=== PATIENT | male | born 1950 | race Caucasian/White ===

== ENCOUNTER 2017-02-20 08:56 | Inpatient (IN) | payer OTHER ==
[~2017-02-20] VITALS: Ht 175.3 cm; Wt 48.6 kg
[2017-02-20] VITALS (21 sets, daily range): BP systolic 103–176; BP diastolic 68–97; PULSE 91–134; RESP 18–25; TEMP 97.2–98.4; O2SAT 87–99
[2017-02-20] MEDS ORDERED: LORazepam 2 MG/ML VIAL ONE (09:08)
[2017-02-20] MEDS ORDERED: LORazepam 2 MG/ML VIAL IV PUSH ONE (09:15)
[2017-02-20] MEDS ORDERED: SODIUM CHLORIDE 0.9% FLUSH 10 ML FLUSH IVF PRN (09:15)
[2017-02-20] MEDS: RESP: ALBUTEROL 2.5 MG/IPRATROPIUM 0.5 MG NEB (SCH) INH (09:19)
--- NOTE | 2017-02-20 09:27 | RADRPT ---
EXAM DATE/TIME: 02/20/2017 09:03 [facility] COMPARISON: No previous studies available for comparison. INDICATIONS : Short of breath with wheezing. MEDICAL HISTORY : Chronic obstructive pulmonary disease. Congestive heart failure. SURGICAL HISTORY : None. ENCOUNTER: Initial ACUITY: 1 day PAIN SCORE: 0/10 LOCATION: Bilateral chest FINDINGS: Single view of the chest demonstrates a right-sided tension pneumothorax with leftward shift of the c ardiac mediastinal structures. Left lung demonstrates emphysematous changes. There is no evidence of consolidating airspace disease. Heart and mediastinal structures are otherwise unremarkable. CONCLUSION: Right-sided tension pneumothorax; emergency department physician notified immediately. Yimi Warren MD on February 20, 2017 at 9:22 Board Certified Radiologist. This report was verified electronically.
[2017-02-20] MEDS ORDERED: LIDOCAINE 1%/EPINEPHrine 1:100,000 SOLN 20 ML VIAL ONE (09:31)
[2017-02-20] MEDS: KETAMINE HCL 500 MG/10 ML VIAL ONE ×2 (09:34→09:42)
[2017-02-20 09:35] LABS: AUTOMATED NEUTROPHIL # 7.7 TH/MM3 (1.8-7.7); BASOPHIL # 0.1 TH/MM3 (0-0.2); BASOPHIL % 0.6 % (0.0-2.0); EOSINOPHIL # 0.3 TH/MM3 (0-0.4); EOSINOPHIL % 2.4 % (0.0-4.0); HEMATOCRIT 46.2 % (39.0-51.0); HEMO FLAGS DIFF FINAL; LYMPH % 24.4 % (9.0-44.0); LYMPHOCYTE # 3.1 TH/MM3 (1.0-4.8); MEAN CORPUSCULAR HEMOGLOBIN 27.8 PG (27.0-34.0); MEAN CORPUSCULAR HGB CONC 31.6 % (32.0-36.0); MONO % 11.5 % (0.0-8.0); NEUT % 61.1 % (16.0-70.0); PLATELET COUNT 280 TH/MM3 (150-450); RED BLOOD COUNT 5.25 MIL/MM3 (4.50-5.90); RED CELL DISTRIBUTION WIDTH 15.3 % (11.6-17.2); WHITE BLOOD COUNT 12.7 TH/MM3 (4.0-11.0)
[2017-02-20 09:37] LABS: PROTHROMBIN TIME - PATIENT 11.1 SEC (9.8-11.6)
[2017-02-20] MEDS: KETAMINE HCL 500 MG/5 ML VIAL IV PUSH ONE ×2 (09:43→11:47)
--- NOTE | 2017-02-20 10:06 | RADRPT ---
EXAM DATE/TIME: 02/20/2017 09:48 [facility] COMPARISON: CHEST SINGLE AP, February 20, 2017, 9:03. INDICATIONS : Post chest tube placement. MEDICAL HISTORY : Chronic obstructive pulmonary disease. Congestive heart failure. SURGICAL HISTORY : None. ENCOUNTER: Subsequent ACUITY: 1 day PAIN SCORE: Non-responsive. LOCATION: Bilateral chest FINDINGS: A single view of the chest demonstrates reexpansion of the right lung. Small right apical pneumothora x measures 4 mm of pleural separation. Small caliber chest tube in the right lower hemithorax. Left b asilar density and blunting left costophrenic angle. Emphysematous changes. Osseous structures are i ntact. CONCLUSION: 1. Small caliber right-sided chest tube with small right apical pneumothorax. 2. Reexpansion of the right lung. 3. Probable left basilar scarring. Alber Gibson MD on February 20, 2017 at 10:02 Board Certified Radiologist. This report was verified electronically.
[2017-02-20 10:13] LABS: ALKALINE PHOSPHATASE 87 U/L (45-117); ALT (GPT) 26 U/L (12-78); ANION GAP 10 MEQ/L (5-15); AST (GOT) 33 U/L (15-37); BLOOD UREA NITROGEN 13 MG/DL (7-18); CHLORIDE 103 MEQ/L (98-107); CREATINE KINASE 127 U/L (39-308); GLOMERULAR FILTRATION RATE 96 ML/MIN (>89); MAGNESIUM 2.3 MG/DL (1.5-2.5); SODIUM (NA) 138 MEQ/L (136-145); TOTAL BILIRUBIN ADULT 0.6 MG/DL (0.2-1.0)
[2017-02-20 10:14] LABS: POTASSIUM 4.4 MEQ/L (3.5-5.1)
[2017-02-20 10:26] LABS: CKMB 5.7 NG/ML (0.5-3.6)
[2017-02-20] MEDS ORDERED: ACETAMINOPHEN 325 MG TAB PO PRN (11:00)
[2017-02-20] MEDS ORDERED: NALOXONE HCL 0.4 MG/ML AMP IV PRN (11:00)
[2017-02-20] MEDS ORDERED: ONDANSETRON HCL 4 MG/2 ML VIAL IVP PRN (11:00)
[2017-02-20] MEDS ORDERED: SODIUM CHLORIDE 0.9% FLUSH 10 ML FLUSH IV FLUSH PRN (11:00)
[2017-02-20] MEDS ORDERED: BISACODYL 10 MG SUPP RECTAL PRN (11:00)
--- NOTE | 2017-02-20 11:25 | HHI.HP ---
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 in [place], came to [facility] to pick a car to deliver to [place], he has COPD/Emphysema with status post Left Upper lobe resection with no clear history of Neoplasia he has nutrition specialist in [place] Doctor Bert Hampton he had last appointment In October this year and has next follow up in March this year, he states he woke up in am with some chest discomfort, but when came to [facility] had shortness of breath worsening, he was trying to use his inhaler but was told by his coordinator to get an ambulance he was brought in to ER and found Right Pneumothorax initially on BiPAP and then Chest tube placement. stable Review of Systems Respiratory: COMPLAINS OF: Shortness of breath Past Family Social History Past Medical History COPD/Emphysema Past Surgical History Left Upper lobe resection Reported Medications Advair Singulair Spiriva Allergies: Coded Allergies: No Known Allergies (Unverified , 02/20/17) Active Ordered Medications Current Medications Medications (Trade) Dose Ordered Sig/Pawel Route Start Time Stop Time Status Last Admin (NS 1000 ml Inj) 1,000 ml @ 100 mls/hr Q10H IV 02/20/17 11:00 (NS Flush) 2 ml UNSCH PRN IV FLUSH 02/20/17 11:00 (NS Flush) 2 ml BID IV FLUSH 02/20/17 21:00 (Tylenol) 650 mg Q4H PRN PO 02/20/17 11:00 (Zofran Inj) 4 mg Q6H PRN IVP 02/20/17 11:00 (Dulcolax Supp) 10 mg DAILY PRN RECTAL 02/20/17 11:00 (Colace) 100 mg Q12HR PO 02/20/17 11:00 (Heparin Inj) 5,000 units Q8H SQ 02/20/17 12:00 (Narcan Inj) 0.4 mg UNSCH PRN IV 02/20/17 11:00 (Morphine Inj) 2 mg Q3H PRN IV PUSH 02/20/17 11:00 Family History Asked and denied Social History 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 Physical Exam Vital Signs Vital Signs Date Time Temp Pulse Resp B/P Pulse Ox O2 Delivery O2 Flow Rate FiO2 02/20/17 09:00 87 Room Air 4 02/20/17 09:00 115 25 95 BiPAP 60 02/20/17 09:00 95 BiPAP 60 02/20/17 09:00 115 20 176/97 95 BiPAP 60 02/20/17 09:00 96 35 02/20/17 08:58 97.2 115 25 176/97 87 Physical Exam GENERAL: No acute distress. SKIN: No rashes, ecchymoses or lesions. Cool and dry. HEAD: Atraumatic. Normocephalic. No temporal or scalp tenderness. EYES: Pupils equal round and reactive. Extraocular motions intact. No scleral icterus. No injection or drainage. ENT: Nose without bleeding. NECK: Trachea midline. No JVD or lymphadenopathy. Supple, nontender, no meningeal signs. CARDIOVASCULAR: Regular rate and rhythm without murmurs, gallops, or rubs. RESPIRATORY: Decreased breath sounds bilateral, mild expiratory wheezing GASTROINTESTINAL: Abdomen soft, non-tender, nondistended. No hepato-splenomegaly , or palpable masses. No guarding. MUSCULOSKELETAL: Extremities without clubbing, cyanosis, or edema. No joint tenderness, effusion, or edema noted. No calf tenderness. Negative Homans sign bilaterally. NEUROLOGICAL: Awake and alert. No focal deficits. Laboratory Laboratory Tests Test 02/20/17 09:10 White Blood Count 12.7 Red Blood Count 5.25 Hemoglobin 14.6 Hematocrit 46.2 Mean Corpuscular Volume 88.0 Mean Corpuscular Hemoglobin 27.8 Mean Corpuscular Hemoglobin 31.6 Concent Red Cell Distribution Width 15.3 Platelet Count 280 Mean Platelet Volume 8.2 Neutrophils (%) (Auto) 61.1 Lymphocytes (%) (Auto) 24.4 Monocytes (%) (Auto) 11.5 Eosinophils (%) (Auto) 2.4 Basophils (%) (Auto) 0.6 Neutrophils # (Auto) 7.7 Lymphocytes # (Auto) 3.1 Monocytes # (Auto) 1.5 Eosinophils # (Auto) 0.3 Basophils # (Auto) 0.1 CBC Comment DIFF FINAL Differential Comment Prothrombin Time 11.1 Prothromb Time International 1.0 Ratio Activated Partial 25.0 Thromboplast Time Sodium Level 138 Potassium Level 4.4 Chloride Level 103 Carbon Dioxide Level 25.0 Anion Gap 10 Blood Urea Nitrogen 13 Creatinine 0.81 Estimat Glomerular Filtration 96 Rate Random Glucose 165 Calcium Level 8.7 Magnesium Level 2.3 Total Bilirubin 0.6 Aspartate Amino Transf 33 (AST/SGOT) Alanine Aminotransferase 26 (ALT/SGPT) Alkaline Phosphatase 87 Total Creatine Kinase 127 Creatine Kinase MB 5.7 Troponin I 0.04 B-Type Natriuretic Peptide 40 Total Protein 7.5 Albumin 4.0 Result Diagram: 02/20/17 0910 02/20/17909 Imaging Last Impressions Chest X-Ray 02/20/17903 Signed Impressions: Service Date/Time: , February 20, 2017 09:03 - CONCLUSION: Right-sided tension pneumothorax; emergency department physician notified immediately. Yimi Warren MD Assessment and Plan Problem List: (1) COPD (chronic obstructive pulmonary disease) ICD Code: J44.9 Status: Acute (2) Pneumothorax on left ICD Code: J93.9 Status: Acute (3) S/P chest tube placement ICD Code: Z93.8 Status: Acute Assessment and Plan 1. Acute Pneumothorax probably related to Severe COPD/Emphysema status post Right Chest tube placement, continue Oxygen, Cardiac Monitoring, nutrition specialist consult, Bronchodilator, Mucolytic and Incentive spirometry 2. COPD/Emphysema do not look exacerbated 3. Tobacco dependence strongly recommended to stop smoking 4. Status post Left upper Lobe resection no clear diagnosis, followed by nutrition specialist Doctor Bert Hampton in [facility]. DVT prophylaxis with Heparin Gastric protection with Pepcid. Follow laboratory and Echocardiogram Code Status Full Code. Discussed Condition With ER specialist Doctor Hird and Patient. Physician Certification 2 Midnight Certification Type: Admission for Inpatient Services Order for Inpatient Services The services are ordered in accordance with Medicare regulations or non- Medicare payer requirements, as applicable. In the case of services not specified as inpatient-only, they are appropriately provided as inpatient services in accordance with the 2-midnight benchmark. Estimated LOS (days): 3 days is the estimated time the patient will need to remain in the hospital, assuming treatment plan goals are met and no additional complications. Post-Hospital Plan: Home Tanvir aPz MD February 20, 2017 11:25
--- NOTE | 2017-02-20 11:41 | PD ---
HPI Chief Complaint: Respiratory Distress Time Seen by Provider: 09:03 Travel History International Travel<30 days: No Contact w/Intl Traveler<30days: No Traveled to known affect area: No History of Present Illness HPI 66-year-old male presents with shortness of breath and wheezing. He received albuterol and Solu-Medrol prior to arrival. Patient can only nod his head yes or no and is leaning forward in the bed. History is significantly limited PFSH Past Medical History COPD: Yes Tetanus Vaccination: Unknown Influenza Vaccination: Yes Past Surgical History Oral Surgery: Yes Thoracic Surgery: Yes (UPPER LEFT LOBECTOMY ) Social History Alcohol Use: Yes (OCCASIONALLY ) Tobacco Use: Yes Substance Use: No Allergies-Medications (Allergen,Severity, Reaction): Coded Allergies: No Known Allergies (Unverified , 02/20/17) Review of Systems ROS Limitations: Clinical Condition Except as stated in HPI: all other systems reviewed are Neg (denies after chest tube other than shortness of breath) Physical Exam Exam Limitations: Clinical Condition Narrative GENERAL: Ill-appearing, well-developed patient. SKIN: Warm and dry. HEAD: Normocephalic and atraumatic. EYES: No injection or drainage. ENT: No nasal drainage noted. NECK: Supple, trachea midline. CARDIOVASCULAR: Tachycardic rate and regular rhythm RESPIRATORY: Decreased breath sounds on the right, wheezing on the left, tachypnea noted GASTROINTESTINAL: Abdomen soft, non-tender EXTREMITIES: No edema. NEUROLOGICAL: Awake, moves extremities, shakes head yes/no Data Data Last Documented VS Vital Signs Date Time Temp Pulse Resp B/P Pulse Ox O2 Delivery O2 Flow Rate FiO2 02/20/17 10:00 94 100 02/20/17 09:00 Room Air 4 02/20/17 09:00 115 25 02/20/17 09:00 176/97 02/20/17 08:58 97.2 Orders Complete Blood Count With Diff (02/20/17 09:04) Comprehensive Metabolic Panel (02/20/17 09:04) B-Type Natriuretic Peptide (02/20/17 09:04) Act Partial Throm Time (Ptt) (02/20/17 09:04) Prothrombin Time / Inr (Pt) (02/20/17 09:04) Magnesium (Mg) (02/20/17 09:04) Ckmb (Isoenzyme) Profile (02/20/17 09:04) Troponin I (02/20/17 09:04) Influenzae A/B Antigen (02/20/17 09:04) Iv Access Insert/Monitor (02/20/17 09:04) Electrocardiogram (02/20/17 09:04) Ecg Monitoring (02/20/17 09:04) Oximetry (02/20/17 09:04) Oxygen Administration (02/20/17 09:04) Chest, Single Ap (02/20/17 09:04) Sodium Chloride 0.9% Flush (Ns Flush) (02/20/17 09:15) Albuterol-Ipratropium Neb (Duoneb Neb) (02/20/17 09:15) Resp Bipap / Cpap Non Invas Vt (02/20/17 09:04) Lorazepam Inj (Ativan Inj) (02/20/17 09:15) Lorazepam Inj (Ativan Inj) (02/20/17 09:08) Lidocai-Epi 1%-1:100,000 Inj (Xylocaine- (02/20/17 09:31) Ketamine Inj (Ketalar Inj) (02/20/17 09:45) Ketamine Inj (Ketalar Inj) (02/20/17 09:34) Chest, Single Ap (02/20/17 ) CKMB (02/20/17 09:10) CKMB% (02/20/17 09:10) Admit Order (Ed Use Only) (02/20/17 10:51) Labs Laboratory Tests Test 02/20/17 09:10 White Blood Count 12.7 TH/MM3 Red Blood Count 5.25 MIL/MM3 Hemoglobin 14.6 GM/DL Hematocrit 46.2 % Mean Corpuscular Volume 88.0 FL Mean Corpuscular Hemoglobin 27.8 PG Mean Corpuscular Hemoglobin 31.6 % Concent Red Cell Distribution Width 15.3 % Platelet Count 280 TH/MM3 Mean Platelet Volume 8.2 FL Neutrophils (%) (Auto) 61.1 % Lymphocytes (%) (Auto) 24.4 % Monocytes (%) (Auto) 11.5 % Eosinophils (%) (Auto) 2.4 % Basophils (%) (Auto) 0.6 % Neutrophils # (Auto) 7.7 TH/MM3 Lymphocytes # (Auto) 3.1 TH/MM3 Monocytes # (Auto) 1.5 TH/MM3 Eosinophils # (Auto) 0.3 TH/MM3 Basophils # (Auto) 0.1 TH/MM3 CBC Comment DIFF FINAL Differential Comment Prothrombin Time 11.1 SEC Prothromb Time International 1.0 RATIO Ratio Activated Partial 25.0 SEC Thromboplast Time Sodium Level 138 MEQ/L Potassium Level 4.4 MEQ/L Chloride Level 103 MEQ/L Carbon Dioxide Level 25.0 MEQ/L Anion Gap 10 MEQ/L Blood Urea Nitrogen 13 MG/DL Creatinine 0.81 MG/DL Estimat Glomerular Filtration 96 ML/MIN Rate Random Glucose 165 MG/DL Calcium Level 8.7 MG/DL Magnesium Level 2.3 MG/DL Total Bilirubin 0.6 MG/DL Aspartate Amino Transf 33 U/L (AST/SGOT) Alanine Aminotransferase 26 U/L (ALT/SGPT) Alkaline Phosphatase 87 U/L Total Creatine Kinase 127 U/L Creatine Kinase MB 5.7 NG/ML Troponin I 0.04 NG/ML B-Type Natriuretic Peptide 40 PG/ML Total Protein 7.5 GM/DL Albumin 4.0 GM/DL MDM Medical Decision Making Medical Screen Exam Complete: Yes Emergency Medical Condition: Yes Medical Record Reviewed: No (no prior records) Interpretation(s) CBC & BMP Diagram 02/20/17 09:10 Last 24 hours Impressions Chest X-Ray 02/20/17 0904 Signed Impressions: Service Date/Time: February 09:03 - CONCLUSION: Right-sided tension pneumothorax; emergency department physician notified immediately. Yimi Warren MD Chest X-Ray 02/20/17 0000 Signed Impressions: Service Date/Time: February 09:48 - CONCLUSION: 1. Small caliber right-sided chest tube with small right apical pneumothorax. 2. Reexpansion of the right lung. 3. Probable left basilar scarring. Alber Gibson MD EKG is limited by artifact and wandering baseline but no obvious STEMI criteria , sinus tachycardia 110 Differential Diagnosis Pneumothorax, COPD, pneumonia, effusion Narrative Course Patient arrived with significant shortness of breath. BiPAP placed. Solu- Medrol given by ambulance team. Additional DuoNeb's ordered. Ativan ordered to help patient tolerate BiPAP Patient continued to appear an extremist and chest x-ray reviewed which showed large right sided pneumothorax. Pigtail chest tube placed with ketamine sedation by Dr. Beckett and BiPAP removed. As patient awoke he started talking and was able to be placed on nasal cannula and felt significantly better. He will be admitted to the intermediate care area for close monitoring. Critical Care Narrative Aggregate critical care time was 40 minutes. Time to perform other separately billable procedures was not included in the critical care time. My time did not include minutes spent treating any other patients simultaneously or on activities that did not directly contribute to the patient's treatment. The services I provided to this patient were to treat and/or prevent clinically significant deterioration that could result in: Respiratory failure I provided critical care services requiring my management, as noted below: Chart data review, documentation time, medication orders and management, vital sign assessments/reviewing monitor data, ordering and reviewing lab tests, ordering and interpreting/reviewing x-rays and diagnostic studies, care of the patient and discussion of the patient with the admitting physicians. Procedures Procedure Narrative CHEST TUBE THORACOSTOMY: The right chest was prepped with ChloraPrep. The area of the fifth intercostal interspace was infiltrated with 1% lidocaine. A 0.5 centimeter incision was made with a scalpel at the fifth intercostal space. Pigtail placed over trocar at fourth intercostal interspace performed and the pleura was punctured with immediate bautista of air. directed posteriorly and superiorly. The thoracostomy tube was secured with dressing. Patient tolerated procedure well. Physician Communication Physician Communication dr harper agrees to admit dr ordaz will follow chest tube and see patient Diagnosis Primary Impression: Pneumothorax, right Additional Impression: COPD (chronic obstructive pulmonary disease) Qualified Code: J44.1 - Chronic obstructive pulmonary disease with acute exacerbation Admitting Information Admitting Physician Requests: Admit Bria Correa MD February 20, 2017 11:41
[2017-02-20] MEDS: FAMOTIDINE 20 MG/2 ML VIAL IV PUSH SCH (11:59)
[2017-02-20] MEDS: REMOVE OLD PATCH T-DERMAL SCH (12:00)
[2017-02-20] MEDS: DOCUSATE SODIUM 100 MG CAP PO SCH ×2 (12:00→21:00)
[2017-02-20] MEDS: NICOTINE 14 MG/24 HR PATCH T-DERMAL SCH (12:00)
[2017-02-20] MEDS ORDERED: RESP: ALBUTEROL 2.5 MG/IPRATROPIUM 0.5 MG NEB (SCH) NEB (12:00)
[2017-02-20] MEDS: SODIUM CHLOR 0.9% 1000 ML INJ 1,000 ML IV SCH ×2 (12:01→21:49)
[2017-02-20] MEDS: HEPARIN SODIUM - SQ 10,000 UNITS/ML VIAL SQ SCH ×2 (12:02→21:41)
[2017-02-20] MEDS: MORPHINE SULFATE 4 MG/ML INJ IV PUSH PRN ×2 (14:58→21:49)
[2017-02-20] MEDS: RESP: ALBUTEROL 2.5 MG/IPRATROPIUM 0.5 MG NEB (SCH) NEB ×2 (15:22→21:07)
--- NOTE | 2017-02-20 15:23 | EKG ---
Date Performed: 02/20/2017 Time Performed: 09:05:35 PTAGE: 66 years EKG: BASELINE ARTIFACT PRESENT. SINUS TACHYCARDIA WITH OCCASIONAL SUPRAVENTRICULAR PREMATURE COM PLEXES ABNORMAL RHYTHM ECG INTERPRETATION BASED ON A DEFAULT AGE OF 40 YEARS I would repeat electroca rdiogram as subtle ST-T wave changes cannot be excluded given the artifact. NO PREVIOUS TRACING DOCTOR: Dwayne Medrano Interpretating Date/Time 02/20/2017 15:22:18
[2017-02-20 16:17] LABS: BLOOD, URINE TRACE (NEG); COMMENT (UR) CULT NOT INDICATED; CULTURE IF INDICATED CULT NOT INDICATED; GLUCOSE,URINE 300 mg/dL (NEG); HYALINE CAST, URINE 3 /lpf (RARE); KETONE, URINE 80 mg/dL (NEG); MUCUS URINE FEW /lpf (OCC); NITRITE,URINE NEG (NEG); PH, URINE 5.5 (5.0-8.5); SQUAMOUS EPITHELIAL CELL URINE <1 /hpf (0-5); URINE COLOR YELLOW (YELLW/STRAW)
[2017-02-20 16:55] LABS: CREATINE KINASE 168 U/L (39-308); FREE T4 1.18 NG/DL (0.76-1.46); LDL CHOLESTEROL 103 MG/DL (0-99)
[2017-02-20 17:09] LABS: HEMOGLOBIN A1a 1.1 %; HEMOGLOBIN A1b 1.6 %; HEMOGLOBIN LA1C 2.2 %; HEMOGLOBIN P3 3.8 %
[2017-02-20] MEDS: ACETAMINOPHEN/HYDROcodone 325 MG/5 MG TAB PO PRN (19:45)
[2017-02-20] MEDS: SODIUM CHLORIDE 0.9% FLUSH 10 ML FLUSH IV FLUSH SCH (21:41)
[2017-02-20] MEDS: guaiFENesin E.R. 600 MG TAB PO SCH (21:41)
--- NOTE | 2017-02-20 23:35 | MB ---
cc: Jesus HEARD M.D. DATE OF CONSULTATION 02/20/17 REASON FOR CONSULTATION Pneumothorax. HISTORY OF PRESENT ILLNESS This is a 66-hour-old white male with a known prior history of COPD and emphysema who has been admitted with complaints of severe shortness of breath and right sided chest discomfort since this morning. The patient apparently was using an albuterol inhaler but became more and more dyspneic and thus was brought in via [facility] and was seen in the emergency room where a chest x-ray showed a large right pneumothorax. A chest tube was then inserted with significant resolution of the pneumothorax and the patient has now been placed on a nasal cannula at 4 liters maintaining his sats over 92%. The patient denies any chest pains at this time but had some wheezing and shortness of breath and denies any fevers. He does have an occasional cough. PAST MEDICAL HISTORY 1. Significant for left upper lobe resection for a lung tumor. The patient stated that it was not noted to be malignant. 2. He also has had history of pneumonia in the past. PAST SURGICAL HISTORY Denies any other significant surgery. ALLERGIES None listed. HABITS The patient smoked one-pack per day for over 50 years. Drinks alcohol occasionally and has used marijuana. 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 MEDICATIONS 1. Advair Diskus 250 x 50. 2. Singulair 10 mg 3. Spiriva one capsule a day FAMILY HISTORY Noncontributory. REVIEW OF SYSTEMS The patient denies recent weight loss. He has had no leg swelling. There is no abdominal pain, nausea, vomiting, no urinary symptoms. No leg or calf muscle pains. He has some joint pains of his extremities. He denies skin lesions. PHYSICAL EXAMINATION GENERAL: This is a thinly built middle-aged white male who is alert and mildly dyspneic at rest. VITAL SIGNS: Blood pressure 160/70, pulse is 112, respirations 24, temperature 97.5. HEENT: Head normocephalic. Pupils reactive. Tongue is moist. Throat is clear. Nasal mucosa injected. NECK: Supple. No bruits, no thyroid enlargement or lymphadenopathy. CHEST: Increased AP diameter with diminished breath sounds at the periphery. There is a chest tube in place in the right chest and wheezes are scattered bilaterally, prolonged expirations. HEART: The heart sounds are regular S1 and S2. No murmur. ABDOMEN: Soft, benign. No mass, no organomegaly. EXTREMITIES: No edema. Normal reflexes. NEUROLOGIC: No gross motor deficits. Cranial nerves are grossly intact. RECTAL: Exam is deferred. SKIN: Dry and cool. IMPRESSION 1. Spontaneous right pneumothorax, resolving. 2. Severe emphysema with chronic bronchitis 3. History of left upper lobe resection for lung tumor PLAN The patient has a chest tube in place which was placed to wall suction at -20 cm, nebulized DuoNeb solution added q.i.d. Solu-Medrol 40 mg IV every 8 hours to be added and oxygen supplementation at three liters nasal cannula. The patient will have a follow up chest x-ray done tomorrow. Of the lung is fully expanded, the chest tube will be clamped and chest x-ray repeated as well prior to discontinuing the chest tube. Thank you, Dr. Martin, for this consultation. MD EVANGELINA Corbin/ /10:48 PM /11:16 PM
[2017-02-21] VITALS (31 sets, daily range): BP systolic 108–128; BP diastolic 72–81; PULSE 70–124; RESP 16–20; TEMP 97.4–98.2; O2SAT 93–98
[2017-02-21] MEDS: FAMOTIDINE 20 MG/2 ML VIAL IV PUSH SCH ×3 (00:03→23:47)
[2017-02-21] MEDS: HEPARIN SODIUM - SQ 10,000 UNITS/ML VIAL SQ SCH ×3 (04:00→21:02)
--- NOTE | 2017-02-21 05:27 | RADRPT ---
EXAM DATE/TIME: 02/21/2017 05:05 [facility] COMPARISON: CHEST SINGLE AP, February 20, 2017, 9:48. INDICATIONS : Evalaute for pneumothorax. MEDICAL HISTORY : Chronic obstructive pulmonary disease. Congestive heart failure. SURGICAL HISTORY : None. ENCOUNTER: Subsequent ACUITY: 2 days PAIN SCORE: 0/10 LOCATION: chest FINDINGS: There is a small apical right pneumothorax with approximately 1 cm separation. This is mildly increas ed compared to the prior study. Right-sided chest tube remains in place. There is subcutaneous emphys letty along the right chest wall. The lung phoenix are stable and clear compared to the prior study. CONCLUSION: Small apical right pneumothorax with approximately 1 cm separation. Sonido Valladares MD on February 21, 2017 at 5:24 Board Certified Radiologist. This report was verified electronically.
[2017-02-21 06:57] LABS: AUTOMATED NEUTROPHIL # 10.1 TH/MM3 (1.8-7.7); BASOPHIL % 0.1 % (0.0-2.0); EOSINOPHIL % 0.1 % (0.0-4.0); HEMATOCRIT 37.6 % (39.0-51.0); HEMO FLAGS DIFF FINAL; LYMPH % 11.1 % (9.0-44.0); LYMPHOCYTE # 1.5 TH/MM3 (1.0-4.8); MEAN CELL VOLUME 86.1 FL (80.0-100.0); MEAN CORPUSCULAR HEMOGLOBIN 27.7 PG (27.0-34.0); MEAN CORPUSCULAR HGB CONC 32.2 % (32.0-36.0); MONO % 11.6 % (0.0-8.0); NEUT % 77.1 % (16.0-70.0); PLATELET COUNT 224 TH/MM3 (150-450); RED BLOOD COUNT 4.36 MIL/MM3 (4.50-5.90); RED CELL DISTRIBUTION WIDTH 14.9 % (11.6-17.2); WHITE BLOOD COUNT 13.1 TH/MM3 (4.0-11.0)
[2017-02-21 07:21] LABS: BICARBONATE 25.9 MEQ/L (21.0-32.0); POTASSIUM 4.1 MEQ/L (3.5-5.1)
[2017-02-21] MEDS: RESP: ALBUTEROL 2.5 MG/IPRATROPIUM 0.5 MG NEB (SCH) NEB ×3 (07:30→20:26)
--- NOTE | 2017-02-21 08:02 | HHI.PR ---
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 02/21: Seen in his bedroom stable, no nausea, vomit or diarrhea, developed Subcutaneous Emphysema continue present care at this time. Objective Vital Signs Date Time Temp Pulse Resp B/P Pulse Ox O2 Delivery O2 Flow Rate FiO2 02/21/17 06:07 89 02/21/17 05:10 89 02/21/17 04:02 90 02/21/17 03:57 93 02/21/17 03:37 97.5 94 18 108/72 97 02/21/17 02:34 93 02/21/17 01:01 94 02/21/17 00:29 95 02/21/17 00:22 98.2 101 20 115/81 94 02/20/17 23:00 125 02/20/17 22:00 99 02/20/17 21:00 101 02/20/17 21:00 97 Nasal Cannula 3.00 02/20/17 20:45 20 02/20/17 20:00 97 02/20/17 19:20 98.4 105 18 124/96 96 02/20/17 19:20 101 02/20/17 18:00 112 02/20/17 17:00 102 02/20/17 16:01 104 02/20/17 15:05 18 02/20/17 15:01 98.2 104 18 121/84 95 02/20/17 15:00 104 02/20/17 14:00 98 02/20/17 13:00 96 18 106/73 99 Nasal Cannula 2 02/20/17 12:30 96 18 109/71 97 Nasal Cannula 2 02/20/17 12:00 91 18 103/72 98 Nasal Cannula 2 02/20/17 11:30 100 18 108/68 96 Nasal Cannula 2 02/20/17 11:00 108 18 115/72 96 Nasal Cannula 2 02/20/17 10:30 110 18 114/80 97 Nasal Cannula 2 02/20/17 10:00 94 100 02/20/17 10:00 129 18 135/89 97 Nasal Cannula 2 02/20/17 09:30 134 18 147/94 95 BiPAP 60 02/20/17 09:00 87 Room Air 4 02/20/17 09:00 115 25 95 BiPAP 60 02/20/17 09:00 95 BiPAP 60 02/20/17 09:00 115 20 176/97 95 BiPAP 60 02/20/17 09:00 96 35 02/20/17 08:58 97.2 115 25 176/97 87 I/O 02/20/17 02/20/17 02/20/17 02/21/17 02/21/17 02/21/17 07:00 15:00 23:00 07:00 15:00 23:00 Intake Total 2216 ml Output Total 200 ml 1025 ml Balance -200 ml 1191 ml Intake Oral 480 ml IV Total 1736 ml Output Urine Total 200 ml 1025 ml Chest Tube Drainage Total 0 ml # Voids 1 # Bowel Movements 0 Result Diagram: 02/21/1762102/21/17621 Imaging Last Impressions Chest X-Ray 02/21/17599 Signed Impressions: Service Date/Time: Tuesday, February 21, 2017 05:05 - CONCLUSION: Small apical right pneumothorax with approximately 1 cm separation. Sonido Valladares MD Procedures Right Chest tube placement Other Results Laboratory Tests Test 02/20/17 02/20/17 02/20/17 02/21/17 09:10 15:40 16:22 06:22 Prothrombin Time 11.1 SEC Prothromb Time International 1.0 RATIO Ratio Activated Partial 25.0 SEC Thromboplast Time Magnesium Level 2.3 MG/DL Total Bilirubin 0.6 MG/DL Aspartate Amino Transf 33 U/L (AST/SGOT) Alanine Aminotransferase 26 U/L (ALT/SGPT) Alkaline Phosphatase 87 U/L Creatine Kinase MB 5.7 NG/ML B-Type Natriuretic Peptide 40 PG/ML Total Protein 7.5 GM/DL Albumin 4.0 GM/DL Urine Color YELLOW Urine Turbidity CLEAR Urine pH 5.5 Urine Specific [place] 1.023 Urine Protein 30 mg/dL Urine Glucose (UA) 300 mg/dL Urine Ketones 80 mg/dL Urine Occult Blood TRACE Urine Nitrite NEG Urine Bilirubin NEG Urine Urobilinogen LESS THAN 2.0 MG/DL Urine Leukocyte Esterase NEG Urine RBC LESS THAN 1 /hpf Urine WBC 2 /hpf Urine Squamous Epithelial <1 /hpf Cells Urine Hyaline Casts 3 /lpf Urine Mucus FEW /lpf Microscopic Urinalysis Comment CULT NOT INDICATED Hemoglobin A1c 5.8 % Total Creatine Kinase 168 U/L Troponin I 1.81 NG/ML Triglycerides Level 50 MG/DL Cholesterol Level 181 MG/DL LDL Cholesterol 103 MG/DL HDL Cholesterol 68.0 MG/DL Cholesterol/HDL Ratio 2.66 RATIO Free Thyroxine 1.18 NG/DL Thyroid Stimulating Hormone 0.286 uIU/ML 3rd Gen White Blood Count 13.1 TH/MM3 Red Blood Count 4.36 MIL/MM3 Hemoglobin 12.1 GM/DL Hematocrit 37.6 % Mean Corpuscular Volume 86.1 FL Mean Corpuscular Hemoglobin 27.7 PG Mean Corpuscular Hemoglobin 32.2 % Concent Red Cell Distribution Width 14.9 % Platelet Count 224 TH/MM3 Mean Platelet Volume 8.1 FL Neutrophils (%) (Auto) 77.1 % Lymphocytes (%) (Auto) 11.1 % Monocytes (%) (Auto) 11.6 % Eosinophils (%) (Auto) 0.1 % Basophils (%) (Auto) 0.1 % Neutrophils # (Auto) 10.1 TH/MM3 Lymphocytes # (Auto) 1.5 TH/MM3 Monocytes # (Auto) 1.5 TH/MM3 Eosinophils # (Auto) 0.0 TH/MM3 Basophils # (Auto) 0.0 TH/MM3 CBC Comment DIFF FINAL Differential Comment Sodium Level 142 MEQ/L Potassium Level 4.1 MEQ/L Chloride Level 108 MEQ/L Carbon Dioxide Level 25.9 MEQ/L Anion Gap 8 MEQ/L Blood Urea Nitrogen 14 MG/DL Creatinine 0.72 MG/DL Estimat Glomerular Filtration 110 ML/MIN Rate Random Glucose 114 MG/DL Calcium Level 8.5 MG/DL Objective Remarks GENERAL: No acute distress. SKIN: No rashes, ecchymoses or lesions. Cool and dry. HEAD: Atraumatic. Normocephalic. No temporal or scalp tenderness. EYES: Pupils equal round and reactive. Extraocular motions intact. No scleral icterus. No injection or drainage. ENT: Nose without bleeding. NECK: Trachea midline. No JVD or lymphadenopathy. Supple, nontender, no meningeal signs. CARDIOVASCULAR: Regular rate and rhythm without murmurs, gallops, or rubs. RESPIRATORY: Decreased breath sounds bilateral, Right chest tube in place, and Subcutaneous Emphysema. GASTROINTESTINAL: Abdomen soft, non-tender, nondistended. No hepato-splenomegaly , or palpable masses. No guarding. MUSCULOSKELETAL: Extremities without clubbing, cyanosis, or edema. NEUROLOGICAL: Awake and alert. No focal deficits. Medications and IVs Current Medications Medications (Trade) Dose Ordered Sig/Pawel Route Start Time Stop Time Status Last Admin (NS 1000 ml Inj) 1,000 ml @ 100 mls/hr Q10H IV 02/20/17 11:00 02/20/17 21:49 (NS Flush) 2 ml UNSCH PRN IV FLUSH 02/20/17 11:00 (NS Flush) 2 ml BID IV FLUSH 02/20/17 21:00 02/20/17 21:41 (Tylenol) 650 mg Q4H PRN PO 02/20/17 11:00 (Zofran Inj) 4 mg Q6H PRN IVP 02/20/17 11:00 (Dulcolax Supp) 10 mg DAILY PRN RECTAL 02/20/17 11:00 (Colace) 100 mg Q12HR PO 02/20/17 11:00 02/20/17 12:00 (Heparin Inj) 5,000 units Q8H SQ 02/20/17 12:00 02/21/17 04:00 (Narcan Inj) 0.4 mg UNSCH PRN IV 02/20/17 11:00 (Morphine Inj) 2 mg Q3H PRN IV PUSH 02/20/17 11:00 02/20/17 21:49 (Mucinex Er) 600 mg BID PO 02/20/17 21:00 02/20/17 21:41 (Habitrol 14 Mg Patch.24 Hr) 1 patch DAILY T-DERMAL 02/20/17 12:00 02/20/17 12:00 Miscellaneous Information 1 DAILY T-DERMAL 02/20/17 12:00 (Pepcid Inj) 20 mg Q12H IV PUSH 02/20/17 12:00 02/21/17 00:03 ([place] 5-325 Mg) 1 tab Q4H PRN PO 02/20/17 18:30 02/20/17 19:45 A/P Problem List: (1) Pneumothorax, right ICD Code: J93.9 (2) COPD (chronic obstructive pulmonary disease) ICD Code: J44.9 (3) S/P chest tube placement ICD Code: Z93.8 Assessment and Plan 1. Acute Pneumothorax probably related to Severe COPD/Emphysema status post Right Chest tube placement, continue Oxygen, Cardiac Monitoring, office services specialist following, Bronchodilator, Mucolytic and Incentive spirometry. 2. COPD/Emphysema Mild expiratory wheezing, started on Steroids by office services specialist. 3. Tobacco dependence strongly recommended to stop smoking 4. Status post Left upper Lobe resection no clear diagnosis, followed by office services specialist Doctor Bert Hampton in [place] at [facility]. 5. Mild Leukocytosis worsening probable secondary to #1. 6. Mild Troponin elevation now trending down, probable related to #1. DVT prophylaxis with Heparin Gastric protection with Pepcid. Code Status Full Code. Discussed Condition With Patient. Discharge Planning Expected in one to two days. once cleared by office services specialist. Problem Qualifiers (1) COPD (chronic obstructive pulmonary disease): Qualified Code: J44.1 - Chronic obstructive pulmonary disease with acute exacerbation Tanvir Paz MD February 21, 2017 08:02
[2017-02-21] MEDS: NICOTINE 14 MG/24 HR PATCH T-DERMAL SCH (08:14)
[2017-02-21] MEDS: SODIUM CHLORIDE 0.9% FLUSH 10 ML FLUSH IV FLUSH SCH ×2 (08:15→21:02)
[2017-02-21] MEDS: REMOVE OLD PATCH T-DERMAL SCH (08:15)
[2017-02-21] MEDS: DOCUSATE SODIUM 100 MG CAP PO SCH ×2 (08:15→21:01)
[2017-02-21] MEDS: guaiFENesin E.R. 600 MG TAB PO SCH ×2 (08:15→21:01)
[2017-02-21] MEDS: SODIUM CHLOR 0.9% 1000 ML INJ 1,000 ML IV SCH ×2 (08:17→18:34)
[2017-02-21] MEDS: ACETAMINOPHEN/HYDROcodone 325 MG/5 MG TAB PO PRN ×3 (10:22→23:51)
[2017-02-21] MEDS: MORPHINE SULFATE 4 MG/ML INJ IV PUSH PRN (17:39)
--- NOTE | 2017-02-21 17:56 | HHI.PR ---
Subjective Remarks Had some Subcutaneous Emphysema on the right. Chest tube is leaking. Still has a Right Pneumothorax Objective Vital Signs Date Time Temp Pulse Resp B/P Pulse Ox O2 Delivery O2 Flow Rate FiO2 02/21/17 17:01 86 02/21/17 16:00 84 02/21/17 15:01 97.4 85 18 112/72 97 02/21/17 15:00 70 02/21/17 14:01 75 02/21/17 13:00 78 02/21/17 12:00 124 02/21/17 11:01 97.8 89 18 109/79 98 02/21/17 11:00 116 02/21/17 10:00 96 02/21/17 09:01 96 02/21/17 08:15 97.6 91 16 125/77 95 02/21/17 08:00 92 02/21/17 07:35 94 Nasal Cannula 1.00 02/21/17 07:00 79 02/21/17 06:07 89 02/21/17 05:10 89 02/21/17 04:02 90 02/21/17 03:57 93 02/21/17 03:37 97.5 94 18 108/72 97 02/21/17 02:34 93 02/21/17 01:01 94 02/21/17 00:29 95 02/21/17 00:22 98.2 101 20 115/81 94 02/20/17 23:00 125 02/20/17 22:00 99 02/20/17 21:00 101 02/20/17 21:00 97 Nasal Cannula 3.00 02/20/17 20:45 20 02/20/17 20:00 97 02/20/17 19:20 98.4 105 18 124/96 96 02/20/17 19:20 101 02/20/17 18:00 112 I/O 02/20/17 02/20/17 02/20/17 02/21/17 02/21/17 02/21/17 07:00 15:00 23:00 07:00 15:00 23:00 Intake Total 2216 ml Output Total 200 ml 1025 ml Balance -200 ml 1191 ml Intake Oral 480 ml IV Total 1736 ml Output Urine Total 200 ml 1025 ml Chest Tube Drainage Total 0 ml # Voids 1 # Bowel Movements 0 Result Diagram: 02/21/17 0622 02/21/17 0622 Procedures Right Chest tube placement Objective Remarks GENERAL: This is a thinly built middle-aged white male who is alert and mildly dyspneic at rest. HEENT: Head normocephalic. Pupils reactive. Tongue is moist. Throat is clear. Nasal mucosa injected. NECK: Supple. No bruits, no thyroid enlargement or lymphadenopathy. CHEST: Increased AP diameter with diminished breath sounds at the periphery. There is a chest tube in place in the right chest and wheezes are scattered. Has Sub Cutaneous emphysema of chest wall. bilaterally, prolonged expirations. HEART: The heart sounds are regular S1 and S2. No murmur. ABDOMEN: Soft, benign. No mass, no organomegaly. EXTREMITIES: No edema. Normal reflexes. NEUROLOGIC: No gross motor deficits. Cranial nerves are grossly intact. RECTAL: Exam is deferred. SKIN: Dry and cool. Assessment and Plan Assessment and Plan IMPRESSION 1. Spontaneous right pneumothorax, resolving. 2. Severe emphysema with chronic bronchitis 3. 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 Sub Q Emphysema Plan : 1. Rpt Chest X aysha in am. 2. Chest tube to wall suction 20 Cm. 3. Nebs qid , duoneb. 4. Solumedrol 40 mg IV q8h. 5. Add Levaquin 500 mg IV q24h. Jesus Harvey MD February 21, 2017 17:56
[2017-02-22] VITALS (29 sets, daily range): BP systolic 114–140; BP diastolic 75–90; PULSE 67–99; RESP 20; TEMP 98.2–98.6; O2SAT 94–99
--- NOTE | 2017-02-22 05:06 | RADRPT ---
EXAM DATE/TIME: 02/22/2017 04:19 [place] COMPARISON: CHEST SINGLE AP, February 21, 2017, 5:05. INDICATIONS : Shortness of breath, possible pulmonary disease. MEDICAL HISTORY : Chronic obstructive pulmonary disease. Congestive heart failure. SURGICAL HISTORY : None. ENCOUNTER: Subsequent ACUITY: 3 days PAIN SCORE: 0/10 LOCATION: Bilateral chest FINDINGS: The right chest tube remains in place. The chest tube has been repositioned into the right apex area. No definite pneumothorax is seen. However there is subcutaneous emphysema along the right chest wall which obscured some of the detail. The lungs are hyperaerated bilaterally. No evidence of any new or focal infiltrates. Heart size is stable. CONCLUSION: 1. It appears that the previously noted small right apical pneumothorax has resolved. 2. Chest tube repositioned into right apical area. 3. Subcutaneous emphysema along the right chest wall. Sonido Valladares MD on February 22, 2017 at 5:03 Board Certified Radiologist. This report was verified electronically.
[2017-02-22] MEDS: HEPARIN SODIUM - SQ 10,000 UNITS/ML VIAL SQ SCH ×3 (06:20→20:48)
[2017-02-22] MEDS: RESP: ALBUTEROL 2.5 MG/IPRATROPIUM 0.5 MG NEB (SCH) NEB ×3 (06:39→19:02)
[2017-02-22] MEDS: ACETAMINOPHEN/HYDROcodone 325 MG/5 MG TAB PO PRN ×4 (07:51→22:21)
--- NOTE | 2017-02-22 08:01 | HHI.PR ---
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 02/22: Stable in his bedroom discussed with nurse Miss Root, minimal drainage for probable Chest tube removal if indicated by clinical transformation specialist, his subcutaneous Emphysema is increased now has it in his right arm his back to the lumbar area and anterior chest area, no Nausea, vomit or diarrhea. Objective Vital Signs Date Time Temp Pulse Resp B/P Pulse Ox O2 Delivery O2 Flow Rate FiO2 02/22/17 07:27 87 02/22/17 05:01 76 02/22/17 04:40 74 02/22/17 04:00 98.2 84 20 130/87 94 02/22/17 03:09 67 02/22/17 02:00 82 02/22/17 01:00 88 02/22/17 00:00 90 02/22/17 00:00 98.2 69 20 122/77 94 02/21/17 23:00 72 02/21/17 22:00 78 02/21/17 21:00 106 02/21/17 20:32 93 Nasal Cannula 2.00 02/21/17 20:00 98.0 95 20 128/81 93 02/21/17 20:00 86 02/21/17 19:00 100 02/21/17 18:01 120 02/21/17 17:01 86 02/21/17 16:00 84 02/21/17 15:01 97.4 85 18 112/72 97 02/21/17 15:00 70 02/21/17 14:01 75 02/21/17 13:00 78 02/21/17 12:00 124 02/21/17 11:01 97.8 89 18 109/79 98 02/21/17 11:00 116 02/21/17 10:00 96 02/21/17 09:01 96 02/21/17 08:15 97.6 91 16 125/77 95 I/O 02/21/17 02/21/17 02/21/17 02/22/17 02/22/17 02/22/17 07:00 15:00 23:00 07:00 15:00 23:00 Intake Total 2216 ml 3621 ml 1476 ml Output Total 1025 ml 1177 ml 610 ml Balance 1191 ml 2444 ml 866 ml Intake Oral 480 ml 720 ml 480 ml IV Total 1736 ml 2901 ml 996 ml Output Urine Total 1025 ml 1175 ml 600 ml Chest Tube Drainage Total 0 ml 10 ml Drainage Total 2 ml # Voids 6 # Bowel Movements 1 Result Diagram: 02/21/1762102/21/17621 Imaging Last Impressions Chest X-Ray 02/22/17 06 Signed Impressions: Service Date/Time: Wednesday, February 22, 2017 04:19 - CONCLUSION: 1. It appears that the previously noted small right apical pneumothorax has resolved. 2. Chest tube repositioned into right apical area. 3. Subcutaneous emphysema along the right chest wall. Sonido Valladares MD Procedures Right Chest tube placement Other Results Laboratory Tests Test 02/20/17 02/20/17 02/20/17 02/21/17 09:10 15:40 16:22 06:22 Prothrombin Time 11.1 SEC Prothromb Time International 1.0 RATIO Ratio Activated Partial 25.0 SEC Thromboplast Time Magnesium Level 2.3 MG/DL Total Bilirubin 0.6 MG/DL Aspartate Amino Transf 33 U/L (AST/SGOT) Alanine Aminotransferase 26 U/L (ALT/SGPT) Alkaline Phosphatase 87 U/L Creatine Kinase MB 5.7 NG/ML B-Type Natriuretic Peptide 40 PG/ML Total Protein 7.5 GM/DL Albumin 4.0 GM/DL Urine Color YELLOW Urine Turbidity CLEAR Urine pH 5.5 Urine Specific [place] 1.023 Urine Protein 30 mg/dL Urine Glucose (UA) 300 mg/dL Urine Ketones 80 mg/dL Urine Occult Blood TRACE Urine Nitrite NEG Urine Bilirubin NEG Urine Urobilinogen LESS THAN 2.0 MG/DL Urine Leukocyte Esterase NEG Urine RBC LESS THAN 1 /hpf Urine WBC 2 /hpf Urine Squamous Epithelial <1 /hpf Cells Urine Hyaline Casts 3 /lpf Urine Mucus FEW /lpf Microscopic Urinalysis Comment CULT NOT INDICATED Hemoglobin A1c 5.8 % Total Creatine Kinase 168 U/L Troponin I 1.81 NG/ML Triglycerides Level 50 MG/DL Cholesterol Level 181 MG/DL LDL Cholesterol 103 MG/DL HDL Cholesterol 68.0 MG/DL Cholesterol/HDL Ratio 2.66 RATIO Free Thyroxine 1.18 NG/DL Thyroid Stimulating Hormone 0.286 uIU/ML 3rd Gen White Blood Count 13.1 TH/MM3 Red Blood Count 4.36 MIL/MM3 Hemoglobin 12.1 GM/DL Hematocrit 37.6 % Mean Corpuscular Volume 86.1 FL Mean Corpuscular Hemoglobin 27.7 PG Mean Corpuscular Hemoglobin 32.2 % Concent Red Cell Distribution Width 14.9 % Platelet Count 224 TH/MM3 Mean Platelet Volume 8.1 FL Neutrophils (%) (Auto) 77.1 % Lymphocytes (%) (Auto) 11.1 % Monocytes (%) (Auto) 11.6 % Eosinophils (%) (Auto) 0.1 % Basophils (%) (Auto) 0.1 % Neutrophils # (Auto) 10.1 TH/MM3 Lymphocytes # (Auto) 1.5 TH/MM3 Monocytes # (Auto) 1.5 TH/MM3 Eosinophils # (Auto) 0.0 TH/MM3 Basophils # (Auto) 0.0 TH/MM3 CBC Comment DIFF FINAL Differential Comment Sodium Level 142 MEQ/L Potassium Level 4.1 MEQ/L Chloride Level 108 MEQ/L Carbon Dioxide Level 25.9 MEQ/L Anion Gap 8 MEQ/L Blood Urea Nitrogen 14 MG/DL Creatinine 0.72 MG/DL Estimat Glomerular Filtration 110 ML/MIN Rate Random Glucose 114 MG/DL Calcium Level 8.5 MG/DL Objective Remarks GENERAL: No acute distress. SKIN: No rashes, ecchymoses or lesions. Cool and dry. HEAD: Atraumatic. Normocephalic. No temporal or scalp tenderness. EYES: Pupils equal round and reactive. Extraocular motions intact. No scleral icterus. No injection or drainage. ENT: Nose without bleeding. NECK: Trachea midline. No JVD or lymphadenopathy. Supple, nontender, no meningeal signs. CARDIOVASCULAR: Regular rate and rhythm without murmurs, gallops, or rubs. RESPIRATORY: Decreased breath sounds bilateral, Right chest tube in place, worsening subcutaneous Emphysema. GASTROINTESTINAL: Abdomen soft, non-tender, nondistended. No hepato-splenomegaly , or palpable masses. No guarding. MUSCULOSKELETAL: Extremities without clubbing, cyanosis, or edema. NEUROLOGICAL: Awake and alert. No focal deficits. Medications and IVs Current Medications Medications (Trade) Dose Ordered Sig/Pawel Route Start Time Stop Time Status Last Admin (NS 1000 ml Inj) 1,000 ml @ 83 mls/hr Q12H3M IV 02/20/17 11:00 02/21/17 18:34 (NS Flush) 2 ml UNSCH PRN IV FLUSH 02/20/17 11:00 (NS Flush) 2 ml BID IV FLUSH 02/20/17 21:00 02/21/17 21:02 (Tylenol) 650 mg Q4H PRN PO 02/20/17 11:00 (Zofran Inj) 4 mg Q6H PRN IVP 02/20/17 11:00 (Dulcolax Supp) 10 mg DAILY PRN RECTAL 02/20/17 11:00 (Colace) 100 mg Q12HR PO 02/20/17 11:00 02/21/17 21:01 (Heparin Inj) 5,000 units Q8H SQ 02/20/17 12:00 02/22/17 06:20 (Narcan Inj) 0.4 mg UNSCH PRN IV 02/20/17 11:00 (Morphine Inj) 2 mg Q3H PRN IV PUSH 02/20/17 11:00 02/21/17 17:39 (Mucinex Er) 600 mg BID PO 02/20/17 21:00 02/21/17 21:01 (Habitrol 14 Mg Patch.24 Hr) 1 patch DAILY T-DERMAL 02/20/17 12:00 02/21/17 08:14 Miscellaneous Information 1 DAILY T-DERMAL 02/20/17 12:00 02/21/17 08:15 (Pepcid Inj) 20 mg Q12H IV PUSH 02/20/17 12:00 02/21/17 23:47 ([place] 5-325 Mg) 1 tab Q4H PRN PO 02/20/17 18:30 02/22/17 07:51 (Levaquin) 500 mg DAILY PO 02/22/17 09:00 A/P Problem List: (1) Pneumothorax, right ICD Code: J93.9 (2) COPD (chronic obstructive pulmonary disease) ICD Code: J44.9 (3) S/P chest tube placement ICD Code: Z93.8 Assessment and Plan 1. Acute Pneumothorax probably related to Severe COPD/Emphysema status post Right Chest tube placement, continue Oxygen, Cardiac Monitoring, clinical transformation specialist following, Bronchodilator, Mucolytic and Incentive spirometry. added Levaquin by mouth today. worsening subcutaneous emphysema. Improving on CXR may remove Chest tube today if recommended by clinical transformation specialist. 2. COPD/Emphysema Mild expiratory wheezing, started on Steroids by clinical transformation specialist. 3. Tobacco dependence strongly recommended to stop smoking 4. Status post Left upper Lobe resection no clear diagnosis, followed by clinical transformation specialist Doctor Bert Hampton in [place] at [facility]. 5. Mild Leukocytosis worsening probable secondary to #1 started on Levaquin by clinical transformation specialist. 6. Mild Troponin elevation now trending down, probable related to #1. DVT prophylaxis with Heparin Gastric protection with Pepcid. Code Status Full Code. Discussed Condition With Patient and Nurse miss Root Discharge Planning Expected in one to two days. once cleared by clinical transformation specialist. Problem Qualifiers (1) COPD (chronic obstructive pulmonary disease): Qualified Code: J44.1 - Chronic obstructive pulmonary disease with acute exacerbation Tanvir Paz MD February 22, 2017 08:01
[2017-02-22] MEDS: DOCUSATE SODIUM 100 MG CAP PO SCH ×2 (09:00→20:46)
[2017-02-22] MEDS: REMOVE OLD PATCH T-DERMAL SCH (09:00)
[2017-02-22] MEDS: SODIUM CHLORIDE 0.9% FLUSH 10 ML FLUSH IV FLUSH SCH ×2 (09:00→20:48)
[2017-02-22] MEDS: MORPHINE SULFATE 4 MG/ML INJ IV PUSH PRN ×2 (09:32→20:47)
[2017-02-22] MEDS: LEVOFLOXACIN 500 MG TAB PO SCH (09:34)
[2017-02-22] MEDS: guaiFENesin E.R. 600 MG TAB PO SCH ×2 (09:34→20:46)
[2017-02-22] MEDS: NICOTINE 14 MG/24 HR PATCH T-DERMAL SCH (09:34)
[2017-02-22] MEDS: FAMOTIDINE 20 MG/2 ML VIAL IV PUSH SCH ×2 (12:12→23:42)
--- NOTE | 2017-02-22 13:00 | PD.CONS ---
History of Present Illness Consult Requested By Primary Care Physician No Primary Care Physician Diagnoses: History of Present Illness 66 y/o Male with h/o significant COPD and ongoing tobacco abuse presents with significant dyspnea. He was brought to the ED by ambulance and found to have a large right pneumothorax. He had a chest tube placed and developed subcutaneous emphysema. He is not in any distress currently. He also has a significant h/o left upper lobectomy in the past. Review of Systems Constitutional: DENIES: Diaphoretic episodes, Fatigue, Fever, Weight gain, Weight loss, Chills, Dizziness, Change in appetite, Night Sweats Endocrine: DENIES: Heat/cold intolerance, Polydipsia, Polyuria, Polyphagia Eyes: DENIES: Blurred vision, Diplopia, Eye inflammation, Eye pain, Vision loss , Photosensitivity, Double Vision Ears, nose, mouth, throat: DENIES: Tinnitus, Hearing loss, Vertigo, Nasal discharge, Oral lesions, Throat pain, Hoarseness, Ear Pain, Running Nose, Epistaxis, Sinus Pain, Toothache, Odynophagia Respiratory: COMPLAINS OF: Shortness of breath, DENIES: Apneas, Cough, Snoring , Wheezing, Hemoptysis, Sputum production Cardiovascular: COMPLAINS OF: Chest pain, Dyspnea on Exertion, DENIES: Palpitations, Syncope, PND, Lower Extremity Edema, Orthopnea, Claudication Gastrointestinal: COMPLAINS OF: Abdominal pain, Black stools, Bloody stools, Constipation, Diarrhea, Nausea, Vomiting, Difficulty Swallowing, Anorexia Genitourinary: DENIES: Sexual dysfunction, Urinary frequency, Urinary incontinence, Urgency, Hematuria, Dysuria, Nocturia, Penile Discharge, Testicular Pain, Testicular Swelling Musculoskeletal: DENIES: Joint pain, Muscle aches, Stiffness, Joint Swelling, Back pain, Neck pain Integumentary: DENIES: Abnormal pigmentation, Nail changes, Pruritus, Rash Hematologic/lymphatic: DENIES: Bruising, Lymphadenopathy Immunologic/allergic: DENIES: Eczema, Urticaria Neurologic: DENIES: Abnormal gait, Headache, Localized weakness, Paresthesias, Seizures, Speech Problems, Tremor, Poor Balance Psychiatric: DENIES: Anxiety, Confusion, Mood changes, Depression, Hallucinations, Agitation, Suicidal Ideation, Homicidal Ideation, Delusions Past Family Social History Allergies: Coded Allergies: No Known Allergies (Unverified , 02/20/17) Past Medical History Past Medical History COPD/Emphysema Past Surgical History Left Upper lobe resection Reported Medications Advair Mashair Spiriva Active Ordered Medications Current Medications Medications (Trade) Dose Ordered Sig/Pawel Route Start Time Stop Time Status Last Admin (NS 1000 ml Inj) 1,000 ml @ 83 mls/hr Q12H3M IV 02/20/17 11:00 02/21/17 18:34 (NS Flush) 2 ml UNSCH PRN IV FLUSH 02/20/17 11:00 (NS Flush) 2 ml BID IV FLUSH 02/20/17 21:00 02/22/17 09:00 (Tylenol) 650 mg Q4H PRN PO 02/20/17 11:00 (Zofran Inj) 4 mg Q6H PRN IVP 02/20/17 11:00 (Dulcolax Supp) 10 mg DAILY PRN RECTAL 02/20/17 11:00 (Colace) 100 mg Q12HR PO 02/20/17 11:00 02/21/17 21:01 (Heparin Inj) 5,000 units Q8H SQ 02/20/17 12:00 02/22/17 12:12 (Narcan Inj) 0.4 mg UNSCH PRN IV 02/20/17 11:00 (Morphine Inj) 2 mg Q3H PRN IV PUSH 02/20/17 11:00 02/22/17 09:32 (Mucinex Er) 600 mg BID PO 02/20/17 21:00 02/22/17 09:34 (Habitrol 14 Mg Patch.24 Hr) 1 patch DAILY T-DERMAL 02/20/17 12:00 02/22/17 09:34 Miscellaneous Information 1 DAILY T-DERMAL 02/20/17 12:00 02/22/17 09:00 (Pepcid Inj) 20 mg Q12H IV PUSH 02/20/17 12:00 02/22/17 12:12 ([place] 5-325 Mg) 1 tab Q4H PRN PO 02/20/17 18:30 02/22/17 12:13 (Levaquin) 500 mg DAILY PO 02/22/17 09:00 02/22/17 09:34 Family History unremarkable Social History 50 pack year smoking history admits to marijuana use 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 Physical Exam Vital Signs Vital Signs Date Time Temp Pulse Resp B/P Pulse Ox O2 Delivery O2 Flow Rate FiO2 02/22/17 12:42 99 Nasal Cannula 3.00 02/22/17 11:16 98.5 78 20 122/78 94 02/22/17 11:00 97 02/22/17 10:00 86 02/22/17 09:37 16 02/22/17 09:00 99 02/22/17 08:51 16 02/22/17 08:00 98.6 78 20 116/75 94 02/22/17 08:00 79 02/22/17 07:27 87 02/22/17 05:01 76 02/22/17 04:40 74 02/22/17 04:00 98.2 84 20 130/87 94 02/22/17 03:09 67 02/22/17 02:00 82 02/22/17 01:00 88 02/22/17 00:00 90 02/22/17 00:00 98.2 69 20 122/77 94 02/21/17 23:00 72 02/21/17 22:00 78 02/21/17 21:00 106 02/21/17 20:32 93 Nasal Cannula 2.00 02/21/17 20:00 98.0 95 20 128/81 93 02/21/17 20:00 86 02/21/17 19:00 100 02/21/17 18:01 120 02/21/17 17:01 86 02/21/17 16:00 84 02/21/17 15:01 97.4 85 18 112/72 97 02/21/17 15:00 70 02/21/17 14:01 75 02/21/17 13:00 78 Physical Exam GENERAL: This is a well-nourished, well-developed patient, in no apparent distress. SKIN: No rashes, ecchymoses or lesions. Cool and dry. HEAD: Atraumatic. Normocephalic. No temporal or scalp tenderness. EYES: Pupils equal round and reactive. Extraocular motions intact. No scleral icterus. No injection or drainage. ENT: Nose without bleeding, purulent drainage or septal hematoma. Throat without erythema, tonsillar hypertrophy or exudate. Uvula midline. Airway patent. NECK: Trachea midline. No JVD or lymphadenopathy. Supple, nontender, no meningeal signs. CARDIOVASCULAR: Regular rate and rhythm without murmurs, gallops, or rubs. RESPIRATORY: bilateral expiratory wheezes with subcutaneous emphysema over his chest wall R>L GASTROINTESTINAL: Abdomen soft, non-tender, nondistended. No hepato-splenomegaly , or palpable masses. No guarding. MUSCULOSKELETAL: Extremities without clubbing, cyanosis, or edema. No joint tenderness, effusion, or edema noted. No calf tenderness. Negative Homans sign bilaterally. NEUROLOGICAL: Awake and alert. Cranial nerves II through XII intact. Motor and sensory grossly within normal limits. Five out of 5 muscle strength in all muscle groups. Normal speech. Result Diagram: 02/21/1762102/21/17621 Imaging Last Impressions Chest X-Ray 02/22/17599 Signed Impressions: Service Date/Time: Wednesday, February 22, 2017 04:19 - CONCLUSION: 1. It appears that the previously noted small right apical pneumothorax has resolved. 2. Chest tube repositioned into right apical area. 3. Subcutaneous emphysema along the right chest wall. Sonido Valladares MD Course Patient was admitted with a right chest tube and a small air leak. Assessment and Plan Problem List: (1) Pneumothorax, right Status: Acute (2) COPD (chronic obstructive pulmonary disease) Status: Acute Assessment and Plan Continue chest tube to 30 cm suction. He continues to have a small air leak, but this will likely resolve. Operative intervention is relatively high-risk in this situation, but he may require a second chest tube if there is no improvement over the next few days. Discussed Condition With patient Problem Qualifiers (1) COPD (chronic obstructive pulmonary disease): Qualified Code: J44.1 - Chronic obstructive pulmonary disease with acute exacerbation Raisa Villanueva MD February 22, 2017 13:00
--- NOTE | 2017-02-22 14:38 | HHI.PR ---
Subjective Remarks Had some Subcutaneous Emphysema on the right. Chest tube is leaking less. Resolved Right Pneumothorax on CXR. Objective Vital Signs Date Time Temp Pulse Resp B/P Pulse Ox O2 Delivery O2 Flow Rate FiO2 02/22/17 14:00 86 02/22/17 13:00 85 02/22/17 12:42 99 Nasal Cannula 3.00 02/22/17 12:00 83 02/22/17 11:16 98.5 78 20 122/78 94 02/22/17 11:00 97 02/22/17 10:00 86 02/22/17 09:37 16 02/22/17 09:00 99 02/22/17 08:51 16 02/22/17 08:00 98.6 78 20 116/75 94 02/22/17 08:00 79 02/22/17 07:27 87 02/22/17 05:01 76 02/22/17 04:40 74 02/22/17 04:00 98.2 84 20 130/87 94 02/22/17 03:09 67 02/22/17 02:00 82 02/22/17 01:00 88 02/22/17 00:00 90 02/22/17 00:00 98.2 69 20 122/77 94 02/21/17 23:00 72 02/21/17 22:00 78 02/21/17 21:00 106 02/21/17 20:32 93 Nasal Cannula 2.00 02/21/17 20:00 98.0 95 20 128/81 93 02/21/17 20:00 86 02/21/17 19:00 100 02/21/17 18:01 120 02/21/17 17:01 86 02/21/17 16:00 84 02/21/17 15:01 97.4 85 18 112/72 97 02/21/17 15:00 70 I/O 02/21/17 02/21/17 02/21/17 02/22/17 02/22/17 02/22/17 07:00 15:00 23:00 07:00 15:00 23:00 Intake Total 2216 ml 3621 ml 1476 ml Output Total 1025 ml 1177 ml 610 ml Balance 1191 ml 2444 ml 866 ml Intake Oral 480 ml 720 ml 480 ml IV Total 1736 ml 2901 ml 996 ml Output Urine Total 1025 ml 1175 ml 600 ml Chest Tube Drainage Total 0 ml 10 ml Drainage Total 2 ml # Voids 6 # Bowel Movements 1 Result Diagram: 02/21/1762102/21/17621 Procedures Right Chest tube placement Objective Remarks GENERAL: This is a thinly built middle-aged white male who is alert and not dyspneic at rest. HEENT: Head normocephalic. Pupils reactive. Tongue is moist. Throat is clear. Nasal mucosa injected. NECK: Supple. No bruits, no thyroid enlargement or lymphadenopathy. CHEST: Increased AP diameter with diminished breath sounds at the periphery. There is a chest tube in place in the right chest and wheezes scattered. Has Sub Cutaneous emphysema of chest wall. bilaterally, prolonged expirations. HEART: The heart sounds are regular S1 and S2. No murmur. ABDOMEN: Soft, benign. No mass, no organomegaly. EXTREMITIES: No edema. Normal reflexes. NEUROLOGIC: No gross motor deficits. Cranial nerves are grossly intact. RECTAL: Exam is deferred. SKIN: Dry and cool. Assessment and Plan Assessment and Plan IMPRESSION 1. Spontaneous right pneumothorax, resolving. 2. Severe emphysema with chronic bronchitis 3. 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 Sub Q Emphysema Plan : 1. Rpt Chest X aysha in am. 2. Chest tube to wall suction 30 Cm. 3. Nebs qid , duoneb. 4. CBC in am 5. Levaquin 500 mg IV q24h. 6. Prednisone 20 mg daily Jesus Harvey MD February 22, 2017 14:38
[2017-02-22] MEDS: SODIUM CHLOR 0.9% 1000 ML INJ 1,000 ML IV SCH (20:47)
[2017-02-23] VITALS (31 sets, daily range): BP systolic 115–145; BP diastolic 82–99; PULSE 78–126; RESP 18–20; TEMP 97.8–98.6; O2SAT 92–97
--- NOTE | 2017-02-23 02:31 | RADRPT ---
EXAM DATE/TIME: 02/23/2017 02:10 [facility] COMPARISON: CHEST SINGLE AP, February 22, 2017, 4:19. INDICATIONS : Chest tube removal possible pneumothorax. MEDICAL HISTORY : Chronic obstructive pulmonary disease. Congestive heart failure. SURGICAL HISTORY : None. ENCOUNTER: Subsequent ACUITY: 4 - 6 days PAIN SCORE: 0/10 LOCATION: Bilateral chest FINDINGS: The small right-sided chest tube has been removed. There is a moderate right pneumothorax with 4.4 cm of separation. There is subcutaneous emphysema throughout the chest wall. No mediastinal shift is se en at this time. The heart size is stable. There are no pleural effusions. The findings were immediately called by telephone to the nurse taking care of this patient. CONCLUSION: Status post removal of a right-sided chest tube with a moderate right pneumothorax. Sonido Valladares MD on February 23, 2017 at 2:25 Board Certified Radiologist. This report was verified electronically.
--- NOTE | 2017-02-23 03:20 | HHI.PR ---
Blank section for building S: Patient accidentally removed own chest tube 0139 O: stat chest X ray reveals moderate 4.4 cm right pneumothorax Patient with tachycardia decreased breath sounds R side with subcutaneous emphysema right side of chest and RUE A/P: moderated right sided pneumothorax Vaseline gauze placed to chest tube site and STAT CXR ordered Dr. Villanueva CV surgery contacted and decline chest tube placement at this time suggested IR consult IR teacher vocational training Dr. Warren contacted also declined chest tube placement at this time Dr. Mcmullen general medical practitioner called and consult placed to general medical practitioner- Dr. Mcmullen placed chest tube, patient tolerated well chest tube to 20cm suctions post chest placement X ray ordered Discussed with patient, nursing and Marsha Quiroga February 23, 2017 03:20
--- NOTE | 2017-02-23 04:00 | PD.PROCEDR ---
Procedure Note Procedure Chest tube placement Indication: Moderate size pneumothorax A time-out was completed verifying correct patient, procedure, site, positioning , and special equipment if applicable. The patients right side was prepped and draped in a sterile manner after the appropriate infiltration level was confirmed. 1% lidocaine was used anesthetize the surrounding skin. A finder needle was then used to locate an air. A 10-blade scalpel used to make the incision. The 10F pigtail catheter was then threaded without difficulty. The chest tube was connected to low wall suction. A post-procedure chest x-ray was ordered . Estimated Blood Loss: 0ml The patient tolerated the procedure well and there were no complications. CXR to follow Sebas Mcmullen MD February 23, 2017 03:59
--- NOTE | 2017-02-23 04:03 | PD.CONS ---
HPI Service Critical Care Medicine Consult Requested By Primary Care Physician No Primary Care Physician History of Present Illness Critical care was emergently consulted for placement of right-sided chest tube for moderate-sized pneumothorax. Review of Systems Constitutional: DENIES: Diaphoretic episodes, Fatigue, Fever, Weight gain, Weight loss, Chills, Dizziness, Change in appetite, Night Sweats Endocrine: DENIES: Heat/cold intolerance, Polydipsia, Polyuria, Polyphagia Eyes: DENIES: Blurred vision, Diplopia, Eye inflammation, Eye pain, Vision loss , Photosensitivity, Double Vision Ears, nose, mouth, throat: DENIES: Tinnitus, Hearing loss, Vertigo, Nasal discharge, Oral lesions, Throat pain, Hoarseness, Ear Pain, Running Nose, Epistaxis, Sinus Pain, Toothache, Odynophagia Respiratory: COMPLAINS OF: Shortness of breath, DENIES: Apneas, Cough, Snoring , Wheezing, Hemoptysis, Sputum production Cardiovascular: COMPLAINS OF: Dyspnea on Exertion, DENIES: Chest pain, Palpitations, Syncope, PND, Lower Extremity Edema, Orthopnea, Claudication Gastrointestinal: DENIES: Abdominal pain, Black stools, Bloody stools, Constipation, Diarrhea, Nausea, Vomiting, Difficulty Swallowing, Anorexia Genitourinary: DENIES: Sexual dysfunction, Urinary frequency, Urinary incontinence, Urgency, Hematuria, Dysuria, Nocturia, Penile Discharge, Testicular Pain, Testicular Swelling Musculoskeletal: DENIES: Joint pain, Muscle aches, Stiffness, Joint Swelling, Back pain, Neck pain Integumentary: DENIES: Abnormal pigmentation, Nail changes, Pruritus, Rash Hematologic/lymphatic: DENIES: Bruising, Lymphadenopathy Immunologic/allergic: DENIES: Eczema, Urticaria Neurologic: DENIES: Abnormal gait, Headache, Localized weakness, Paresthesias, Seizures, Speech Problems, Tremor, Poor Balance Psychiatric: DENIES: Anxiety, Confusion, Mood changes, Depression, Hallucinations, Agitation, Suicidal Ideation, Homicidal Ideation, Delusions Past Family Social History Allergies: Coded Allergies: No Known Allergies (Unverified , 02/20/17) Past Medical History COPD/Emphysema Past Surgical History Left Upper lobe resection Active Ordered Medications Current Medications Medications (Trade) Dose Ordered Sig/Pawel Route PRN Reason Start Time Stop Time Status Last Admin Dose Admin Sodium Chloride (NS 1000 ml Inj) 1,000 ml @ 83 mls/hr Q12H3M IV 02/20/17 11:00 02/22/17 20:47 Sodium Chloride (NS Flush) 2 ml UNSCH PRN IV FLUSH FLUSH AFTER USING IV ACCESS 02/20/17 11:00 Sodium Chloride (NS Flush) 2 ml BID IV FLUSH 02/20/17 21:00 02/22/17 20:48 Acetaminophen (Tylenol) 650 mg Q4H PRN PO TEMP > 100.4 02/20/17 11:00 Ondansetron HCl (Zofran Inj) 4 mg Q6H PRN IVP NAUSEA OR VOMITING 02/20/17 11:00 Bisacodyl (Dulcolax Supp) 10 mg DAILY PRN RECTAL CONSTIPATION 02/20/17 11:00 Docusate Sodium (Colace) 100 mg Q12HR PO 02/20/17 11:00 02/22/17 20:46 Heparin Sodium (Porcine) (Heparin Inj) 5,000 units Q8H SQ 02/20/17 12:00 02/22/17 20:48 Naloxone HCl (Narcan Inj) 0.4 mg UNSCH PRN IV SEE LABEL COMMENTS 02/20/17 11:00 Morphine Sulfate (Morphine Inj) 2 mg Q3H PRN IV PUSH PAIN SCALE 6 TO 10 02/20/17 11:00 02/22/17 20:47 Guaifenesin (Mucinex Er) 600 mg BID PO 02/20/17 21:00 02/22/17 20:46 Nicotine (Habitrol 14 Mg Patch.24 Hr) 1 patch DAILY T-DERMAL 02/20/17 12:00 02/22/17 09:34 Miscellaneous Information 1 DAILY T-DERMAL 02/20/17 12:00 02/22/17 09:00 Famotidine (Pepcid Inj) 20 mg Q12H IV PUSH 02/20/17 12:00 02/22/17 23:42 Acetaminophen/ Hydrocodone Bitart ([place] 5-325 Mg) 1 tab Q4H PRN PO PAIN SCALE 1 TO 5 02/20/17 18:30 02/22/17 22:21 Levofloxacin (Levaquin) 500 mg DAILY PO 02/22/17 09:00 02/22/17 09:34 Family History Noncontributory Physical Exam Vital Signs Vital Signs Date Time Temp Pulse Resp B/P Pulse Ox O2 Delivery O2 Flow Rate FiO2 02/23/17 03:10 96 Non-Rebreather 02/22/17 19:03 98 Nasal Cannula 4.00 02/22/17 18:00 87 02/22/17 17:18 18 02/22/17 17:00 99 02/22/17 16:00 91 02/22/17 15:25 98.4 78 20 114/76 94 02/22/17 15:00 87 02/22/17 14:00 86 02/22/17 13:00 85 02/22/17 12:42 99 Nasal Cannula 3.00 02/22/17 12:00 83 02/22/17 11:16 98.5 78 20 122/78 94 02/22/17 11:00 97 02/22/17 10:00 86 02/22/17 09:37 16 02/22/17 09:00 99 02/22/17 08:00 98.6 78 20 116/75 94 02/22/17 08:00 79 02/22/17 07:27 87 02/22/17 05:01 76 02/22/17 04:40 74 Physical Exam GENERAL: Well-nourished, well-developed patient. On 100% facemask nonrebreather SKIN: Warm and dry. HEAD: Normocephalic. EYES: No scleral icterus. No injection or drainage. NECK: Supple, trachea midline. No JVD or lymphadenopathy. CARDIOVASCULAR: Regular rate and rhythm without murmurs, gallops, or rubs. RESPIRATORY: Breath sounds equal bilaterally. No accessory muscle use. GASTROINTESTINAL: Abdomen soft, non-tender, nondistended. MUSCULOSKELETAL: No cyanosis, or edema. BACK: Nontender without obvious deformity. No CVA tenderness. EXTREMITIES: No clubbing cyanosis or edema Result Diagram: 02/21/1762102/21/17621 Imaging Last 24 hours Impressions Chest X-Ray 02/22/17 06 Signed Impressions: Service Date/Time: Wednesday, February 22, 2017 04:19 - CONCLUSION: 1. It appears that the previously noted small right apical pneumothorax has resolved. 2. Chest tube repositioned into right apical area. 3. Subcutaneous emphysema along the right chest wall. Sonido Valladares MD Assessment and Plan Assessment and Plan Pneumothorax - Chest tube placement - Patient is followed by marketing executive - Further management per above Sebas Mcmullen MD February 23, 2017 04:03
--- NOTE | 2017-02-23 04:38 | RADRPT ---
EXAM DATE/TIME: 02/23/2017 04:12 [facility] COMPARISON: CHEST SINGLE AP, February 23, 2017, 2:10. INDICATIONS : Post chest tube placement. MEDICAL HISTORY : Chronic obstructive pulmonary disease. Congestive heart failure. SURGICAL HISTORY : None. ENCOUNTER: Subsequent ACUITY: 4 - 6 days PAIN SCORE: Non-responsive. LOCATION: Right chest FINDINGS: A small right-sided chest tube has been reinserted. The previously noted right pneumothorax has essen tially resolved. There is an infiltrate in the right lung base. Left lung is grossly clear. There is extensive subcutaneous emphysema throughout the chest wall. CONCLUSION: 1. Right-sided chest tube reinserted. 2. Previously noted right pneumothorax has resolved. 3. Right lower lung infiltrate. Sonido Valladares MD on February 23, 2017 at 4:35 Board Certified Radiologist. This report was verified electronically.
[2017-02-23] MEDS: HEPARIN SODIUM - SQ 10,000 UNITS/ML VIAL SQ SCH ×3 (04:43→19:46)
[2017-02-23] MEDS: SODIUM CHLOR 0.9% 1000 ML INJ 1,000 ML IV SCH ×2 (05:29→17:32)
[2017-02-23] MEDS: ACETAMINOPHEN/HYDROcodone 325 MG/5 MG TAB PO PRN ×4 (06:14→19:47)
[2017-02-23] MEDS: RESP: ALBUTEROL 2.5 MG/IPRATROPIUM 0.5 MG NEB (SCH) NEB ×3 (07:49→19:57)
--- NOTE | 2017-02-23 07:55 | HHI.PR ---
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 02/22: Stable in his bedroom discussed with nurse Miss Root, minimal drainage for probable Chest tube removal if indicated by it infrastructure specialist, his subcutaneous Emphysema is increased now has it in his right arm his back to the lumbar area and anterior chest area, no Nausea, vomit or diarrhea. 02/23: Patient accidentally removed his chest tube this morning was placed again by sharepoint specialist, also had new evaluation by sharepoint specialist this afternoon for new clot in his Chest tube, no nausea, vomit or diarrhea, resolving his pneumothorax. will have new CXR in am tomorrow Objective Vital Signs Date Time Temp Pulse Resp B/P Pulse Ox O2 Delivery O2 Flow Rate FiO2 02/23/17 07:48 96 Nasal Cannula 2.50 02/23/17 06:00 126 02/23/17 05:00 100 02/23/17 04:50 95 Nasal Cannula 3.00 02/23/17 04:50 98.2 92 20 139/99 94 02/23/17 04:00 118 02/23/17 04:00 Nasal Cannula 3.00 02/23/17 03:10 96 Non-Rebreather 02/23/17 03:00 94 02/23/17 02:00 116 02/23/17 01:30 Non-Rebreather 10.00 02/23/17 01:00 94 02/23/17 00:00 98.6 78 20 144/95 94 02/23/17 00:00 98 02/22/17 23:40 20 02/22/17 23:00 84 02/22/17 22:00 86 02/22/17 21:00 20 02/22/17 21:00 98 02/22/17 20:00 90 02/22/17 19:40 Nasal Cannula 3.00 02/22/17 19:40 98.6 80 20 140/90 94 02/22/17 19:03 98 Nasal Cannula 4.00 02/22/17 19:00 80 02/22/17 18:00 87 02/22/17 17:00 99 02/22/17 16:00 91 02/22/17 15:25 98.4 78 20 114/76 94 02/22/17 15:00 87 02/22/17 14:00 86 02/22/17 13:00 85 02/22/17 12:42 99 Nasal Cannula 3.00 02/22/17 12:00 83 02/22/17 11:16 98.5 78 20 122/78 94 02/22/17 11:00 97 02/22/17 10:00 86 02/22/17 09:00 99 02/22/17 08:00 98.6 78 20 116/75 94 02/22/17 08:00 79 I/O 02/22/17 02/22/17 02/22/17 02/23/17 02/23/17 02/23/17 07:00 15:00 23:00 07:00 15:00 23:00 Intake Total 1476 ml 1722 ml 720 ml Output Total 610 ml 1290 ml 2000 ml Balance 866 ml 432 ml -1280 ml Intake Oral 480 ml 760 ml 720 ml IV Total 996 ml 962 ml Output Urine Total 600 ml 1290 ml 2000 ml Chest Tube Drainage Total 10 ml 0 ml # Bowel Movements 0 Result Diagram: 02/21/17 0622 02/21/17 0622 Imaging Last Impressions Chest X-Ray 02/23/17 0000 Signed Impressions: Service Date/Time: Thursday, February 23, 2017 04:12 - CONCLUSION: 1. Right-sided chest tube reinserted. 2. Previously noted right pneumothorax has resolved. 3. Right lower lung infiltrate. Sonido Valladares MD Procedures Right Chest tube placement Other Results Laboratory Tests Test 02/20/17 02/20/17 02/20/17 02/21/17 09:10 15:40 16:22 06:22 Prothrombin Time 11.1 SEC Prothromb Time International 1.0 RATIO Ratio Activated Partial 25.0 SEC Thromboplast Time Magnesium Level 2.3 MG/DL Total Bilirubin 0.6 MG/DL Aspartate Amino Transf 33 U/L (AST/SGOT) Alanine Aminotransferase 26 U/L (ALT/SGPT) Alkaline Phosphatase 87 U/L Creatine Kinase MB 5.7 NG/ML B-Type Natriuretic Peptide 40 PG/ML Total Protein 7.5 GM/DL Albumin 4.0 GM/DL Urine Color YELLOW Urine Turbidity CLEAR Urine pH 5.5 Urine Specific [place] 1.023 Urine Protein 30 mg/dL Urine Glucose (UA) 300 mg/dL Urine Ketones 80 mg/dL Urine Occult Blood TRACE Urine Nitrite NEG Urine Bilirubin NEG Urine Urobilinogen LESS THAN 2.0 MG/DL Urine Leukocyte Esterase NEG Urine RBC LESS THAN 1 /hpf Urine WBC 2 /hpf Urine Squamous Epithelial <1 /hpf Cells Urine Hyaline Casts 3 /lpf Urine Mucus FEW /lpf Microscopic Urinalysis Comment CULT NOT INDICATED Hemoglobin A1c 5.8 % Total Creatine Kinase 168 U/L Troponin I 1.81 NG/ML Triglycerides Level 50 MG/DL Cholesterol Level 181 MG/DL LDL Cholesterol 103 MG/DL HDL Cholesterol 68.0 MG/DL Cholesterol/HDL Ratio 2.66 RATIO Free Thyroxine 1.18 NG/DL Thyroid Stimulating Hormone 0.286 uIU/ML 3rd Gen White Blood Count 13.1 TH/MM3 Red Blood Count 4.36 MIL/MM3 Hemoglobin 12.1 GM/DL Hematocrit 37.6 % Mean Corpuscular Volume 86.1 FL Mean Corpuscular Hemoglobin 27.7 PG Mean Corpuscular Hemoglobin 32.2 % Concent Red Cell Distribution Width 14.9 % Platelet Count 224 TH/MM3 Mean Platelet Volume 8.1 FL Neutrophils (%) (Auto) 77.1 % Lymphocytes (%) (Auto) 11.1 % Monocytes (%) (Auto) 11.6 % Eosinophils (%) (Auto) 0.1 % Basophils (%) (Auto) 0.1 % Neutrophils # (Auto) 10.1 TH/MM3 Lymphocytes # (Auto) 1.5 TH/MM3 Monocytes # (Auto) 1.5 TH/MM3 Eosinophils # (Auto) 0.0 TH/MM3 Basophils # (Auto) 0.0 TH/MM3 CBC Comment DIFF FINAL Differential Comment Sodium Level 142 MEQ/L Potassium Level 4.1 MEQ/L Chloride Level 108 MEQ/L Carbon Dioxide Level 25.9 MEQ/L Anion Gap 8 MEQ/L Blood Urea Nitrogen 14 MG/DL Creatinine 0.72 MG/DL Estimat Glomerular Filtration 110 ML/MIN Rate Random Glucose 114 MG/DL Calcium Level 8.5 MG/DL Objective Remarks GENERAL: No acute distress. SKIN: No rashes, ecchymoses or lesions. Cool and dry. HEAD: Atraumatic. Normocephalic. No temporal or scalp tenderness. EYES: Pupils equal round and reactive. Extraocular motions intact. No scleral icterus. No injection or drainage. ENT: Nose without bleeding. NECK: Trachea midline. No JVD or lymphadenopathy. Supple, nontender, no meningeal signs. CARDIOVASCULAR: Regular rate and rhythm without murmurs, gallops, or rubs. RESPIRATORY: Decreased breath sounds bilateral, Right chest tube in place, Subcutaneous Emphysema improving. GASTROINTESTINAL: Abdomen soft, non-tender, nondistended. No hepato-splenomegaly , or palpable masses. No guarding. MUSCULOSKELETAL: Extremities without clubbing, cyanosis, or edema. NEUROLOGICAL: Awake and alert. No focal deficits. Medications and IVs Current Medications Medications (Trade) Dose Ordered Sig/Pawel Route Start Time Stop Time Status Last Admin (NS 1000 ml Inj) 1,000 ml @ 83 mls/hr Q12H3M IV 02/20/17 11:00 02/22/17 20:47 (NS Flush) 2 ml UNSCH PRN IV FLUSH 02/20/17 11:00 (NS Flush) 2 ml BID IV FLUSH 02/20/17 21:00 02/22/17 20:48 (Tylenol) 650 mg Q4H PRN PO 02/20/17 11:00 (Zofran Inj) 4 mg Q6H PRN IVP 02/20/17 11:00 (Dulcolax Supp) 10 mg DAILY PRN RECTAL 02/20/17 11:00 (Colace) 100 mg Q12HR PO 02/20/17 11:00 02/22/17 20:46 (Heparin Inj) 5,000 units Q8H SQ 02/20/17 12:00 02/23/17 04:43 (Narcan Inj) 0.4 mg UNSCH PRN IV 02/20/17 11:00 (Morphine Inj) 2 mg Q3H PRN IV PUSH 02/20/17 11:00 02/22/17 20:47 (Mucinex Er) 600 mg BID PO 02/20/17 21:00 02/22/17 20:46 (Habitrol 14 Mg Patch.24 Hr) 1 patch DAILY T-DERMAL 02/20/17 12:00 02/22/17 09:34 Miscellaneous Information 1 DAILY T-DERMAL 02/20/17 12:00 02/22/17 09:00 (Pepcid Inj) 20 mg Q12H IV PUSH 02/20/17 12:00 02/22/17 23:42 ([place] 5-325 Mg) 1 tab Q4H PRN PO 02/20/17 18:30 02/23/17 06:14 (Levaquin) 500 mg DAILY PO 02/22/17 09:00 02/22/17 09:34 A/P Problem List: (1) Pneumothorax, right ICD Code: J93.9 (2) COPD (chronic obstructive pulmonary disease) ICD Code: J44.9 (3) S/P chest tube placement ICD Code: Z93.8 Assessment and Plan 1. Acute Pneumothorax probably related to Severe COPD/Emphysema status post Right Chest tube placement, continue Oxygen, Cardiac Monitoring, it infrastructure specialist following, Bronchodilator, Mucolytic and Incentive spirometry. added Levaquin by mouth today. Improving subcutaneous Emphysema, improving Pneumothorax. will have new CXR in am tomorrow. Prednisone. 2. COPD/Emphysema Mild expiratory wheezing, continue on Steroids by it infrastructure specialist. 3. Tobacco dependence strongly recommended to stop smoking 4. Status post Left upper Lobe resection no clear diagnosis, followed by it infrastructure specialist Doctor Bert Hampton in [place] at [facility]. 5. Mild Leukocytosis worsening probable secondary to #1 started on Levaquin by it infrastructure specialist. 6. Mild Troponin elevation now trending down, probable related to #1. DVT prophylaxis with Heparin Gastric protection with Pepcid. Code Status Full Code. Discussed Condition With Patient and Nurse [facility] Discharge Planning Expected by tomorrow. Problem Qualifiers (1) COPD (chronic obstructive pulmonary disease): Qualified Code: J44.1 - Chronic obstructive pulmonary disease with acute exacerbation Tanvir Paz MD February 23, 2017 07:55
[2017-02-23] MEDS: LEVOFLOXACIN 500 MG TAB PO SCH (08:11)
[2017-02-23] MEDS: guaiFENesin E.R. 600 MG TAB PO SCH ×2 (08:11→19:47)
[2017-02-23] MEDS: DOCUSATE SODIUM 100 MG CAP PO SCH ×2 (08:11→19:48)
[2017-02-23] MEDS: NICOTINE 14 MG/24 HR PATCH T-DERMAL SCH (08:12)
[2017-02-23] MEDS: SODIUM CHLORIDE 0.9% FLUSH 10 ML FLUSH IV FLUSH SCH ×2 (08:26→19:48)
[2017-02-23] MEDS: MORPHINE SULFATE 4 MG/ML INJ IV PUSH PRN ×5 (08:26→23:12)
[2017-02-23] MEDS: REMOVE OLD PATCH T-DERMAL SCH (09:00)
--- NOTE | 2017-02-23 09:23 | PD.CAR.PN ---
CVT Progress Note Subjective/Hospital Course: 02/23/17 Chest catheter "fell out" last night leading to recurrence of pneumothorax. Catheter replaced with resolution of pneumothorax. He has a small air leak this morning. Objective: Vital Signs Date Time Temp Pulse Resp B/P Pulse Ox O2 Delivery O2 Flow Rate FiO2 02/23/17 07:48 96 Nasal Cannula 2.50 02/23/17 06:00 126 02/23/17 05:00 100 02/23/17 04:50 95 Nasal Cannula 3.00 02/23/17 04:50 98.2 92 20 139/99 94 02/23/17 04:00 118 02/23/17 04:00 Nasal Cannula 3.00 02/23/17 03:10 96 Non-Rebreather 02/23/17 03:00 94 02/23/17 02:00 116 02/23/17 01:30 Non-Rebreather 10.00 02/23/17 01:00 94 02/23/17 00:00 98.6 78 20 144/95 94 02/23/17 00:00 98 02/22/17 23:40 20 02/22/17 23:00 84 02/22/17 22:00 86 02/22/17 21:00 20 02/22/17 21:00 98 02/22/17 20:00 90 02/22/17 19:40 Nasal Cannula 3.00 02/22/17 19:40 98.6 80 20 140/90 94 02/22/17 19:03 98 Nasal Cannula 4.00 02/22/17 19:00 80 02/22/17 18:00 87 02/22/17 17:00 99 02/22/17 16:00 91 02/22/17 15:25 98.4 78 20 114/76 94 02/22/17 15:00 87 02/22/17 14:00 86 02/22/17 13:00 85 02/22/17 12:42 99 Nasal Cannula 3.00 02/22/17 12:00 83 02/22/17 11:16 98.5 78 20 122/78 94 02/22/17 11:00 97 02/22/17 10:00 86 Result Diagram: 02/21/1762102/21/17621 Imaging: Last 24 hours Impressions Chest X-Ray 02/23/17 0000 Signed Impressions: Service Date/Time: Thursday, February 23, 2017 04:12 - CONCLUSION: 1. Right-sided chest tube reinserted. 2. Previously noted right pneumothorax has resolved. 3. Right lower lung infiltrate. Sonido Valladares MD Chest X-Ray 02/23/17 0000 Signed Impressions: Service Date/Time: Thursday, February 23, 2017 02:10 - CONCLUSION: Status post removal of a right-sided chest tube with a moderate right pneumothorax. Sonido Valladares MD Cardiovascular: RRR Telemetry: NSR Pulmonary: CTA CT: minimal output, small air leak Plan: Continue chest catheter to suction. Small air leak should resolve Raisa Villanueva MD February 23, 2017 09:23
[2017-02-23] MEDS: FAMOTIDINE 20 MG/2 ML VIAL IV PUSH SCH ×2 (11:48→23:12)
--- NOTE | 2017-02-23 14:14 | HHI.PR ---
Subjective Remarks Had more Subcutaneous Emphysema on the right. Chest tube fell out and now has a new one. Resolved Right Pneumothorax on CXR. Objective Vital Signs Date Time Temp Pulse Resp B/P Pulse Ox O2 Delivery O2 Flow Rate FiO2 02/23/17 13:22 98 02/23/17 12:13 90 02/23/17 11:00 86 02/23/17 11:00 97.9 94 18 115/82 94 02/23/17 10:09 102 02/23/17 09:00 102 02/23/17 08:00 98 02/23/17 07:48 96 Nasal Cannula 2.50 02/23/17 07:00 98.6 86 18 145/90 97 02/23/17 07:00 88 02/23/17 07:00 95 Nasal Cannula 3.00 02/23/17 06:00 126 02/23/17 05:00 100 02/23/17 04:50 95 Nasal Cannula 3.00 02/23/17 04:50 98.2 92 20 139/99 94 02/23/17 04:00 118 02/23/17 04:00 Nasal Cannula 3.00 02/23/17 03:10 96 Non-Rebreather 02/23/17 03:00 94 02/23/17 02:00 116 02/23/17 01:30 Non-Rebreather 10.00 02/23/17 01:00 94 02/23/17 00:00 98.6 78 20 144/95 94 02/23/17 00:00 98 02/22/17 23:40 20 02/22/17 23:00 84 02/22/17 22:00 86 02/22/17 21:00 20 02/22/17 21:00 98 02/22/17 20:00 90 02/22/17 19:40 Nasal Cannula 3.00 02/22/17 19:40 98.6 80 20 140/90 94 02/22/17 19:03 98 Nasal Cannula 4.00 02/22/17 19:00 80 02/22/17 18:00 87 02/22/17 17:00 99 02/22/17 16:00 91 02/22/17 15:25 98.4 78 20 114/76 94 02/22/17 15:00 87 I/O 5/13/17 5/13/02/22/17 02/23/17 02/23/17 02/23/17 07:00 15:00 23:00 07:00 15:00 23:00 Intake Total 1476 ml 1722 ml 720 ml Output Total 610 ml 1290 ml 2000 ml Balance 866 ml 432 ml -1280 ml Intake Oral 480 ml 760 ml 720 ml IV Total 996 ml 962 ml Output Urine Total 600 ml 1290 ml 2000 ml Chest Tube Drainage Total 10 ml 0 ml # Bowel Movements 0 Result Diagram: 02/21/1762102/21/17621 Procedures Right Chest tube placement Objective Remarks GENERAL: This is a thinly built middle-aged white male who is alert and dyspneic at rest. HEENT: Head normocephalic. Pupils reactive. Tongue is moist. Throat is clear. Nasal mucosa injected. NECK: Supple. No bruits, no thyroid enlargement or lymphadenopathy. CHEST: Increased AP diameter with diminished breath sounds at the periphery. There is a chest tube in place in the right chest and wheezes scattered. Has Sub Cutaneous emphysema of chest wall. bilaterally, prolonged expirations. HEART: The heart sounds are regular S1 and S2. No murmur. ABDOMEN: Soft, benign. No mass, no organomegaly. EXTREMITIES: No edema. Normal reflexes. NEUROLOGIC: No gross motor deficits. Cranial nerves are grossly intact. RECTAL: Exam is deferred. SKIN: Dry and cool. Assessment and Plan Assessment and Plan IMPRESSION 1. Spontaneous right pneumothorax, resolving. 2. Severe emphysema with chronic bronchitis 3. 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 Sub Q Emphysema Plan : 1. Rpt Chest X aysha in am. 2. Chest tube to wall suction 30 Cm. 3. Nebs qid , duoneb. 4. IS at bedside qid 5. Levaquin 500 mg po q24h. 6. Prednisone 20 mg daily Jesus Harvey MD February 23, 2017 14:14
--- NOTE | 2017-02-23 14:56 | RADRPT ---
EXAM DATE/TIME: 02/23/2017 14:39 [place] COMPARISON: CHEST SINGLE AP, February 23, 2017, 4:12. INDICATIONS : Shortness of breath. MEDICAL HISTORY : Chronic obstructive pulmonary disease. Congestive heart failure. SURGICAL HISTORY : None. ENCOUNTER: Subsequent ACUITY: 2 days PAIN SCORE: 5/10 LOCATION: Bilateral chest FINDINGS: A single view of the chest demonstrates the lungs to be hyperaerated without evidence of mass, infilt rate or effusion. Extensive bilateral subcutaneous emphysema. Right-sided chest tube noted without p neumothorax. The cardiomediastinal contours are unremarkable. Small effusion on the left. Osseous str uctures are intact. CONCLUSION: 1. Right-sided chest tube without pneumothorax. 2. Extensive bilateral subcutaneous emphysema. 3. Suspected small left pleural effusion. Alber Gibson MD on February 23, 2017 at 14:53 Board Certified Radiologist. This report was verified electronically.
[2017-02-24] VITALS (28 sets, daily range): BP systolic 125–136; BP diastolic 72–94; PULSE 76–115; RESP 17–20; TEMP 97.6–98.3; O2SAT 93–99
[2017-02-24] MEDS: ACETAMINOPHEN/HYDROcodone 325 MG/5 MG TAB PO PRN ×5 (00:35→22:25)
[2017-02-24] MEDS: HEPARIN SODIUM - SQ 10,000 UNITS/ML VIAL SQ SCH ×3 (03:51→20:34)
[2017-02-24] MEDS: MORPHINE SULFATE 4 MG/ML INJ IV PUSH PRN ×5 (04:00→23:39)
[2017-02-24] MEDS: SODIUM CHLOR 0.9% 1000 ML INJ 1,000 ML IV SCH ×2 (05:35→17:38)
--- NOTE | 2017-02-24 07:53 | HHI.PR ---
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 02/22: Stable in his bedroom discussed with nurse Miss Root, minimal drainage for probable Chest tube removal if indicated by excellence specialist, his subcutaneous Emphysema is increased now has it in his right arm his back to the lumbar area and anterior chest area, no Nausea, vomit or diarrhea. 02/23: Patient accidentally removed his chest tube this morning was placed again by diesel engine specialist, also had new evaluation by diesel engine specialist this afternoon for new clot in his Chest tube. 02/24: Seen in his bedroom discussed with patient and nurse, continue with subcutaneous emphysema, no nausea, vomit or diarrhea, not yet removed Chest tube. but no complaint by patient. Objective Vital Signs Date Time Temp Pulse Resp B/P Pulse Ox O2 Delivery O2 Flow Rate FiO2 02/24/17 05:00 86 02/24/17 04:44 97.8 82 20 132/82 94 02/24/17 04:10 16 02/24/17 04:00 104 02/24/17 03:00 88 02/24/17 02:00 86 02/24/17 01:40 16 02/24/17 01:00 90 02/24/17 00:00 92 02/23/17 23:15 97.9 97 20 145/98 94 02/23/17 23:00 107 02/23/17 22:00 88 02/23/17 21:00 116 02/23/17 20:01 92 21 02/23/17 20:00 108 02/23/17 20:00 95 Nasal Cannula 3.00 02/23/17 20:00 97.9 111 20 142/96 95 02/23/17 19:00 107 02/23/17 18:24 110 02/23/17 17:36 110 02/23/17 16:34 104 02/23/17 15:51 94 21 02/23/17 15:36 104 02/23/17 15:00 97.8 94 18 138/95 95 02/23/17 14:00 120 02/23/17 13:22 98 02/23/17 12:13 90 02/23/17 11:00 86 02/23/17 11:00 97.9 94 18 115/82 94 02/23/17 10:09 102 02/23/17 09:00 102 02/23/17 08:00 98 I/O 02/23/17 02/23/17 02/23/17 02/24/17 02/24/17 02/24/17 07:00 15:00 23:00 07:00 15:00 23:00 Intake Total 720 ml 1820 ml 840 ml Output Total 2000 ml 1400 ml 1650 ml Balance -1280 ml 420 ml -810 ml Intake Oral 720 ml 720 ml 840 ml IV Total 1100 ml Output Urine Total 2000 ml 1400 ml 1650 ml Drainage Total 0 ml # Bowel Movements 0 Result Diagram: 02/21/17 0622 02/21/17 0622 Imaging Last Impressions Chest X-Ray 02/23/17 0000 Signed Impressions: Service Date/Time: Thursday, February 23, 2017 14:39 - CONCLUSION: 1. Right-sided chest tube without pneumothorax. 2. Extensive bilateral subcutaneous emphysema. 3. Suspected small left pleural effusion. Alber Gibson MD Procedures Right Chest tube placement Other Results Laboratory Tests Test 02/20/17 02/20/17 02/20/17 02/21/17 09:10 15:40 16:22 06:22 Prothrombin Time 11.1 SEC Prothromb Time International 1.0 RATIO Ratio Activated Partial 25.0 SEC Thromboplast Time Magnesium Level 2.3 MG/DL Total Bilirubin 0.6 MG/DL Aspartate Amino Transf 33 U/L (AST/SGOT) Alanine Aminotransferase 26 U/L (ALT/SGPT) Alkaline Phosphatase 87 U/L Creatine Kinase MB 5.7 NG/ML B-Type Natriuretic Peptide 40 PG/ML Total Protein 7.5 GM/DL Albumin 4.0 GM/DL Urine Color YELLOW Urine Turbidity CLEAR Urine pH 5.5 Urine Specific [place] 1.023 Urine Protein 30 mg/dL Urine Glucose (UA) 300 mg/dL Urine Ketones 80 mg/dL Urine Occult Blood TRACE Urine Nitrite NEG Urine Bilirubin NEG Urine Urobilinogen LESS THAN 2.0 MG/DL Urine Leukocyte Esterase NEG Urine RBC LESS THAN 1 /hpf Urine WBC 2 /hpf Urine Squamous Epithelial <1 /hpf Cells Urine Hyaline Casts 3 /lpf Urine Mucus FEW /lpf Microscopic Urinalysis Comment CULT NOT INDICATED Hemoglobin A1c 5.8 % Total Creatine Kinase 168 U/L Troponin I 1.81 NG/ML Triglycerides Level 50 MG/DL Cholesterol Level 181 MG/DL LDL Cholesterol 103 MG/DL HDL Cholesterol 68.0 MG/DL Cholesterol/HDL Ratio 2.66 RATIO Free Thyroxine 1.18 NG/DL Thyroid Stimulating Hormone 0.286 uIU/ML 3rd Gen White Blood Count 13.1 TH/MM3 Red Blood Count 4.36 MIL/MM3 Hemoglobin 12.1 GM/DL Hematocrit 37.6 % Mean Corpuscular Volume 86.1 FL Mean Corpuscular Hemoglobin 27.7 PG Mean Corpuscular Hemoglobin 32.2 % Concent Red Cell Distribution Width 14.9 % Platelet Count 224 TH/MM3 Mean Platelet Volume 8.1 FL Neutrophils (%) (Auto) 77.1 % Lymphocytes (%) (Auto) 11.1 % Monocytes (%) (Auto) 11.6 % Eosinophils (%) (Auto) 0.1 % Basophils (%) (Auto) 0.1 % Neutrophils # (Auto) 10.1 TH/MM3 Lymphocytes # (Auto) 1.5 TH/MM3 Monocytes # (Auto) 1.5 TH/MM3 Eosinophils # (Auto) 0.0 TH/MM3 Basophils # (Auto) 0.0 TH/MM3 CBC Comment DIFF FINAL Differential Comment Sodium Level 142 MEQ/L Potassium Level 4.1 MEQ/L Chloride Level 108 MEQ/L Carbon Dioxide Level 25.9 MEQ/L Anion Gap 8 MEQ/L Blood Urea Nitrogen 14 MG/DL Creatinine 0.72 MG/DL Estimat Glomerular Filtration 110 ML/MIN Rate Random Glucose 114 MG/DL Calcium Level 8.5 MG/DL Objective Remarks GENERAL: No acute distress. SKIN: No rashes, ecchymoses or lesions. Cool and dry. HEAD: Atraumatic. Normocephalic. No temporal or scalp tenderness. EYES: Pupils equal round and reactive. Extraocular motions intact. No scleral icterus. No injection or drainage. ENT: Nose without bleeding. NECK: Trachea midline. No JVD or lymphadenopathy. Supple, nontender, no meningeal signs. CARDIOVASCULAR: Regular rate and rhythm without murmurs, gallops, or rubs. RESPIRATORY: Decreased breath sounds bilateral, Right chest tube in place, Subcutaneous Emphysema improving. GASTROINTESTINAL: Abdomen soft, non-tender, nondistended. No hepato-splenomegaly , or palpable masses. No guarding. MUSCULOSKELETAL: Extremities without clubbing, cyanosis, or edema. NEUROLOGICAL: Awake and alert. No focal deficits. Medications and IVs Current Medications Medications (Trade) Dose Ordered Sig/Pawel Route Start Time Stop Time Status Last Admin (NS 1000 ml Inj) 1,000 ml @ 83 mls/hr Q12H3M IV 02/20/17 11:00 02/22/17 20:47 (NS Flush) 2 ml UNSCH PRN IV FLUSH 02/20/17 11:00 (NS Flush) 2 ml BID IV FLUSH 02/20/17 21:00 02/23/17 19:48 (Tylenol) 650 mg Q4H PRN PO 02/20/17 11:00 (Zofran Inj) 4 mg Q6H PRN IVP 02/20/17 11:00 (Dulcolax Supp) 10 mg DAILY PRN RECTAL 02/20/17 11:00 (Colace) 100 mg Q12HR PO 02/20/17 11:00 02/23/17 19:48 (Heparin Inj) 5,000 units Q8H SQ 02/20/17 12:00 02/24/17 03:51 (Narcan Inj) 0.4 mg UNSCH PRN IV 02/20/17 11:00 (Morphine Inj) 2 mg Q3H PRN IV PUSH 02/20/17 11:00 02/24/17 04:00 (Mucinex Er) 600 mg BID PO 02/20/17 21:00 02/23/17 19:47 (Habitrol 14 Mg Patch.24 Hr) 1 patch DAILY T-DERMAL 02/20/17 12:00 02/23/17 08:12 Miscellaneous Information 1 DAILY T-DERMAL 02/20/17 12:00 02/23/17 09:00 (Pepcid Inj) 20 mg Q12H IV PUSH 02/20/17 12:00 02/23/17 23:12 ([place] 5-325 Mg) 1 tab Q4H PRN PO 02/20/17 18:30 02/24/17 05:46 (Levaquin) 500 mg DAILY PO 02/22/17 09:00 02/23/17 08:11 (Deltasone) 20 mg DAILY PO 02/24/17 09:00 A/P Problem List: (1) Pneumothorax, right ICD Code: J93.9 (2) COPD (chronic obstructive pulmonary disease) ICD Code: J44.9 (3) S/P chest tube placement ICD Code: Z93.8 Assessment and Plan 1. Acute Pneumothorax probably related to Severe COPD/Emphysema status post Right Chest tube placement, continue Oxygen, Cardiac Monitoring, excellence specialist following, Bronchodilator, Mucolytic and Incentive spirometry. added Levaquin by mouth today. Improving subcutaneous Emphysema, improving Pneumothorax. stable not yet recommended to remove chest tube. 2. COPD/Emphysema Mild expiratory wheezing, continue on Steroids by excellence specialist. 3. Tobacco dependence strongly recommended to stop smoking 4. Status post Left upper Lobe resection no clear diagnosis, followed by excellence specialist Doctor Bert Hampton in [place] at [facility]. 5. Mild Leukocytosis worsening probable secondary to #1 started on Levaquin by excellence specialist. 6. Mild Troponin elevation now trending down, probable related to #1. DVT prophylaxis with Heparin Gastric protection with Pepcid. Code Status Full Code. Discussed Condition With Patient and Nurse Discharge Planning Expected by tomorrow. Problem Qualifiers (1) COPD (chronic obstructive pulmonary disease): Qualified Code: J44.1 - Chronic obstructive pulmonary disease with acute exacerbation Tanvir Paz MD February 24, 2017 07:52
[2017-02-24] MEDS: guaiFENesin E.R. 600 MG TAB PO SCH ×2 (08:36→20:35)
[2017-02-24] MEDS: DOCUSATE SODIUM 100 MG CAP PO SCH ×2 (08:37→20:35)
[2017-02-24] MEDS: SODIUM CHLORIDE 0.9% FLUSH 10 ML FLUSH IV FLUSH SCH ×2 (08:37→20:35)
[2017-02-24] MEDS: LEVOFLOXACIN 500 MG TAB PO SCH (08:37)
[2017-02-24] MEDS: predniSONE 20 MG TAB PO SCH (08:37)
[2017-02-24] MEDS: NICOTINE 14 MG/24 HR PATCH T-DERMAL SCH (08:37)
[2017-02-24] MEDS: REMOVE OLD PATCH T-DERMAL SCH (08:37)
[2017-02-24] MEDS: RESP: ALBUTEROL 2.5 MG/IPRATROPIUM 0.5 MG NEB (SCH) NEB ×2 (09:16→13:57)
--- NOTE | 2017-02-24 10:06 | RADRPT ---
EXAM DATE/TIME: 02/24/2017 09:10 [place] COMPARISON: CHEST SINGLE AP, February 23, 2017, 14:39. INDICATIONS : Follow-up pneumothorax. MEDICAL HISTORY : Chronic obstructive pulmonary disease. Congestive heart failure. SURGICAL HISTORY : None. ENCOUNTER: Subsequent ACUITY: 3 days PAIN SCORE: 5/10 LOCATION: Bilateral chest FINDINGS: A single view of the chest demonstrates a small right apical pneumothorax with 2 cm of separation at the apex. This is somewhat limited due to the diffuse cutaneous emphysema throughout the chest wall. A small right-sided chest tube remains in place although it appears to be pulled back compared to the prior study. The left lung is clear and stable. There is an infiltrate in the medial right lower peter g.. CONCLUSION: 1. Small right-sided chest remains in place but appears to be pulled back about 4 cm compared to the prior study. 2. There is a small right apical pneumothorax with 2 cm of separation. There is some limited visualiz ation due to the diffuse subcutaneous emphysema. Sonido Valladares MD on February 24, 2017 at 10:02 Board Certified Radiologist. This report was verified electronically.
[2017-02-24] MEDS: FAMOTIDINE 20 MG/2 ML VIAL IV PUSH SCH ×2 (13:03→23:35)
--- NOTE | 2017-02-24 14:26 | PD.CAR.PN ---
CVT Progress Note Subjective/Hospital Course: 02/23/17 Chest catheter "fell out" last night leading to recurrence of pneumothorax. Catheter replaced with resolution of pneumothorax. He has a small air leak this morning. 02/24/17 right pigtail chest tube in place, + air leak + subq emphysema chest right neck and arm on nasal cannula/ 3 liters CXR noted, resolution of PTX / small right lower lobe infiltrate Objective: GENERAL: SKIN: Warm and dry. + subqu emphysema HEAD: Normocephalic. EYES: No scleral icterus. No injection or drainage. NECK: Supple, trachea midline. No JVD or lymphadenopathy. CARDIOVASCULAR: Regular rate and rhythm without murmurs, gallops, or rubs. RESPIRATORY: Breath sounds equal bilaterally. No accessory muscle use. diminished right lower lobe / chest tube wall suction + air leak GASTROINTESTINAL: Abdomen soft, non-tender, nondistended. MUSCULOSKELETAL: No cyanosis, or edema. BACK: Nontender without obvious deformity. No CVA tenderness. Vital Signs Date Time Temp Pulse Resp B/P Pulse Ox O2 Delivery O2 Flow Rate FiO2 02/24/17 12:37 99 02/24/17 11:00 101 02/24/17 11:00 97.7 96 17 131/87 99 02/24/17 10:00 99 02/24/17 09:20 96 Nasal Cannula 3.00 02/24/17 09:00 101 02/24/17 08:08 110 02/24/17 07:57 97.6 96 20 128/88 94 02/24/17 07:56 76 02/24/17 07:53 95 Room Air 02/24/17 05:00 86 02/24/17 04:44 97.8 82 20 132/82 94 02/24/17 04:10 16 02/24/17 04:00 104 02/24/17 03:00 88 02/24/17 02:00 86 02/24/17 01:40 16 02/24/17 01:00 90 02/24/17 00:00 92 02/23/17 23:15 97.9 97 20 145/98 94 02/23/17 23:00 107 02/23/17 22:00 88 02/23/17 21:00 116 02/23/17 20:01 92 21 02/23/17 20:00 108 02/23/17 20:00 95 Nasal Cannula 3.00 02/23/17 20:00 97.9 111 20 142/96 95 02/23/17 19:00 107 02/23/17 18:24 110 02/23/17 17:36 110 02/23/17 16:34 104 02/23/17 15:51 94 21 02/23/17 15:36 104 02/23/17 15:00 97.8 94 18 138/95 95 Result Diagram: 02/21/1762102/21/17621 Telemetry: irregular (1) Pneumothorax, right Plan: replacement of pigtail chest + air leak / + subq emphysema continue pulm toileting keep chest tube to suction (2) S/P chest tube placement (3) COPD (chronic obstructive pulmonary disease) Plan: on levaquin and steroids Problem Qualifiers (1) COPD (chronic obstructive pulmonary disease): Qualified Code: J44.1 - Chronic obstructive pulmonary disease with acute exacerbation Catina Noel February 24, 2017 14:26
[2017-02-24] MEDS: METOPROLOL TARTRATE 25 MG TAB PO SCH ×2 (17:43→20:35)
--- NOTE | 2017-02-24 19:47 | HHI.PR ---
Subjective Remarks Has less Subcutaneous Emphysema on the right. Chest tube was clogged last PM and was unclogged Resolved Right Pneumothorax on CXR. Objective Vital Signs Date Time Temp Pulse Resp B/P Pulse Ox O2 Delivery O2 Flow Rate FiO2 02/24/17 19:39 95 21 02/24/17 18:10 96 02/24/17 17:00 91 02/24/17 16:00 92 02/24/17 15:27 97.7 111 17 125/72 93 02/24/17 15:27 111 02/24/17 14:33 115 02/24/17 13:00 115 02/24/17 12:37 99 02/24/17 11:00 101 02/24/17 11:00 97.7 96 17 131/87 99 02/24/17 10:00 99 02/24/17 09:20 96 Nasal Cannula 3.00 02/24/17 09:00 101 02/24/17 08:08 110 02/24/17 07:57 97.6 96 20 128/88 94 02/24/17 07:56 76 02/24/17 07:53 95 Room Air 02/24/17 05:00 86 02/24/17 04:44 97.8 82 20 132/82 94 02/24/17 04:10 16 02/24/17 04:00 104 02/24/17 03:00 88 02/24/17 02:00 86 02/24/17 01:40 16 02/24/17 01:00 90 02/24/17 00:00 92 02/23/17 23:15 97.9 97 20 145/98 94 02/23/17 23:00 107 02/23/17 22:00 88 02/23/17 21:00 116 02/23/17 20:01 92 21 02/23/17 20:00 108 02/23/17 20:00 95 Nasal Cannula 3.00 02/23/17 20:00 97.9 111 20 142/96 95 I/O 02/23/17 02/23/17 02/23/17 02/24/17 02/24/17 02/24/17 07:00 15:00 23:00 07:00 15:00 23:00 Intake Total 720 ml 1820 ml 840 ml 1218 ml Output Total 2000 ml 1400 ml 1650 ml 1150 ml Balance -1280 ml 420 ml -810 ml 68 ml Intake Oral 720 ml 720 ml 840 ml 720 ml IV Total 1100 ml 498 ml Output Urine Total 2000 ml 1400 ml 1650 ml 1100 ml Drainage Total 0 ml 50 ml # Bowel Movements 0 1 Result Diagram: 02/21/1762102/21/17621 Procedures Right Chest tube placement Objective Remarks GENERAL: This is a thinly built middle-aged white male who is alert and dyspneic at rest. HEENT: Head normocephalic. Pupils reactive. Tongue is moist. Throat is clear. Nasal mucosa injected. NECK: Supple. No bruits, no thyroid enlargement or lymphadenopathy. CHEST: Increased AP diameter with diminished breath sounds at the periphery. There is a chest tube in place in the right chest and wheezes scattered. Has Sub Cutaneous emphysema of chest wall. bilaterally, prolonged expirations. HEART: The heart sounds are regular S1 and S2. No murmur. ABDOMEN: Soft, benign. No mass, no organomegaly. EXTREMITIES: 1 + edema. Normal reflexes. NEUROLOGIC: No gross motor deficits. Cranial nerves are grossly intact. RECTAL: Exam is deferred. SKIN: Dry and cool. Assessment and Plan Assessment and Plan IMPRESSION 1. Spontaneous right pneumothorax, resolving. 2. Severe emphysema with chronic bronchitis 3. 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 Sub Q Emphysema Plan : 1. Chest Xray in am. 2. Chest tube to wall suction 30 Cm. 3. Nebs qid , duoneb. 4. IS at bedside qid 5. Levaquin 500 mg po q24h. 6. Prednisone 10 mg daily Jesus Harvey MD February 24, 2017 19:47
[2017-02-25] VITALS (25 sets, daily range): BP systolic 113–148; BP diastolic 67–98; PULSE 74–108; RESP 18–20; TEMP 97.6–98.5; O2SAT 92–97
[2017-02-25] MEDS: HEPARIN SODIUM - SQ 10,000 UNITS/ML VIAL SQ SCH ×3 (02:39→20:09)
[2017-02-25] MEDS: ACETAMINOPHEN/HYDROcodone 325 MG/5 MG TAB PO PRN ×4 (02:39→18:48)
[2017-02-25] MEDS: MORPHINE SULFATE 4 MG/ML INJ IV PUSH PRN ×3 (02:43→20:10)
[2017-02-25] MEDS: SODIUM CHLOR 0.9% 1000 ML INJ 1,000 ML IV SCH (05:41)
[2017-02-25] MEDS: DOCUSATE SODIUM 100 MG CAP PO SCH ×2 (07:39→20:09)
[2017-02-25] MEDS: SODIUM CHLORIDE 0.9% FLUSH 10 ML FLUSH IV FLUSH SCH ×2 (07:39→20:11)
[2017-02-25] MEDS: predniSONE 20 MG TAB PO SCH (07:39)
[2017-02-25] MEDS: METOPROLOL TARTRATE 25 MG TAB PO SCH ×2 (07:39→20:11)
[2017-02-25] MEDS: guaiFENesin E.R. 600 MG TAB PO SCH ×2 (07:39→20:10)
[2017-02-25] MEDS: LEVOFLOXACIN 500 MG TAB PO SCH (07:39)
[2017-02-25] MEDS: REMOVE OLD PATCH T-DERMAL SCH (07:40)
[2017-02-25] MEDS: NICOTINE 14 MG/24 HR PATCH T-DERMAL SCH (07:40)
[2017-02-25] MEDS: FAMOTIDINE 20 MG/2 ML VIAL IV PUSH SCH ×2 (11:14→23:56)
[2017-02-25] MEDS: RESP: ALBUTEROL 2.5 MG/IPRATROPIUM 0.5 MG NEB (SCH) NEB ×3 (11:28→20:06)
--- NOTE | 2017-02-25 13:07 | HHI.PR ---
Subjective Remarks Has less Subcutaneous Emphysema on the right. Chest tube is in . Resolved Right Pneumothorax on CXR. Objective Vital Signs Date Time Temp Pulse Resp B/P Pulse Ox O2 Delivery O2 Flow Rate FiO2 02/25/17 13:02 89 02/25/17 12:05 101 02/25/17 11:31 93 02/25/17 11:31 97.7 91 18 113/67 97 02/25/17 11:16 93 21 02/25/17 10:11 100 02/25/17 09:00 97 02/25/17 08:44 18 02/25/17 08:30 97.9 96 20 142/87 92 02/25/17 08:30 92 Room Air 02/25/17 08:30 88 02/25/17 04:00 98.5 86 20 148/98 96 02/25/17 04:00 90 02/25/17 03:00 83 02/25/17 02:00 80 02/25/17 01:00 74 02/25/17 00:20 98.3 74 20 129/92 95 02/25/17 00:00 108 02/24/17 23:00 83 02/24/17 22:00 80 02/24/17 21:00 96 02/24/17 20:40 18 02/24/17 20:00 108 02/24/17 19:39 95 21 02/24/17 19:30 98.3 105 20 136/94 95 02/24/17 19:30 95 Room Air 02/24/17 19:00 84 02/24/17 18:10 96 02/24/17 17:00 91 02/24/17 16:00 92 02/24/17 15:27 97.7 111 17 125/72 93 02/24/17 15:27 111 02/24/17 14:33 115 I/O 02/24/17 02/24/17 02/24/17 02/25/17 02/25/17 02/25/17 07:00 15:00 23:00 07:00 15:00 23:00 Intake Total 840 ml 1218 ml 1000 ml Output Total 1650 ml 1150 ml 900 ml 25 ml Balance -810 ml 68 ml 100 ml -25 ml Intake Oral 840 ml 720 ml 1000 ml IV Total 498 ml Output Urine Total 1650 ml 1100 ml 900 ml Chest Tube Drainage Total 25 ml Drainage Total 50 ml # Bowel Movements 1 Result Diagram: 02/21/1762102/21/17621 Procedures Right Chest tube placement Objective Remarks GENERAL: This is a thinly built middle-aged white male who is alert and in no distress HEENT: Head normocephalic. Pupils reactive. Tongue is moist. Throat is clear. Nasal mucosa injected. NECK: Supple. No bruits, no thyroid enlargement or lymphadenopathy. CHEST: Increased AP diameter with diminished breath sounds at the periphery. There is a chest tube in place in the right chest and wheezes scattered. bilaterally, prolonged expirations. HEART: The heart sounds are regular S1 and S2. No murmur. ABDOMEN: Soft, benign. No mass, no organomegaly. EXTREMITIES: 1 + edema. Normal reflexes. NEUROLOGIC: No gross motor deficits. Cranial nerves are grossly intact. RECTAL: Exam is deferred. SKIN: Dry and cool. Assessment and Plan Assessment and Plan IMPRESSION 1. Spontaneous right pneumothorax, resolving. 2. Severe emphysema with chronic bronchitis 3. 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 Sub Q Emphysema Plan : 1. Chest Xray in am. 2. Chest tube to wall suction 30 Cm. 3. Nebs qid , duoneb. 4. IS at bedside qid 5. Levaquin 500 mg po q24h. 6. Prednisone 10 mg daily Jesus Harvey MD February 25, 2017 13:07
--- NOTE | 2017-02-25 13:38 | HHI.PR ---
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 Based in [place], came to [facility] to pick a car to deliver to [place], he has COPD/Emphysema with status post Left Upper lobe resection with no clear history of Neoplasia he has metrology specialist in [place] Doctor Bert Hampton he had last appointment In October this year and has next follow up in March this year, he states he woke up in am with some chest discomfort, but when came to [facility] had shortness of breath worsening, he was trying to use his inhaler but was told by his coordinator to get an ambulance he was brought in to ER and found Right Pneumothorax initially on BiPAP and then Chest tube placement. 02/22: Stable in his bedroom discussed with nurse Miss Root, minimal drainage for probable Chest tube removal if indicated by metrology specialist, his subcutaneous Emphysema is increased now has it in his right arm his back to the lumbar area and anterior chest area, no Nausea, vomit or diarrhea. 02/23: Patient accidentally removed his chest tube this morning was placed again by meat specialist, also had new evaluation by meat specialist this afternoon for new clot in his Chest tube. 02/24: Seen in his bedroom discussed with patient and nurse, continue with subcutaneous emphysema, no nausea, vomit or diarrhea, not yet removed Chest tube. but no complaint by patient. 02/25: Seen in his bedroom, discussed with metrology specialist Doctor Harvey he will clamp the chest tube tomorrow patient stable, no nausea, vomit or diarrhea Objective Vital Signs Date Time Temp Pulse Resp B/P Pulse Ox O2 Delivery O2 Flow Rate FiO2 02/25/17 13:02 89 02/25/17 12:05 101 02/25/17 11:31 93 02/25/17 11:31 97.7 91 18 113/67 97 02/25/17 11:16 93 21 02/25/17 10:11 100 02/25/17 09:00 97 02/25/17 08:44 18 02/25/17 08:30 97.9 96 20 142/87 92 02/25/17 08:30 92 Room Air 02/25/17 08:30 88 02/25/17 04:00 98.5 86 20 148/98 96 02/25/17 04:00 90 02/25/17 03:00 83 02/25/17 02:00 80 02/25/17 01:00 74 02/25/17 00:20 98.3 74 20 129/92 95 02/25/17 00:00 108 02/24/17 23:00 83 02/24/17 22:00 80 02/24/17 21:00 96 02/24/17 20:40 18 02/24/17 20:00 108 02/24/17 19:39 95 21 02/24/17 19:30 98.3 105 20 136/94 95 02/24/17 19:30 95 Room Air 02/24/17 19:00 84 02/24/17 18:10 96 02/24/17 17:00 91 02/24/17 16:00 92 02/24/17 15:27 97.7 111 17 125/72 93 02/24/17 15:27 111 02/24/17 14:33 115 I/O 02/24/17 02/24/17 02/24/17 02/25/17 02/25/17 02/25/17 07:00 15:00 23:00 07:00 15:00 23:00 Intake Total 840 ml 1218 ml 1000 ml Output Total 1650 ml 1150 ml 900 ml 25 ml Balance -810 ml 68 ml 100 ml -25 ml Intake Oral 840 ml 720 ml 1000 ml IV Total 498 ml Output Urine Total 1650 ml 1100 ml 900 ml Chest Tube Drainage Total 25 ml Drainage Total 50 ml # Bowel Movements 1 Result Diagram: 02/21/17 0622 02/21/17621 Imaging Last Impressions Chest X-Ray 02/24/17 0000 Signed Impressions: Service Date/Time: Friday, February 24, 2017 09:10 - CONCLUSION: 1. Small right-sided chest remains in place but appears to be pulled back about 4 cm compared to the prior study. 2. There is a small right apical pneumothorax with 2 cm of separation. There is some limited visualization due to the diffuse subcutaneous emphysema. Sonido Valladares MD Procedures Right Chest tube placement Other Results Laboratory Tests Test 02/21/17 06:22 White Blood Count 13.1 TH/MM3 Red Blood Count 4.36 MIL/MM3 Hemoglobin 12.1 GM/DL Hematocrit 37.6 % Mean Corpuscular Volume 86.1 FL Mean Corpuscular Hemoglobin 27.7 PG Mean Corpuscular Hemoglobin 32.2 % Concent Red Cell Distribution Width 14.9 % Platelet Count 224 TH/MM3 Mean Platelet Volume 8.1 FL Neutrophils (%) (Auto) 77.1 % Lymphocytes (%) (Auto) 11.1 % Monocytes (%) (Auto) 11.6 % Eosinophils (%) (Auto) 0.1 % Basophils (%) (Auto) 0.1 % Neutrophils # (Auto) 10.1 TH/MM3 Lymphocytes # (Auto) 1.5 TH/MM3 Monocytes # (Auto) 1.5 TH/MM3 Eosinophils # (Auto) 0.0 TH/MM3 Basophils # (Auto) 0.0 TH/MM3 CBC Comment DIFF FINAL Differential Comment Sodium Level 142 MEQ/L Potassium Level 4.1 MEQ/L Chloride Level 108 MEQ/L Carbon Dioxide Level 25.9 MEQ/L Anion Gap 8 MEQ/L Blood Urea Nitrogen 14 MG/DL Creatinine 0.72 MG/DL Estimat Glomerular Filtration 110 ML/MIN Rate Random Glucose 114 MG/DL Calcium Level 8.5 MG/DL Objective Remarks GENERAL: No acute distress. SKIN: No rashes, ecchymoses or lesions. Cool and dry. HEAD: Atraumatic. Normocephalic. No temporal or scalp tenderness. EYES: Pupils equal round and reactive. Extraocular motions intact. No scleral icterus. No injection or drainage. ENT: Nose without bleeding. NECK: Trachea midline. No JVD or lymphadenopathy. Supple, nontender, no meningeal signs. CARDIOVASCULAR: Regular rate and rhythm without murmurs, gallops, or rubs. RESPIRATORY: Decreased breath sounds bilateral, Right chest tube in place, Subcutaneous Emphysema improving. GASTROINTESTINAL: Abdomen soft, non-tender, nondistended. No hepato-splenomegaly , or palpable masses. No guarding. MUSCULOSKELETAL: Extremities without clubbing, cyanosis, or edema. NEUROLOGICAL: Awake and alert. No focal deficits. Medications and IVs Current Medications Medications (Trade) Dose Ordered Sig/Pawel Route Start Time Stop Time Status Last Admin (NS Flush) 2 ml UNSCH PRN IV FLUSH 02/20/17 11:00 (NS Flush) 2 ml BID IV FLUSH 02/20/17 21:00 02/25/17 07:39 (Tylenol) 650 mg Q4H PRN PO 02/20/17 11:00 (Zofran Inj) 4 mg Q6H PRN IVP 02/20/17 11:00 (Dulcolax Supp) 10 mg DAILY PRN RECTAL 02/20/17 11:00 (Colace) 100 mg Q12HR PO 02/20/17 11:00 02/25/17 07:39 (Heparin Inj) 5,000 units Q8H SQ 02/20/17 12:00 02/25/17 11:14 (Narcan Inj) 0.4 mg UNSCH PRN IV 02/20/17 11:00 (Morphine Inj) 2 mg Q3H PRN IV PUSH 02/20/17 11:00 02/25/17 02:43 (Mucinex Er) 600 mg BID PO 02/20/17 21:00 02/25/17 07:39 (Habitrol 14 Mg Patch.24 Hr) 1 patch DAILY T-DERMAL 02/20/17 12:00 02/25/17 07:40 Miscellaneous Information 1 DAILY T-DERMAL 02/20/17 12:00 02/25/17 07:40 (Pepcid Inj) 20 mg Q12H IV PUSH 02/20/17 12:00 02/25/17 11:14 (Amenia 5-325 Mg) 1 tab Q4H PRN PO 02/20/17 18:30 02/25/17 07:36 (Levaquin) 500 mg DAILY PO 02/22/17 09:00 02/25/17 07:39 (Lopressor) 12.5 mg Q12HR PO 02/24/17 17:00 02/25/17 07:39 (Deltasone) 10 mg DAILY PO 02/26/17 09:00 A/P Problem List: (1) Pneumothorax, right ICD Code: J93.9 (2) COPD (chronic obstructive pulmonary disease) ICD Code: J44.9 (3) S/P chest tube placement ICD Code: Z93.8 Assessment and Plan 1. Acute Pneumothorax probably related to Severe COPD/Emphysema status post Right Chest tube placement, continue Oxygen, Cardiac Monitoring, metrology specialist following, Bronchodilator, Mucolytic and Incentive spirometry. added Levaquin by mouth today. Improving subcutaneous Emphysema, improving Pneumothorax. for tomorrow to clamp the tube and follow 2. COPD/Emphysema Mild expiratory wheezing, continue on Steroids by metrology specialist. 3. Tobacco dependence strongly recommended to stop smoking 4. Status post Left upper Lobe resection no clear diagnosis, followed by metrology specialist Doctor Bert Hampton in [place] at [facility]. 5. Mild Leukocytosis worsening probable secondary to #1 started on Levaquin by metrology specialist. 6. Mild Troponin elevation now trending down, probable related to #1. DVT prophylaxis with Heparin Gastric protection with Pepcid. I had the pleasure to talk about the case with metrology specialist Doctor Jason Harvey appreciated. Code Status Full Code. Discussed Condition With Patient and Nurse Discharge Planning Once cleared by metrology specialist. Problem Qualifiers (1) COPD (chronic obstructive pulmonary disease): Qualified Code: J44.1 - Chronic obstructive pulmonary disease with acute exacerbation Tanvir Paz MD February 25, 2017 13:38
--- NOTE | 2017-02-25 17:17 | PD.CAR.PN ---
CVT Progress Note Subjective/Hospital Course: 02/23/17 Chest catheter "fell out" last night leading to recurrence of pneumothorax. Catheter replaced with resolution of pneumothorax. He has a small air leak this morning. 02/24/17 right pigtail chest tube in place, + air leak + subq emphysema chest right neck and arm on nasal cannula/ 3 liters CXR noted, resolution of PTX / small right lower lobe infiltrate 02/25 still has +1 air leak still has subqu emphysema chest right neck and arm, unchanged on nasal cannula Objective: GENERAL: SKIN: Warm and dry. HEAD: Normocephalic. EYES: No scleral icterus. No injection or drainage. NECK: Supple, trachea midline. No JVD or lymphadenopathy. CARDIOVASCULAR: Regular rate and rhythm without murmurs, gallops, or rubs. RESPIRATORY: + subq emphysema chest tube to 30cm wall suction + air leak , minimal drainage Breath sounds equal bilaterally. No accessory muscle use. GASTROINTESTINAL: Abdomen soft, non-tender, nondistended. MUSCULOSKELETAL: No cyanosis, or edema. BACK: Nontender without obvious deformity. No CVA tenderness. Vital Signs Date Time Temp Pulse Resp B/P Pulse Ox O2 Delivery O2 Flow Rate FiO2 02/25/17 17:02 92 02/25/17 16:10 93 02/25/17 15:44 18 02/25/17 15:30 92 02/25/17 15:30 94 Nasal Cannula 1.00 02/25/17 15:30 97.6 74 18 115/77 94 02/25/17 14:02 97 02/25/17 13:02 89 02/25/17 12:05 101 02/25/17 11:31 97 Nasal Cannula 1.00 02/25/17 11:31 93 02/25/17 11:31 97.7 91 18 113/67 97 02/25/17 11:16 93 21 02/25/17 10:11 100 02/25/17 09:00 97 02/25/17 08:44 18 02/25/17 08:30 97.9 96 20 142/87 92 02/25/17 08:30 92 Room Air 02/25/17 08:30 88 02/25/17 04:00 98.5 86 20 148/98 96 02/25/17 04:00 90 02/25/17 03:00 83 02/25/17 02:00 80 02/25/17 01:00 74 02/25/17 00:20 98.3 74 20 129/92 95 02/25/17 00:00 108 02/24/17 23:00 83 02/24/17 22:00 80 02/24/17 21:00 96 02/24/17 20:00 108 02/24/17 19:39 95 21 02/24/17 19:30 98.3 105 20 136/94 95 02/24/17 19:30 95 Room Air 02/24/17 19:00 84 02/24/17 18:10 96 Result Diagram: 02/21/1762102/21/17621 Telemetry: NSR (1) Pneumothorax, right Plan: replacement of pigtail chest + air leak / + subq emphysema continue pulm toileting keep chest tube to suction / change to 10cm may need replacement of chest tube to larger bore size (2) S/P chest tube placement (3) COPD (chronic obstructive pulmonary disease) Plan: on levaquin and steroids Problem Qualifiers (1) COPD (chronic obstructive pulmonary disease): Qualified Code: J44.1 - Chronic obstructive pulmonary disease with acute exacerbation Catina Noel February 25, 2017 17:17
[2017-02-26] VITALS (27 sets, daily range): BP systolic 116–148; BP diastolic 77–98; PULSE 71–120; RESP 18–20; TEMP 97.7–98.3; O2SAT 93–96
[2017-02-26] MEDS: RESP: ALBUTEROL 2.5 MG/IPRATROPIUM 0.5 MG NEB (SCH) NEB ×8 (04:00→23:36)
[2017-02-26] MEDS: HEPARIN SODIUM - SQ 10,000 UNITS/ML VIAL SQ SCH ×3 (04:40→21:14)
[2017-02-26] MEDS: MORPHINE SULFATE 4 MG/ML INJ IV PUSH PRN (04:41)
--- NOTE | 2017-02-26 07:52 | HHI.PR ---
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 02/22: Stable in his bedroom discussed with nurse Miss Root, minimal drainage for probable Chest tube removal if indicated by ocean lifeguard specialist, his subcutaneous Emphysema is increased now has it in his right arm his back to the lumbar area and anterior chest area. 02/23: Patient accidentally removed his chest tube this morning was placed again by talent management specialist, also had new evaluation by talent management specialist this afternoon for new clot in his Chest tube. 02/24: Seen in his bedroom discussed with patient and nurse, continue with subcutaneous emphysema. 02/25: Seen in his bedroom, discussed with ocean lifeguard specialist Doctor Wes he will clamp the chest tube tomorrow 02/26: Stable in his bedroom discussed with nurse continue with Subcutaneous Emphysema, ocean lifeguard specialist thinking in possible bigger chest tube if no improvement. NO nausea, vomit or diarrhea. Objective Vital Signs Date Time Temp Pulse Resp B/P Pulse Ox O2 Delivery O2 Flow Rate FiO2 02/26/17 07:21 78 02/26/17 06:00 80 02/26/17 05:00 80 02/26/17 04:00 98.3 78 20 148/98 96 02/26/17 04:00 76 02/26/17 04:00 96 Room Air 02/26/17 03:00 105 02/26/17 02:00 84 02/26/17 01:00 80 02/26/17 00:00 96 Room Air 02/26/17 00:00 97.9 83 20 132/87 96 02/26/17 00:00 84 02/25/17 23:00 74 02/25/17 22:00 90 02/25/17 21:00 86 02/25/17 20:08 95 Nasal Cannula 2.00 02/25/17 20:05 96 Room Air 02/25/17 20:05 97.8 97 20 139/85 96 02/25/17 20:05 96 Room Air 02/25/17 20:00 98 02/25/17 19:00 86 02/25/17 18:45 105 02/25/17 17:02 92 02/25/17 16:10 93 02/25/17 15:44 18 02/25/17 15:30 92 02/25/17 15:30 94 Nasal Cannula 1.00 02/25/17 15:30 97.6 74 18 115/77 94 02/25/17 14:02 97 02/25/17 13:02 89 02/25/17 12:05 101 02/25/17 11:31 97 Nasal Cannula 1.00 02/25/17 11:31 93 02/25/17 11:31 97.7 91 18 113/67 97 02/25/17 11:16 93 21 02/25/17 10:11 100 02/25/17 09:00 97 02/25/17 08:44 18 02/25/17 08:30 97.9 96 20 142/87 92 02/25/17 08:30 92 Room Air 02/25/17 08:30 88 I/O 02/25/17 02/25/17 02/25/17 02/26/17 02/26/17 02/26/17 07:00 15:00 23:00 07:00 15:00 23:00 Intake Total 1000 ml 600 ml 240 ml Output Total 900 ml 25 ml 830 ml 530 ml Balance 100 ml -25 ml -230 ml -290 ml Intake Oral 1000 ml 600 ml 240 ml Output Urine Total 900 ml 750 ml 500 ml Chest Tube Drainage Total 25 ml 80 ml 30 ml # Bowel Movements 0 Imaging Last Impressions Chest X-Ray 02/24/17 0000 Signed Impressions: Service Date/Time: Friday, February 24, 2017 09:10 - CONCLUSION: 1. Small right-sided chest remains in place but appears to be pulled back about 4 cm compared to the prior study. 2. There is a small right apical pneumothorax with 2 cm of separation. There is some limited visualization due to the diffuse subcutaneous emphysema. Sonido Valladares MD Procedures Right Chest tube placement Other Results No New laboratory Objective Remarks GENERAL: No acute distress. SKIN: No rashes, ecchymoses or lesions. Cool and dry. HEAD: Atraumatic. Normocephalic. No temporal or scalp tenderness. EYES: Pupils equal round and reactive. Extraocular motions intact. No scleral icterus. No injection or drainage. ENT: Nose without bleeding. NECK: Trachea midline. No JVD or lymphadenopathy. Supple, nontender, no meningeal signs. CARDIOVASCULAR: Regular rate and rhythm without murmurs, gallops, or rubs. RESPIRATORY: Decreased breath sounds bilateral, Right chest tube in place, Subcutaneous Emphysema improving. GASTROINTESTINAL: Abdomen soft, non-tender, nondistended. No hepato-splenomegaly , or palpable masses. No guarding. MUSCULOSKELETAL: Extremities without clubbing, cyanosis, or edema. NEUROLOGICAL: Awake and alert. No focal deficits. Medications and IVs Current Medications Medications (Trade) Dose Ordered Sig/Pawel Route Start Time Stop Time Status Last Admin (NS Flush) 2 ml UNSCH PRN IV FLUSH 02/20/17 11:00 (NS Flush) 2 ml BID IV FLUSH 02/20/17 21:00 02/25/17 20:11 (Tylenol) 650 mg Q4H PRN PO 02/20/17 11:00 (Zofran Inj) 4 mg Q6H PRN IVP 02/20/17 11:00 (Dulcolax Supp) 10 mg DAILY PRN RECTAL 02/20/17 11:00 (Colace) 100 mg Q12HR PO 02/20/17 11:00 02/25/17 20:09 (Heparin Inj) 5,000 units Q8H SQ 02/20/17 12:00 02/26/17 04:40 (Narcan Inj) 0.4 mg UNSCH PRN IV 02/20/17 11:00 (Morphine Inj) 2 mg Q3H PRN IV PUSH 02/20/17 11:00 02/26/17 04:41 (Mucinex Er) 600 mg BID PO 02/20/17 21:00 02/25/17 20:10 (Habitrol 14 Mg Patch.24 Hr) 1 patch DAILY T-DERMAL 02/20/17 12:00 02/25/17 07:40 Miscellaneous Information 1 DAILY T-DERMAL 02/20/17 12:00 02/25/17 07:40 (Pepcid Inj) 20 mg Q12H IV PUSH 02/20/17 12:00 02/25/17 23:56 (Gibson 5-325 Mg) 1 tab Q4H PRN PO 02/20/17 18:30 02/25/17 18:48 (Levaquin) 500 mg DAILY PO 02/22/17 09:00 02/25/17 07:39 (Lopressor) 12.5 mg Q12HR PO 02/24/17 17:00 02/25/17 20:11 (Deltasone) 10 mg DAILY PO 02/26/17 09:00 A/P Problem List: (1) Pneumothorax, right ICD Code: J93.9 (2) COPD (chronic obstructive pulmonary disease) ICD Code: J44.9 (3) S/P chest tube placement ICD Code: Z93.8 Assessment and Plan 1. Acute Pneumothorax probably related to Severe COPD/Emphysema status post Right Chest tube placement, continue Oxygen, Cardiac Monitoring, ocean lifeguard specialist following, Bronchodilator, Mucolytic and Incentive spirometry. added Levaquin by mouth today. today worsening subcutaneous emphysema, ocean lifeguard specialist thinking in a bigger chest tube if no improvement. 2. COPD/Emphysema Mild expiratory wheezing, continue on Steroids by ocean lifeguard specialist. 3. Tobacco dependence strongly recommended to stop smoking 4. Status post Left upper Lobe resection no clear diagnosis, followed by ocean lifeguard specialist Doctor Bert Hampton in [place] at [facility]. 5. Mild Leukocytosis worsening probable secondary to #1 started on Levaquin by ocean lifeguard specialist. 6. Mild Troponin elevation now trending down, probable related to #1. DVT prophylaxis with Heparin Gastric protection with Pepcid. Code Status Full Code. Discussed Condition With Patient and Nurse Discharge Planning Once cleared by ocean lifeguard specialist. Problem Qualifiers (1) COPD (chronic obstructive pulmonary disease): Qualified Code: J44.1 - Chronic obstructive pulmonary disease with acute exacerbation Tanvir Paz MD February 26, 2017 07:52 Tanvir Pza MD February 26, 2017 07:52
[2017-02-26] MEDS: NICOTINE 14 MG/24 HR PATCH T-DERMAL SCH (08:09)
[2017-02-26] MEDS: DOCUSATE SODIUM 100 MG CAP PO SCH ×2 (08:09→21:13)
[2017-02-26] MEDS: LEVOFLOXACIN 500 MG TAB PO SCH (08:09)
[2017-02-26] MEDS: predniSONE 10 MG TAB PO SCH (08:09)
[2017-02-26] MEDS: METOPROLOL TARTRATE 25 MG TAB PO SCH ×2 (08:09→21:14)
[2017-02-26] MEDS: guaiFENesin E.R. 600 MG TAB PO SCH ×2 (08:09→21:14)
[2017-02-26] MEDS: REMOVE OLD PATCH T-DERMAL SCH (08:09)
[2017-02-26] MEDS: SODIUM CHLORIDE 0.9% FLUSH 10 ML FLUSH IV FLUSH SCH ×2 (08:10→21:00)
[2017-02-26] MEDS: ACETAMINOPHEN/HYDROcodone 325 MG/5 MG TAB PO PRN ×2 (08:13→18:31)
--- NOTE | 2017-02-26 09:28 | RADRPT ---
EXAM DATE/TIME: 02/26/2017 08:59 [facility] COMPARISON: CHEST SINGLE AP, February 20, 2017, 9:03. CHEST SINGLE AP, February 20, 2017, 9:48. CHEST SINGLE AP, February 24, 2017, 9:10. INDICATIONS : Follow up pneumothorax. MEDICAL HISTORY : Chronic obstructive pulmonary disease. SURGICAL HISTORY : lobe removed from left lobe 2016 ENCOUNTER: Initial ACUITY: 4 - 6 days PAIN SCORE: 4/10 LOCATION: Bilateral chest FINDINGS: There is extensive subcutaneous emphysema over the right chest wall and left chest wall that has prog ressed in the interval. There is no residual pneumothorax. Heart and probably vascularity are teresa l. Increasing CONCLUSION: Increasing subcutaneous emphysema. Jadiel Viramontes MD FACR on February 26, 2017 at 9:20 Board Certified Radiologist. This report was verified electronically.
--- NOTE | 2017-02-26 10:05 | PD.CAR.PN ---
CVT Progress Note Subjective/Hospital Course: 02/23/17 Chest catheter "fell out" last night leading to recurrence of pneumothorax. Catheter replaced with resolution of pneumothorax. He has a small air leak this morning. 02/24/17 right pigtail chest tube in place, + air leak + subq emphysema chest right neck and arm on nasal cannula/ 3 liters CXR noted, resolution of PTX / small right lower lobe infiltrate 02/25 still has +1 air leak still has subqu emphysema chest right neck and arm, unchanged on nasal cannula 02/26 worsening right chest and arm subq emphysema CXR noted , no further PTX, intermittent +1 air leak Objective: GENERAL: SKIN: Warm and dry. HEAD: Normocephalic. EYES: No scleral icterus. No injection or drainage. NECK: Supple, trachea midline. No JVD or lymphadenopathy. CARDIOVASCULAR: Regular rate and rhythm without murmurs, gallops, or rubs. RESPIRATORY: diminihsed on right/ extensive subq air right chest wall, worse from yesterday Breath sounds equal bilaterally. No accessory muscle use. GASTROINTESTINAL: Abdomen soft, non-tender, nondistended. MUSCULOSKELETAL: No cyanosis, or edema. BACK: Nontender without obvious deformity. No CVA tenderness. Vital Signs Date Time Temp Pulse Resp B/P Pulse Ox O2 Delivery O2 Flow Rate FiO2 02/26/17 09:29 76 02/26/17 08:08 94 21 02/26/17 08:03 71 02/26/17 07:21 78 02/26/17 07:00 96 Room Air 02/26/17 07:00 97.7 86 20 126/77 96 02/26/17 07:00 96 Room Air 02/26/17 06:00 80 02/26/17 05:00 80 02/26/17 04:00 98.3 78 20 148/98 96 02/26/17 04:00 76 02/26/17 04:00 96 Room Air 02/26/17 03:00 105 02/26/17 02:00 84 02/26/17 01:00 80 02/26/17 00:00 96 Room Air 02/26/17 00:00 97.9 83 20 132/87 96 02/26/17 00:00 84 02/25/17 23:00 74 02/25/17 22:00 90 02/25/17 21:00 86 02/25/17 20:08 95 Nasal Cannula 2.00 02/25/17 20:05 96 Room Air 02/25/17 20:05 97.8 97 20 139/85 96 02/25/17 20:05 96 Room Air 02/25/17 20:00 98 02/25/17 19:00 86 02/25/17 18:45 105 02/25/17 17:02 92 02/25/17 16:10 93 02/25/17 15:44 18 02/25/17 15:30 92 02/25/17 15:30 94 Nasal Cannula 1.00 02/25/17 15:30 97.6 74 18 115/77 94 02/25/17 14:02 97 02/25/17 13:02 89 02/25/17 12:05 101 02/25/17 11:31 97 Nasal Cannula 1.00 02/25/17 11:31 93 02/25/17 11:31 97.7 91 18 113/67 97 02/25/17 11:16 93 21 02/25/17 10:11 100 Telemetry: NSR (1) Pneumothorax, right Plan: replacement of pigtail chest + air leak / + subq emphysema continue pulm toileting keep chest tube to suction / change to 10cm may need replacement of chest tube to larger bore size still has extensive sub q emphysema no further ptx on cxr (2) S/P chest tube placement (3) COPD (chronic obstructive pulmonary disease) Plan: on levaquin and steroids Problem Qualifiers (1) COPD (chronic obstructive pulmonary disease): Qualified Code: J44.1 - Chronic obstructive pulmonary disease with acute exacerbation Catina Noel February 26, 2017 10:04
[2017-02-26] MEDS: FAMOTIDINE 20 MG/2 ML VIAL IV PUSH SCH ×2 (11:46→23:55)
--- NOTE | 2017-02-26 12:24 | HHI.PR ---
Subjective Remarks Has less Subcutaneous Emphysema on the right. Chest tube is in . Small Pneumothorax on Right Objective Vital Signs Date Time Temp Pulse Resp B/P Pulse Ox O2 Delivery O2 Flow Rate FiO2 02/26/17 10:24 74 02/26/17 09:29 76 02/26/17 08:08 94 21 02/26/17 08:03 71 02/26/17 07:21 78 02/26/17 07:00 96 Room Air 02/26/17 07:00 97.7 86 20 126/77 96 02/26/17 07:00 96 Room Air 02/26/17 06:00 80 02/26/17 05:00 80 02/26/17 04:00 98.3 78 20 148/98 96 02/26/17 04:00 76 02/26/17 04:00 96 Room Air 02/26/17 03:00 105 02/26/17 02:00 84 02/26/17 01:00 80 02/26/17 00:00 96 Room Air 02/26/17 00:00 97.9 83 20 132/87 96 02/26/17 00:00 84 02/25/17 23:00 74 02/25/17 22:00 90 02/25/17 21:00 86 02/25/17 20:08 95 Nasal Cannula 2.00 02/25/17 20:05 96 Room Air 02/25/17 20:05 97.8 97 20 139/85 96 02/25/17 20:05 96 Room Air 02/25/17 20:00 98 02/25/17 19:00 86 02/25/17 18:45 105 02/25/17 17:02 92 02/25/17 16:10 93 02/25/17 15:44 18 02/25/17 15:30 92 02/25/17 15:30 94 Nasal Cannula 1.00 02/25/17 15:30 97.6 74 18 115/77 94 02/25/17 14:02 97 02/25/17 13:02 89 I/O 02/25/17 02/25/17 02/25/17 02/26/17 02/26/17 02/26/17 07:00 15:00 23:00 07:00 15:00 23:00 Intake Total 1000 ml 600 ml 240 ml Output Total 900 ml 25 ml 830 ml 530 ml Balance 100 ml -25 ml -230 ml -290 ml Intake Oral 1000 ml 600 ml 240 ml Output Urine Total 900 ml 750 ml 500 ml Chest Tube Drainage Total 25 ml 80 ml 30 ml # Bowel Movements 0 Procedures Right Chest tube placement Objective Remarks GENERAL: This is a thinly built middle-aged white male who is alert and in no distress HEENT: Head normocephalic. Pupils reactive. Tongue is moist. Throat is clear. Nasal mucosa injected. NECK: Supple. No bruits, no thyroid enlargement or lymphadenopathy. CHEST: Increased AP diameter with diminished breath sounds at the periphery. There is a chest tube in place in the right chest and wheezes scattered. bilaterally, prolonged expirations. HEART: The heart sounds are regular S1 and S2. No murmur. ABDOMEN: Soft, benign. No mass, no organomegaly. EXTREMITIES: No edema. Normal reflexes. NEUROLOGIC: No gross motor deficits. RECTAL: Exam is deferred. SKIN: Dry and cool. Assessment and Plan Assessment and Plan IMPRESSION 1. Spontaneous right pneumothorax, resolving. 2. Severe emphysema with chronic bronchitis 3. 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 Sub Q Emphysema Plan : 1. Chest X ray in am. 2. Chest tube to wall suction 20 Cm. 3. Nebs qid , duoneb. 4. IS at bedside qid 5. Levaquin 500 mg po q24h. 6. Change Chest tube. Jesus Harvey MD February 26, 2017 12:23
[2017-02-27] VITALS (27 sets, daily range): BP systolic 91–138; BP diastolic 63–86; PULSE 81–118; RESP 20; TEMP 97.4–98; O2SAT 91–97
[2017-02-27] MEDS: RESP: ALBUTEROL 2.5 MG/IPRATROPIUM 0.5 MG NEB (SCH) NEB ×6 (02:57→23:36)
[2017-02-27] MEDS: HEPARIN SODIUM - SQ 10,000 UNITS/ML VIAL SQ SCH ×3 (03:33→19:56)
[2017-02-27] MEDS: MORPHINE SULFATE 4 MG/ML INJ IV PUSH PRN ×2 (07:23→17:54)
[2017-02-27] MEDS: REMOVE OLD PATCH T-DERMAL SCH (07:48)
[2017-02-27] MEDS: NICOTINE 14 MG/24 HR PATCH T-DERMAL SCH (07:48)
[2017-02-27] MEDS: DOCUSATE SODIUM 100 MG CAP PO SCH ×2 (07:49→19:57)
[2017-02-27] MEDS: LEVOFLOXACIN 500 MG TAB PO SCH (07:49)
[2017-02-27] MEDS: ACETAMINOPHEN/HYDROcodone 325 MG/5 MG TAB PO PRN ×2 (07:49→17:35)
[2017-02-27] MEDS: guaiFENesin E.R. 600 MG TAB PO SCH ×2 (07:49→19:56)
[2017-02-27] MEDS: predniSONE 10 MG TAB PO SCH (07:49)
[2017-02-27] MEDS: METOPROLOL TARTRATE 25 MG TAB PO SCH ×2 (07:49→19:56)
[2017-02-27] MEDS: SODIUM CHLORIDE 0.9% FLUSH 10 ML FLUSH IV FLUSH SCH ×2 (07:50→19:57)
[2017-02-27] MEDS: FAMOTIDINE 20 MG/2 ML VIAL IV PUSH SCH (12:36)
--- NOTE | 2017-02-27 12:49 | HHI.PR ---
Subjective Remarks Has less Subcutaneous Emphysema on the right. Chest tube is in . Small air leak. was SOB earlier. Needs a Second tube Objective Vital Signs Date Time Temp Pulse Resp B/P Pulse Ox O2 Delivery O2 Flow Rate FiO2 02/27/17 12:28 102 02/27/17 11:27 96 Nasal Cannula 2.00 02/27/17 11:27 101 02/27/17 11:27 97.7 94 20 91/63 96 02/27/17 10:00 115 02/27/17 09:07 93 02/27/17 08:57 18 02/27/17 08:10 97.5 89 20 138/83 96 02/27/17 08:10 96 Nasal Cannula 2.00 02/27/17 08:10 96 02/27/17 07:44 18 02/27/17 07:29 97 Nasal Cannula 2.00 02/27/17 06:11 83 02/27/17 05:12 109 02/27/17 04:46 86 02/27/17 04:20 97.4 106 128/85 91 02/27/17 03:24 112 02/27/17 03:12 Room Air 02/27/17 02:00 88 02/27/17 01:00 86 02/27/17 00:14 97.6 81 135/83 95 02/27/17 00:00 84 02/26/17 23:15 Room Air 02/26/17 23:00 111 02/26/17 22:00 96 02/26/17 21:37 Room Air 02/26/17 21:37 95 116/78 94 02/26/17 21:37 Room Air 02/26/17 21:00 88 02/26/17 20:06 21 02/26/17 20:00 96 02/26/17 19:00 111 02/26/17 18:00 88 02/26/17 17:00 120 02/26/17 16:00 100 02/26/17 15:41 93 Room Air 02/26/17 15:00 81 02/26/17 15:00 97.9 100 18 121/89 93 02/26/17 14:52 87 02/26/17 13:00 83 I/O 02/26/17 02/26/17 02/26/17 02/27/17 02/27/17 02/27/17 07:00 15:00 23:00 07:00 15:00 23:00 Intake Total 240 ml 650 ml 240 ml Output Total 530 ml 1300 ml 500 ml Balance -290 ml -650 ml -260 ml Intake Oral 240 ml 650 ml 240 ml IV Total 0 ml Output Urine Total 500 ml 1200 ml 500 ml Chest Tube Drainage Total 30 ml 80 ml Drainage Total 20 ml # Bowel Movements 1 Procedures Right Chest tube placement Objective Remarks GENERAL: This is a thinly built middle-aged white male who is alert and in no distress HEENT: Head normocephalic. Pupils reactive. Tongue is moist. Throat is clear. NECK: Supple. No bruits, no thyroid enlargement or lymphadenopathy. CHEST: Increased AP diameter with diminished breath sounds at the periphery. There is a chest tube in place in the right chest and wheezes scattered. bilaterally, prolonged expirations. HEART: The heart sounds are regular S1 and S2. No murmur. ABDOMEN: Soft, benign. No mass, no organomegaly. EXTREMITIES: No edema. Normal reflexes. NEUROLOGIC: No gross motor deficits. RECTAL: Exam is deferred. SKIN: Dry and cool. Assessment and Plan Assessment and Plan IMPRESSION 1. Spontaneous right pneumothorax, resolving. 2. Severe emphysema with chronic bronchitis 3. 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 Sub Q Emphysema Plan : 1. Chest X ray in am. 2. New Chest tube today 3. Nebs qid , duoneb. 4. IS at bedside qid 5. Levaquin 500 mg po q24h. 6. Labs in am Jesus Harvey MD February 27, 2017 12:49
[2017-02-27] MEDS ORDERED: SODIUM CHLORIDE 0.9% FLUSH 10 ML FLUSH IV FLUSH PRN (15:30)
[2017-02-27] MEDS ORDERED: ceFAZolin 2 GM PREMIX 50 ML IV SCH (15:30)
[2017-02-27] MEDS ORDERED: CEFAZOLIN INJ 500 MG in SODIUM CHLORIDE 0.9% IRR BTL 500 ML IRRIGATION SCH (15:30)
[2017-02-27] MEDS ORDERED: CHLORHEXIDINE GLUCONATE 4% SOLN 120 ML BTL TOPICAL SCH (15:30)
--- NOTE | 2017-02-27 15:38 | PD.CAR.PN ---
CVT Progress Note Subjective/Hospital Course: 02/23/17 Chest catheter "fell out" last night leading to recurrence of pneumothorax. Catheter replaced with resolution of pneumothorax. He has a small air leak this morning. 02/24/17 right pigtail chest tube in place, + air leak + subq emphysema chest right neck and arm on nasal cannula/ 3 liters CXR noted, resolution of PTX / small right lower lobe infiltrate 02/25 still has +1 air leak still has subqu emphysema chest right neck and arm, unchanged on nasal cannula 02/26 worsening right chest and arm subq emphysema CXR noted , no further PTX, intermittent +1 air leak 02/27 no change in air leak or subq emphysema pt will need right thoracoscopic exploration and pleurodesis in am procedures alternatives discussed with pt Objective: Vital Signs Date Time Temp Pulse Resp B/P Pulse Ox O2 Delivery O2 Flow Rate FiO2 02/27/17 15:03 102 02/27/17 15:03 94 Room Air 02/27/17 15:03 97.6 112 20 135/86 94 02/27/17 14:01 115 02/27/17 13:05 110 02/27/17 12:28 102 02/27/17 11:27 96 Nasal Cannula 2.00 02/27/17 11:27 101 02/27/17 11:27 97.7 94 20 91/63 96 02/27/17 10:00 115 02/27/17 09:07 93 02/27/17 08:57 18 02/27/17 08:10 97.5 89 20 138/83 96 02/27/17 08:10 96 Nasal Cannula 2.00 02/27/17 08:10 96 02/27/17 07:44 18 02/27/17 07:29 97 Nasal Cannula 2.00 02/27/17 06:11 83 02/27/17 05:12 109 02/27/17 04:46 86 02/27/17 04:20 97.4 106 128/85 91 02/27/17 03:24 112 02/27/17 03:12 Room Air 02/27/17 02:00 88 02/27/17 01:00 86 02/27/17 00:14 97.6 81 135/83 95 02/27/17 00:00 84 02/26/17 23:15 Room Air 02/26/17 23:00 111 02/26/17 22:00 96 02/26/17 21:37 Room Air 02/26/17 21:37 95 116/78 94 02/26/17 21:37 Room Air 02/26/17 21:00 88 02/26/17 20:06 21 02/26/17 20:00 96 02/26/17 19:00 111 02/26/17 18:00 88 02/26/17 17:00 120 02/26/17 16:00 100 02/26/17 15:41 93 Room Air Telemetry: NSR (1) Pneumothorax, right Plan: replacement of pigtail chest + air leak / + subq emphysema continue pulm toileting keep chest tube to suction / 10cm will need surgery in am right thoracoscopic exploration with pleurodesis still has extensive sub q emphysema no further ptx on cxr (2) S/P chest tube placement (3) COPD (chronic obstructive pulmonary disease) Plan: on levaquin and steroids Problem Qualifiers (1) COPD (chronic obstructive pulmonary disease): Qualified Code: J44.1 - Chronic obstructive pulmonary disease with acute exacerbation Catina Noel February 27, 2017 15:38
--- NOTE | 2017-02-27 15:46 | HHI.PR ---
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 02/22: Stable in his bedroom discussed with nurse Miss Root, minimal drainage for probable Chest tube removal if indicated by continuing education specialist, his subcutaneous Emphysema is increased now has it in his right arm his back to the lumbar area and anterior chest area. 02/23: Patient accidentally removed his chest tube this morning was placed again by operations support specialist, also had new evaluation by operations support specialist this afternoon for new clot in his Chest tube. 02/24: Seen in his bedroom discussed with patient and nurse, continue with subcutaneous emphysema. 02/25: Seen in his bedroom, discussed with continuing education specialist Doctor Wes he will clamp the chest tube tomorrow 02/26: Stable in his bedroom discussed with nurse continue with Subcutaneous Emphysema, continuing education specialist thinking in possible bigger chest tube if no improvement. 02/27: Patient in his bedroom, stable no complaint, discussed with continuing education specialist Doctor Wes and recommended to get a bigger tube to try to improve the patient if no improvement may need Surgery. no nausea, vomit or diarrhea. Objective Vital Signs Date Time Temp Pulse Resp B/P Pulse Ox O2 Delivery O2 Flow Rate FiO2 02/27/17 15:03 102 02/27/17 15:03 94 Room Air 02/27/17 15:03 97.6 112 20 135/86 94 02/27/17 14:01 115 02/27/17 13:05 110 02/27/17 12:28 102 02/27/17 11:27 96 Nasal Cannula 2.00 02/27/17 11:27 101 02/27/17 11:27 97.7 94 20 91/63 96 02/27/17 10:00 115 5/18/17 09:07 93 02/27/17 08:57 18 02/27/17 08:10 97.5 89 20 138/83 96 02/27/17 08:10 96 Nasal Cannula 2.00 02/27/17 08:10 96 02/27/17 07:44 18 02/27/17 07:29 97 Nasal Cannula 2.00 02/27/17 06:11 83 02/27/17 05:12 109 02/27/17 04:46 86 02/27/17 04:20 97.4 106 128/85 91 02/27/17 03:24 112 02/27/17 03:12 Room Air 02/27/17 02:00 88 02/27/17 01:00 86 02/27/17 00:14 97.6 81 135/83 95 02/27/17 00:00 84 02/26/17 23:15 Room Air 02/26/17 23:00 111 02/26/17 22:00 96 02/26/17 21:37 Room Air 02/26/17 21:37 95 116/78 94 02/26/17 21:37 Room Air 02/26/17 21:00 88 02/26/17 20:06 21 02/26/17 20:00 96 02/26/17 19:00 111 02/26/17 18:00 88 02/26/17 17:00 120 02/26/17 16:00 100 I/O 02/26/17 02/26/17 02/26/17 02/27/17 02/27/17 02/27/17 07:00 15:00 23:00 07:00 15:00 23:00 Intake Total 240 ml 650 ml 240 ml Output Total 530 ml 1300 ml 500 ml Balance -290 ml -650 ml -260 ml Intake Oral 240 ml 650 ml 240 ml IV Total 0 ml Output Urine Total 500 ml 1200 ml 500 ml Chest Tube Drainage Total 30 ml 80 ml Drainage Total 20 ml # Bowel Movements 1 Imaging Last Impressions Chest X-Ray 02/26/17 0900 Signed Impressions: Service Date/Time: Sunday, February 26, 2017 08:59 - CONCLUSION: Increasing subcutaneous emphysema. Jadiel Viramontes MD FACR Procedures Right Chest tube placement Other Results No new laboratory Objective Remarks GENERAL: No acute distress. SKIN: No rashes, ecchymoses or lesions. Cool and dry. HEAD: Atraumatic. Normocephalic. No temporal or scalp tenderness. EYES: Pupils equal round and reactive. Extraocular motions intact. No scleral icterus. No injection or drainage. ENT: Nose without bleeding. NECK: Trachea midline. No JVD or lymphadenopathy. Supple, nontender, no meningeal signs. CARDIOVASCULAR: Regular rate and rhythm without murmurs, gallops, or rubs. RESPIRATORY: Decreased breath sounds bilateral, Right chest tube in place, Subcutaneous Emphysema improving. GASTROINTESTINAL: Abdomen soft, non-tender, nondistended. No hepato-splenomegaly , or palpable masses. No guarding. MUSCULOSKELETAL: Extremities without clubbing, cyanosis, or edema. NEUROLOGICAL: Awake and alert. No focal deficits. Medications and IVs Current Medications Medications (Trade) Dose Ordered Sig/Pawel Route Start Time Stop Time Status Last Admin (NS Flush) 2 ml UNSCH PRN IV FLUSH 02/20/17 11:00 (NS Flush) 2 ml BID IV FLUSH 02/20/17 21:00 02/27/17 07:50 (Tylenol) 650 mg Q4H PRN PO 02/20/17 11:00 (Zofran Inj) 4 mg Q6H PRN IVP 02/20/17 11:00 (Dulcolax Supp) 10 mg DAILY PRN RECTAL 02/20/17 11:00 (Colace) 100 mg Q12HR PO 02/20/17 11:00 02/27/17 07:49 (Heparin Inj) 5,000 units Q8H SQ 02/20/17 12:00 02/27/17 12:36 (Narcan Inj) 0.4 mg UNSCH PRN IV 02/20/17 11:00 (Morphine Inj) 2 mg Q3H PRN IV PUSH 02/20/17 11:00 02/27/17 07:23 (Mucinex Er) 600 mg BID PO 02/20/17 21:00 02/27/17 07:49 (Habitrol 14 Mg Patch.24 Hr) 1 patch DAILY T-DERMAL 02/20/17 12:00 02/27/17 07:48 Miscellaneous Information 1 DAILY T-DERMAL 02/20/17 12:00 02/27/17 07:48 (Pepcid Inj) 20 mg Q12H IV PUSH 02/20/17 12:00 02/27/17 12:36 ([place] 5-325 Mg) 1 tab Q4H PRN PO 02/20/17 18:30 02/27/17 07:49 (Levaquin) 500 mg DAILY PO 02/22/17 09:00 02/27/17 07:49 (Lopressor) 12.5 mg Q12HR PO 02/24/17 17:00 02/27/17 07:49 (Deltasone) 10 mg DAILY PO 02/26/17 09:00 02/27/17 07:49 A/P Problem List: (1) Pneumothorax, right ICD Code: J93.9 (2) COPD (chronic obstructive pulmonary disease) ICD Code: J44.9 (3) S/P chest tube placement ICD Code: Z93.8 Assessment and Plan 1. Acute Pneumothorax probably related to Severe COPD/Emphysema status post Right Chest tube placement, continue Oxygen, Cardiac Monitoring, continuing education specialist following, Bronchodilator, Mucolytic and Incentive spirometry. added Levaquin by mouth today. today worsening subcutaneous emphysema, continuing education specialist asked to place a bigger tube and if no improvement may need Surgery with Pleurodesis. 2. COPD/Emphysema Mild expiratory wheezing, continue on Steroids by continuing education specialist. 3. Tobacco dependence strongly recommended to stop smoking 4. Status post Left upper Lobe resection no clear diagnosis, followed by continuing education specialist Doctor Bert Hapmton in [place] at [facility]. 5. Mild Leukocytosis worsening probable secondary to #1 started on Levaquin by continuing education specialist. 6. Mild Troponin elevation now trending down, probable related to #1. DVT prophylaxis with Heparin Gastric protection with Pepcid. As Always a pleasure to talk about this case with Instrument Setter Doctor Jason Harvey appreciated. Code Status Full Code. Discussed Condition With Patient all questions answered to the best of my abilities Discharge Planning Once cleared by continuing education specialist. Problem Qualifiers (1) COPD (chronic obstructive pulmonary disease): Qualified Code: J44.1 - Chronic obstructive pulmonary disease with acute exacerbation Tanvir Paz MD February 27, 2017 15:46
[2017-02-27 16:55] LABS: BLOOD, URINE NEG (NEG); GLUCOSE,URINE NEG (NEG); KETONE, URINE NEG (NEG); NITRITE,URINE NEG (NEG); URINE COLOR LIGHT-YELLOW (YELLW/STRAW)
[2017-02-27 16:55] LABS: HEMATOCRIT 41.7 % (39.0-51.0); MEAN CORPUSCULAR HEMOGLOBIN 28.2 PG (27.0-34.0); MEAN CORPUSCULAR HGB CONC 32.8 % (32.0-36.0); PLATELET COUNT 288 TH/MM3 (150-450); RED BLOOD COUNT 4.85 MIL/MM3 (4.50-5.90); RED CELL DISTRIBUTION WIDTH 15.3 % (11.6-17.2); REVIEW FLAG FINAL; WHITE BLOOD COUNT 9.2 TH/MM3 (4.0-11.0)
[2017-02-27 17:02] LABS: COMMENT (UR) CULT NOT INDICATED; CULTURE IF INDICATED CULT NOT INDICATED
[2017-02-27 17:03] LABS: BICARBONATE 27.5 MEQ/L (21.0-32.0); POTASSIUM 4.1 MEQ/L (3.5-5.1)
[2017-02-27] MEDS: MUPIROCIN 2% OINT 1 APPLIC/GM SYR NASAL SCH (19:56)
[2017-02-27] MEDS ORDERED: SODIUM CHLORIDE 0.9% FLUSH 10 ML FLUSH IV FLUSH SCH (21:00)
[2017-02-28] VITALS (31 sets, daily range): BP systolic 75–138; BP diastolic 53–97; PULSE 80–123; RESP 16–20; TEMP 97.7–98; O2SAT 92–98
[2017-02-28] MEDS ORDERED: CHLORHEXIDINE GLUCONATE 2 % 1 PACK (2 CLOTHS) TOPICAL PRN (00:15)
[2017-02-28] MEDS ORDERED: INSULIN HUMAN REGULAR 1,000 UNITS/10 ML VIAL SQ PRN (00:15)
[2017-02-28] MEDS ORDERED: POVIDONE IODINE 5% (ANTISEPSIS KIT) 4 APPLICATIONS EACH NARE PRN (00:15)
[2017-02-28] MEDS ORDERED: SODIUM CHLORID 0.9% 500 ML IV PRN (00:15)
[2017-02-28] MEDS ORDERED: LACTATED RINGER'S 1000 ML IV PRN (00:15)
[2017-02-28] MEDS: FAMOTIDINE 20 MG/2 ML VIAL IV PUSH SCH ×2 (00:30→16:52)
[2017-02-28] MEDS: ACETAMINOPHEN/HYDROcodone 325 MG/5 MG TAB PO PRN ×2 (00:33→08:44)
[2017-02-28] MEDS: RESP: ALBUTEROL 2.5 MG/IPRATROPIUM 0.5 MG NEB (SCH) NEB ×5 (03:22→19:26)
[2017-02-28] MEDS: HEPARIN SODIUM - SQ 10,000 UNITS/ML VIAL SQ SCH ×3 (04:23→21:27)
[2017-02-28] MEDS: LEVOFLOXACIN 500 MG TAB PO SCH (08:41)
[2017-02-28] MEDS: guaiFENesin E.R. 600 MG TAB PO SCH ×2 (08:41→21:27)
[2017-02-28] MEDS: METOPROLOL TARTRATE 25 MG TAB PO SCH ×2 (08:42→21:00)
[2017-02-28] MEDS: MUPIROCIN 2% OINT 1 APPLIC/GM SYR NASAL SCH ×2 (08:46→21:27)
[2017-02-28] MEDS: SODIUM CHLORIDE 0.9% FLUSH 10 ML FLUSH IV FLUSH SCH ×2 (08:47→21:28)
[2017-02-28] MEDS: REMOVE OLD PATCH T-DERMAL SCH (09:00)
[2017-02-28] MEDS ORDERED: FAMOTIDINE 20 MG/2 ML VIAL ONE (10:38)
[2017-02-28] MEDS ORDERED: MIDAZOLAM HCL 2 MG/2 ML VIAL ONE (10:38)
[2017-02-28] MEDS ORDERED: BUPIVACAINE HCL PF 0.5% 30 ML VIAL ONE (11:12)
[2017-02-28] MEDS ORDERED: PROPOFOL 200 MG/20 ML AMP IV ONE (12:21)
[2017-02-28] MEDS ORDERED: NORMOSOL R INJ 1,000 ML IV ONE (12:21)
[2017-02-28] MEDS ORDERED: PHENYLEPH/NS 1000 MCG/10 ML SYR IV ONE (12:21)
[2017-02-28] MEDS ORDERED: STERILE TALC 5 GM VIAL I-PLEURAL ONE (12:47)
[2017-02-28] MEDS ORDERED: MAGNESIUM HYDROXIDE SUSP 30 ML CUP PO PRN (13:00)
[2017-02-28] MEDS ORDERED: DEXTROSE 50% IN WATER 50 ML VIAL(D50) IV PRN (13:00)
[2017-02-28] MEDS ORDERED: oxyCODONE/ACETAMINOPHEN 5 MG/325 MG TAB PO PRN (13:00)
[2017-02-28] MEDS ORDERED: ACETAMINOPHEN 325 MG TAB PO PRN (13:00)
[2017-02-28] MEDS ORDERED: GLUCAGON 1 MG/ML VIAL IV PRN (13:00)
[2017-02-28] MEDS ORDERED: SODIUM CHLORIDE 0.9% FLUSH 10 ML FLUSH IV FLUSH PRN (13:00)
[2017-02-28] MEDS ORDERED: MISC INFORMATION OTHER ONE (13:00)
--- NOTE | 2017-02-28 13:04 | HHI.PR ---
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 had shortness of breath worsening, he was trying to use his inhaler but was told by his coordinator to get an ambulance he was brought in to ER and found Right Pneumothorax initially on BiPAP and then Chest tube placement. 02/22: Stable in his bedroom discussed with nurse Miss Root, minimal drainage for probable Chest tube removal if indicated by computer technical specialist, his subcutaneous Emphysema is increased now has it in his right arm his back to the lumbar area and anterior chest area. 02/23: Patient accidentally removed his chest tube this morning was placed again by contract administration specialist, also had new evaluation by contract administration specialist this afternoon for new clot in his Chest tube. 02/24: Seen in his bedroom discussed with patient and nurse, continue with subcutaneous emphysema. 02/25: Seen in his bedroom, discussed with computer technical specialist Doctor Wes he will clamp the chest tube tomorrow 02/26: Stable in his bedroom discussed with nurse continue with Subcutaneous Emphysema, computer technical specialist thinking in possible bigger chest tube if no improvement. 02/27: Patient in his bedroom, stable no complaint, discussed with computer technical specialist Doctor Wes and recommended to get a bigger tube to try to improve the patient if no improvement may need Surgery. 02/28: Seen him in the room in the presence of nurse and FACILITIES MECHANICAL DESIGN ENGINEER, Status post VATS, Pleurodesis, and bigger chest tube Placement, no nausea, vomit or diarrhea. Objective Vital Signs Date Time Temp Pulse Resp B/P Pulse Ox O2 Delivery O2 Flow Rate FiO2 02/28/17 09:00 98 02/28/17 08:30 97.7 98 16 138/97 92 02/28/17 08:30 98 02/28/17 08:30 92 Room Air 02/28/17 08:11 93 21 02/28/17 07:00 81 02/28/17 06:01 89 02/28/17 05:07 111 02/28/17 04:37 90 02/28/17 04:33 97.9 90 131/76 92 02/28/17 03:45 82 02/28/17 03:18 Nasal Cannula 2.00 21 02/28/17 02:00 90 02/28/17 01:00 88 02/28/17 00:00 96 02/27/17 23:22 Nasal Cannula 2.00 21 02/27/17 23:00 96 02/27/17 23:00 97.8 92 135/85 92 02/27/17 22:00 94 02/27/17 21:00 108 02/27/17 20:00 110 02/27/17 19:43 95 21 02/27/17 19:00 Nasal Cannula 2.00 21 02/27/17 19:00 118 02/27/17 19:00 98.0 113 113/77 93 02/27/17 18:36 18 02/27/17 18:03 96 02/27/17 18:02 18 02/27/17 17:05 118 02/27/17 16:04 103 02/27/17 15:03 102 02/27/17 15:03 94 Room Air 02/27/17 15:03 97.6 112 20 135/86 94 02/27/17 14:01 115 02/27/17 13:05 110 I/O 02/27/17 02/27/17 02/27/17 02/28/17 02/28/17 02/28/17 07:00 15:00 23:00 07:00 15:00 23:00 Intake Total 240 ml 600 ml 240 ml Output Total 500 ml 1755 ml 500 ml Balance -260 ml -1155 ml -260 ml Intake Oral 240 ml 600 ml 240 ml Output Urine Total 500 ml 1725 ml 500 ml Chest Tube Drainage Total 30 ml 0 ml # Bowel Movements 0 Result Diagram: 02/27/17 1607 02/27/17 1607 Imaging Last Impressions Chest X-Ray 02/26/17 09 Signed Impressions: Service Date/Time: Sunday, February 26, 2017 08:59 - CONCLUSION: Increasing subcutaneous emphysema. Jadiel Viramontes MD FACR Procedures Right Chest tube placement Other Results Laboratory Tests Test 02/27/17 02/27/17 02/27/17 15:51 16:07 16:37 Nasal Screen MRSA (PCR) MRSA DETECTED White Blood Count 9.2 TH/MM3 Red Blood Count 4.85 MIL/MM3 Hemoglobin 13.7 GM/DL Hematocrit 41.7 % Mean Corpuscular Volume 86.0 FL Mean Corpuscular Hemoglobin 28.2 PG Mean Corpuscular Hemoglobin 32.8 % Concent Red Cell Distribution Width 15.3 % Platelet Count 288 TH/MM3 Mean Platelet Volume 8.6 FL Sodium Level 140 MEQ/L Potassium Level 4.1 MEQ/L Chloride Level 105 MEQ/L Carbon Dioxide Level 27.5 MEQ/L Anion Gap 8 MEQ/L Blood Urea Nitrogen 10 MG/DL Creatinine 0.74 MG/DL Estimat Glomerular Filtration 106 ML/MIN Rate Random Glucose 117 MG/DL Calcium Level 9.3 MG/DL Blood Type O POSITIVE Antibody Screen NEGATIVE Urine Color LIGHT-YELLOW Urine Turbidity CLEAR Urine pH 8.0 Urine Specific [place] 1.007 Urine Protein NEG mg/dL Urine Glucose (UA) NEG mg/dL Urine Ketones NEG mg/dL Urine Occult Blood NEG Urine Nitrite NEG Urine Bilirubin NEG Urine Urobilinogen LESS THAN 2.0 MG/DL Urine Leukocyte Esterase NEG Urine RBC LESS THAN 1 /hpf Microscopic Urinalysis Comment CULT NOT INDICATED Objective Remarks GENERAL: No acute distress. SKIN: No rashes, ecchymoses or lesions. Cool and dry. HEAD: Atraumatic. Normocephalic. No temporal or scalp tenderness. EYES: Pupils equal round and reactive. Extraocular motions intact. No scleral icterus. No injection or drainage. ENT: Nose without bleeding. NECK: Trachea midline. No JVD or lymphadenopathy. Supple, nontender, no meningeal signs. CARDIOVASCULAR: Regular rate and rhythm without murmurs, gallops, or rubs. RESPIRATORY: Decreased breath sounds bilateral, Right chest tube in place, Subcutaneous Emphysema GASTROINTESTINAL: Abdomen soft, non-tender, nondistended. No hepato-splenomegaly , or palpable masses. No guarding. MUSCULOSKELETAL: Extremities without clubbing, cyanosis, or edema. NEUROLOGICAL: Awake and alert. No focal deficits. Medications and IVs Current Medications Medications (Trade) Dose Ordered Sig/Pawel Route Start Time Stop Time Status Last Admin (NS Flush) 2 ml UNSCH PRN IV FLUSH 02/20/17 11:00 (NS Flush) 2 ml BID IV FLUSH 02/20/17 21:00 02/28/17 08:47 (Tylenol) 650 mg Q4H PRN PO 02/20/17 11:00 (Zofran Inj) 4 mg Q6H PRN IVP 02/20/17 11:00 (Dulcolax Supp) 10 mg DAILY PRN RECTAL 02/20/17 11:00 (Colace) 100 mg Q12HR PO 02/20/17 11:00 02/27/17 19:57 (Heparin Inj) 5,000 units Q8H SQ 02/20/17 12:00 02/28/17 04:23 (Narcan Inj) 0.4 mg UNSCH PRN IV 02/20/17 11:00 (Morphine Inj) 2 mg Q3H PRN IV PUSH 02/20/17 11:00 02/27/17 17:54 (Mucinex Er) 600 mg BID PO 02/20/17 21:00 02/28/17 08:41 (Habitrol 14 Mg Patch.24 Hr) 1 patch DAILY T-DERMAL 02/20/17 12:00 02/27/17 07:48 Miscellaneous Information 1 DAILY T-DERMAL 02/20/17 12:00 02/27/17 07:48 (Pepcid Inj) 20 mg Q12H IV PUSH 02/20/17 12:00 02/28/17 00:30 ([place] 5-325 Mg) 1 tab Q4H PRN PO 02/20/17 18:30 02/28/17 08:44 (Levaquin) 500 mg DAILY PO 02/22/17 09:00 02/28/17 08:41 (Lopressor) 12.5 mg Q12HR PO 02/24/17 17:00 02/28/17 08:42 Mupirocin 1 applic 1 applic BID NASAL 02/27/17 21:00 03/09/17 20:59 02/28/17 08:46 Lactated Ringer's 1,000 ml @ 30 mls/hr Q24H PRN IV 02/28/17 00:15 03/03/17 00:14 (NS 500 ml Inj) 500 ml @ 30 mls/hr [id number] PRN IV 02/28/17 00:15 03/03/17 00:14 (Deltasone) 5 mg DAILY PO 03/01/17 09:00 (Pulmicort Respule Neb) 0.5 mg BID NEB 02/28/17 21:00 UNV (NS Flush) 2 ml BID IV FLUSH 02/28/17 21:00 UNV (NS Flush) 2 ml UNSCH PRN IV FLUSH 02/28/17 13:00 UNV Miscellaneous Information STAT ONCE OTHER 02/28/17 13:00 02/28/17 13:01 UNV (Ancef 1 Gm Premix) 50 ml @ 150 mls/hr Q8H IV 02/28/17 13:00 03/01/17 05:19 UNV (Surfak) 240 mg HS PO 02/28/17 21:00 UNV (Milk Of Magnesia Liq) 30 ml DAILY PRN PO 02/28/17 13:00 UNV (Tylenol) 650 mg Q4H PRN PO 02/28/17 13:00 UNV (NovoLOG SUPPLEMENTAL SCALE) Q6HR SQ 02/28/17 18:00 UNV Miscellaneous Information 1 ONCE ONCE OTHER 02/28/17 13:00 02/28/17 13:01 UNV (D50w (Vial) Inj) 50 ml UNSCH PRN IV 02/28/17 13:00 UNV (Glucagon Inj) 1 mg UNSCH PRN IV 02/28/17 13:00 UNV (Percocet 5-325 Mg) 1 tab Q3H PRN PO 02/28/17 13:00 UNV A/P Problem List: (1) Pneumothorax, right ICD Code: J93.9 (2) COPD (chronic obstructive pulmonary disease) ICD Code: J44.9 (3) S/P chest tube placement ICD Code: Z93.8 Assessment and Plan 1. Acute Pneumothorax probably related to Severe COPD/Emphysema status post Right Chest tube placement, continue Oxygen, Cardiac Monitoring, computer technical specialist following, Bronchodilator, Mucolytic and Incentive spirometry. continue Levaquin, status post VATS, Pleurodesis and bigger chest tube placement. 2. COPD/Emphysema Mild expiratory wheezing, continue on Steroids by computer technical specialist. 3. Tobacco dependence strongly recommended to stop smoking 4. Status post Left upper Lobe resection no clear diagnosis, followed by computer technical specialist Doctor Bert mitchell [place] at [facility]. 5. Mild Leukocytosis worsening probable secondary to #1 started on Levaquin by computer technical specialist. 6. Mild Troponin elevation now trending down, probable related to #1. DVT prophylaxis with Heparin Gastric protection with Pepcid. Code Status Full Code. Discussed Condition With Patient and Nurse all questions answered to the best of my abilities Discharge Planning Once cleared by computer technical specialist. Problem Qualifiers (1) COPD (chronic obstructive pulmonary disease): Qualified Code: J44.1 - Chronic obstructive pulmonary disease with acute exacerbation Tanvir Paz MD February 28, 2017 13:04 exacerbation Tanvir Paz MD February 28, 2017 13:04
--- NOTE | 2017-02-28 13:04 | PD.OP ---
cc: Jesus Harvey MD; Raisa Villanueva MD; Tanvir Paz MD Operative Report Date of Surgery: February 28, 2017 Preoperative Diagnosis: (1) Pneumothorax, right (2) COPD (chronic obstructive pulmonary disease) Postoperative Diagnosis: same Procedure: Right thoracoscopic exploration for persistent pneumothorax, talc pleuradesis, chest tube placement Anesthesia: Dr. Lee Surgeon: Raisa Villanueva Senior Water/Wastewater Engineer(s): Tucker Walker Operation and Findings: After adequate general anesthesia the patient was placed in the left lateral decubitus position and the right chest was prepped and draped in usual manner. A small posterior port incision was performed and electrocautery was used to obtain hemostasis and carry the dissection down through the fascia. A camera was inserted posteriorly initially and the anterior chest wall was visualized. No blebs were observed. A second anterior port was positioned at ~6th intercostal space. A talc pleuradesis was performed through both ports. A 32F chest tube was positioned through the anterior port under direct vision, and secured with a 0-silk suture. 0.5% Marcaine was used to infiltrate around both port areas. The subcutaneous tissues of the posterior port was approximated running 0 Vicryl suture and the skin was approximated using running 4-0 Monocryl subcuticular stitch. All sponge and history counts were correct at the close the procedure and the patient was transferred to the PACU for recovery purposes. Raisa Villanueva MD, FACS, FACC Raisa Villanueva MD February 28, 2017 13:04
[2017-02-28] MEDS ORDERED: Post-op Orders (for Pharmacy) MISC OTHER ONE (13:19)
[2017-02-28] MEDS ORDERED: *RESP: ALBUTEROL 2.5 MG/3 ML NEB (PRN) PERIprocedural Use ONLY NEB ONE (13:36)
[2017-02-28] MEDS ORDERED: *morphine SULFATE 8 MG/ML PERIprocedure ONLY ONE ×2 (13:55→14:07)
[2017-02-28] MEDS ORDERED: DO NOT ADM ANY ANTICOAGULANT DRUGS PRN (14:15)
[2017-02-28] MEDS ORDERED: SUGAMMADEX SODIUM 200 MG/2 ML VIAL IV PUSH ONE ×2 (14:35)
--- NOTE | 2017-02-28 15:33 | RADRPT ---
EXAM DATE/TIME: 02/28/2017 14:05 [facility] COMPARISON: CHEST SINGLE AP, February 26, 2017, 8:59. INDICATIONS : Post right thoracotomy. MEDICAL HISTORY : Chronic obstructive pulmonary disease. SURGICAL HISTORY : Lobe removed from left lobe 2016 ENCOUNTER: Subsequent ACUITY: 2 weeks PAIN SCORE: 6/10 LOCATION: Right chest FINDINGS: Large bore chest tube is in place on the right, high in the right apex. Extensive subcutaneous emphy sema is present. Heart and pulmonary vascularity are normal. There is no residual pneumothorax. CONCLUSION: Large bore chest tube in good position. Jadiel Viramontes MD FACR on February 28, 2017 at 15:19 Board Certified Radiologist. This report was verified electronically.
[2017-02-28] MEDS: NICOTINE 14 MG/24 HR PATCH T-DERMAL SCH (16:52)
[2017-02-28] MEDS: MORPHINE SULFATE 4 MG/ML INJ IV PUSH PRN (16:54)
[2017-02-28] MEDS: INSULIN ASPART SUPPLEMENTAL SCALE SQ SCH (18:00)
[2017-02-28] MEDS: RESP: BUDESONIDE 0.5 MG/2 ML NEB NEB SCH (19:26)
--- NOTE | 2017-02-28 19:38 | HHI.PR ---
Subjective Remarks Went for VATS thoracotomy and pleurodesis with resection of blebs.Has Subcutaneous Emphysema on the right. Chest tube is in . Small air leak. was SOB earlier. C/O pain Objective Vital Signs Date Time Temp Pulse Resp B/P Pulse Ox O2 Delivery O2 Flow Rate FiO2 02/28/17 19:30 95 Nasal Cannula 3.00 02/28/17 18:00 110 02/28/17 18:00 123 16 124/93 95 02/28/17 17:00 95 16 92/56 95 02/28/17 17:00 98 02/28/17 17:00 16 02/28/17 16:00 100 16 109/75 93 02/28/17 16:00 100 02/28/17 15:45 91 16 80/53 98 02/28/17 15:30 92 16 75/54 98 02/28/17 15:15 98 16 82/58 97 02/28/17 15:00 96 02/28/17 15:00 92 Room Air 02/28/17 15:00 98.0 90 16 93/58 98 02/28/17 14:35 88 26 125/70 97 Nasal Cannula 3 02/28/17 14:30 92 18 119/71 99 Nasal Cannula 3 02/28/17 14:15 91 21 133/67 97 Nasal Cannula 3 02/28/17 14:00 02/28/17 14:00 87 19 142/73 97 Nasal Cannula 3 02/28/17 13:45 91 29 131/75 95 Nasal Cannula 3 02/28/17 13:30 87 20 152/89 95 Nasal Cannula 3 02/28/17 13:26 97.9 87 20 147/76 95 Simple Mask 8 02/28/17 13:00 02/28/17 12:00 02/28/17 11:00 02/28/17 10:00 02/28/17 09:00 98 02/28/17 09:00 98 02/28/17 08:30 97.7 98 16 138/97 92 02/28/17 08:30 98 02/28/17 08:30 92 Room Air 02/28/17 08:11 93 21 02/28/17 08:00 88 02/28/17 07:00 81 02/28/17 06:01 89 02/28/17 05:07 111 02/28/17 04:37 90 02/28/17 04:33 97.9 90 131/76 92 02/28/17 03:45 82 02/28/17 03:18 Nasal Cannula 2.00 21 02/28/17 02:00 90 02/28/17 01:00 88 02/28/17 00:00 96 02/27/17 23:22 Nasal Cannula 2.00 21 02/27/17 23:00 96 02/27/17 23:00 97.8 92 135/85 92 02/27/17 22:00 94 02/27/17 21:00 108 02/27/17 20:00 110 02/27/17 19:43 95 21 I/O 02/27/17 02/27/17 02/27/17 02/28/17 02/28/17 02/28/17 07:00 15:00 23:00 07:00 15:00 23:00 Intake Total 240 ml 600 ml 240 ml 1500 ml 1300 ml Output Total 500 ml 1755 ml 500 ml 100 ml 520 ml Balance -260 ml -1155 ml -260 ml 1400 ml 780 ml Intake Oral 240 ml 600 ml 240 ml 300 ml IV Total 1000 ml Other 1500 ml Output Urine Total 500 ml 1725 ml 500 ml 500 ml Chest Tube Drainage Total 30 ml 0 ml 20 ml Estimated Blood Loss 100 ml # Bowel Movements 0 0 Result Diagram: 02/27/17 1607 02/27/17 1607 Procedures Right Chest tube placement Objective Remarks GENERAL: This is a thinly built middle-aged white male who is alert and in no distress HEENT: Head normocephalic. Pupils reactive. Tongue is moist. Throat is clear. NECK: Supple. No bruits, no thyroid enlargement or lymphadenopathy. CHEST: Increased AP diameter with diminished breath sounds at the periphery. There is a chest tube in place in the right chest and wheezes scattered.Occ crackles. bilaterally, prolonged expirations. HEART: The heart sounds are regular S1 and S2. No murmur. ABDOMEN: Soft, benign. No mass, no organomegaly. EXTREMITIES: No edema. Normal reflexes. NEUROLOGIC: No gross motor deficits. RECTAL: Exam is deferred. SKIN: Dry and cool. Assessment and Plan Assessment and Plan IMPRESSION 1. Spontaneous right pneumothorax, S/P VATS thoracotomy 2. Severe emphysema with chronic bronchitis 3. 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 Sub Q Emphysema Plan : 1. Chest X ray in am. 2. Chest tube to suction 3. Nebs qid , duoneb. 4. IS at bedside qid 5. Cont prednisone 5 mg daily 6. Labs in am 7. Morphine for pain 3 mg q4h prn Jesus Harvey MD February 28, 2017 19:38
[2017-02-28] MEDS ORDERED: ceFAZolin 1 GM PREMIX 50 ML IV SCH (20:00)
[2017-02-28] MEDS: ceFAZolin 1,000 MG/NS 100 ML IV SCH ×2 (21:26)
[2017-02-28] MEDS: DOCUSATE CALCIUM 240 MG CAP PO SCH (21:27)
[2017-02-28] MEDS ORDERED: SODIUM CHLOR 0.9% 250 ML INJ 250 ML IV ONE (21:45)
[2017-03-01] VITALS (32 sets, daily range): BP systolic 106–147; BP diastolic 69–93; PULSE 82–136; RESP 16–22; TEMP 97.6–98.4; O2SAT 92–96
[2017-03-01] MEDS: RESP: ALBUTEROL 2.5 MG/IPRATROPIUM 0.5 MG NEB (SCH) NEB ×4 (00:23→11:32)
[2017-03-01 04:58] LABS: BASOPHIL # 0.1 TH/MM3 (0-0.2); BASOPHIL % 0.4 % (0.0-2.0); EOSINOPHIL # 0.3 TH/MM3 (0-0.4); EOSINOPHIL % 2.1 % (0.0-4.0); HEMATOCRIT 35.6 % (39.0-51.0); HEMO FLAGS DIFF FINAL; LYMPH % 10.5 % (9.0-44.0); LYMPHOCYTE # 1.3 TH/MM3 (1.0-4.8); MEAN CELL VOLUME 85.9 FL (80.0-100.0); MEAN CORPUSCULAR HEMOGLOBIN 28.4 PG (27.0-34.0); MEAN CORPUSCULAR HGB CONC 33.1 % (32.0-36.0); MONO % 13.9 % (0.0-8.0); NEUT % 73.1 % (16.0-70.0); PLATELET COUNT 261 TH/MM3 (150-450); RED BLOOD COUNT 4.14 MIL/MM3 (4.50-5.90); RED CELL DISTRIBUTION WIDTH 14.8 % (11.6-17.2); WHITE BLOOD COUNT 12.3 TH/MM3 (4.0-11.0)
[2017-03-01 05:14] LABS: BICARBONATE 26.7 MEQ/L (21.0-32.0)
[2017-03-01] MEDS: INSULIN ASPART SUPPLEMENTAL SCALE SQ SCH ×4 (06:00→17:32)
[2017-03-01] MEDS: ceFAZolin 1,000 MG/NS 100 ML IV SCH ×4 (06:04→12:02)
--- NOTE | 2017-03-01 06:04 | RADRPT ---
EXAM DATE/TIME: 03/01/2017 04:51 [facility] COMPARISON: CHEST SINGLE AP, February 28, 2017, 14:05. INDICATIONS : Shortness of breath, possible pulmonary disease. MEDICAL HISTORY : Chronic obstructive pulmonary disease. SURGICAL HISTORY : Lobectomy. ENCOUNTER: Subsequent ACUITY: 2 weeks PAIN SCORE: 5/10 LOCATION: Right chest FINDINGS: Small caliber right chest tube present. Extensive subcutaneous air noted. No significant pneumothorax identified. Mild basilar airspace disease similar to prior exam. CONCLUSION: 1. Right chest tube present with extensive subcutaneous air. Minimal basilar airspace disease. No sig nificant change. Bebo Morales MD on March 01, 2017 at 6:01 Board Certified Radiologist. This report was verified electronically.
[2017-03-01] MEDS: HEPARIN SODIUM - SQ 10,000 UNITS/ML VIAL SQ SCH ×3 (06:05→21:16)
[2017-03-01] MEDS: RESP: BUDESONIDE 0.5 MG/2 ML NEB NEB SCH ×2 (08:00→19:31)
[2017-03-01] MEDS: SODIUM CHLORIDE 0.9% FLUSH 10 ML FLUSH IV FLUSH SCH ×2 (08:46→21:17)
[2017-03-01] MEDS: MUPIROCIN 2% OINT 1 APPLIC/GM SYR NASAL SCH ×2 (08:47→21:17)
[2017-03-01] MEDS: guaiFENesin E.R. 600 MG TAB PO SCH ×2 (08:47→21:17)
[2017-03-01] MEDS: LEVOFLOXACIN 500 MG TAB PO SCH (08:47)
[2017-03-01] MEDS: predniSONE 5 MG TAB PO SCH (08:47)
[2017-03-01] MEDS: METOPROLOL TARTRATE 25 MG TAB PO SCH ×2 (08:48→21:17)
[2017-03-01] MEDS: REMOVE OLD PATCH T-DERMAL SCH (08:49)
[2017-03-01] MEDS: NICOTINE 14 MG/24 HR PATCH T-DERMAL SCH (08:49)
[2017-03-01] MEDS: ACETAMINOPHEN/HYDROcodone 325 MG/5 MG TAB PO PRN ×4 (10:54→21:17)
[2017-03-01] MEDS: FAMOTIDINE 20 MG/2 ML VIAL IV PUSH SCH (12:00)
--- NOTE | 2017-03-01 12:44 | HHI.PR ---
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 had shortness of breath worsening, he was trying to use his inhaler but was told by his coordinator to get an ambulance he was brought in to ER and found Right Pneumothorax initially on BiPAP and then Chest tube placement. 02/22: Stable in his bedroom discussed with nurse Miss Root, minimal drainage for probable Chest tube removal if indicated by regulatory law specialist, his subcutaneous Emphysema is increased now has it in his right arm his back to the lumbar area and anterior chest area. 02/23: Patient accidentally removed his chest tube this morning was placed again by metallurgical specialist, also had new evaluation by metallurgical specialist this afternoon for new clot in his Chest tube. 02/24: Seen in his bedroom discussed with patient and nurse, continue with subcutaneous emphysema. 02/25: Seen in his bedroom, discussed with regulatory law specialist Doctor Wes he will clamp the chest tube tomorrow 02/26: Stable in his bedroom discussed with nurse continue with Subcutaneous Emphysema, regulatory law specialist thinking in possible bigger chest tube if no improvement. 02/27: Patient in his bedroom, stable no complaint, discussed with regulatory law specialist Doctor Wes and recommended to get a bigger tube to try to improve the patient if no improvement may need Surgery. 02/28: Seen him in the room in the presence of nurse and SPOT WASHER, Status post VATS, Pleurodesis, and bigger chest tube placement. 03/01: Patient stable in the presence of nurse, Improving subcutaneous emphysema , no nausea, vomit or diarrhea. Objective Vital Signs Date Time Temp Pulse Resp B/P Pulse Ox O2 Delivery O2 Flow Rate FiO2 03/01/17 08:34 98.1 100 18 127/76 95 03/01/17 08:17 95 Nasal Cannula 3.00 03/01/17 08:02 95 03/01/17 07:15 101 03/01/17 07:15 18 03/01/17 06:19 129 03/01/17 06:00 100 03/01/17 05:00 89 03/01/17 04:00 92 03/01/17 03:56 96 Nasal Cannula 3.00 03/01/17 03:24 96 Nasal Cannula 2.00 03/01/17 03:00 98 03/01/17 03:00 98.4 87 16 116/70 96 03/01/17 02:00 96 16 141/87 94 03/01/17 02:00 100 03/01/17 01:00 107 03/01/17 01:00 107 20 117/69 96 03/01/17 00:25 92 Nasal Cannula 3.00 03/01/17 00:00 89 20 113/75 96 03/01/17 00:00 96 Nasal Cannula 2.00 03/01/17 00:00 89 02/28/17 23:00 98.0 89 16 114/73 96 02/28/17 23:00 88 02/28/17 22:00 90 20 138/88 98 02/28/17 22:00 98 02/28/17 21:00 80 20 87/60 96 02/28/17 21:00 112 02/28/17 20:00 99 02/28/17 20:00 98 16 95/67 96 02/28/17 20:00 96 Nasal Cannula 2.00 02/28/17 19:30 95 Nasal Cannula 3.00 02/28/17 19:00 99 02/28/17 19:00 98.0 98 16 124/93 96 02/28/17 18:00 110 02/28/17 18:00 123 16 124/93 95 02/28/17 17:00 95 16 92/56 95 02/28/17 17:00 98 02/28/17 17:00 16 02/28/17 16:00 100 16 109/75 93 02/28/17 16:00 100 02/28/17 15:45 91 16 80/53 98 02/28/17 15:30 92 16 75/54 98 02/28/17 15:15 98 16 82/58 97 02/28/17 15:00 96 02/28/17 15:00 92 Room Air 02/28/17 15:00 98.0 90 16 93/58 98 02/28/17 14:35 88 26 125/70 97 Nasal Cannula 3 02/28/17 14:30 92 18 119/71 99 Nasal Cannula 3 02/28/17 14:15 91 21 133/67 97 Nasal Cannula 3 02/28/17 14:00 02/28/17 14:00 87 19 142/73 97 Nasal Cannula 3 02/28/17 13:45 91 29 131/75 95 Nasal Cannula 3 02/28/17 13:30 87 20 152/89 95 Nasal Cannula 3 02/28/17 13:26 97.9 87 20 147/76 95 Simple Mask 8 02/28/17 13:00 I/O 02/28/17 02/28/17 02/28/17 03/01/17 03/01/17 03/01/17 06:59 14:59 22:59 06:59 14:59 22:59 Intake Total 240 ml 1500 ml 1300 ml 690 ml Output Total 500 ml 100 ml 520 ml 576 ml Balance -260 ml 1400 ml 780 ml 114 ml Intake Oral 240 ml 300 ml 240 ml IV Total 1000 ml 450 ml Other 1500 ml Output Urine Total 500 ml 500 ml 550 ml Chest Tube Drainage Total 0 ml 20 ml 26 ml Estimated Blood Loss 100 ml # Bowel Movements 0 Result Diagram: 03/01/17 0325 03/01/17 0425 Imaging Last Impressions Chest X-Ray 03/01/17 0600 Signed Impressions: Service Date/Time: Friday, March 01, 2017 04:51 - CONCLUSION: 1. Right chest tube present with extensive subcutaneous air. Minimal basilar airspace disease. No significant change. Bebo Morales MD Procedures Right Chest tube placement Status post VATS and new bigger Chest tube replaced. Other Results Laboratory Tests Test 02/27/17 02/27/17 02/27/17 03/01/17 15:51 16:07 16:37 03:25 Nasal Screen MRSA (PCR) MRSA DETECTED Blood Type O POSITIVE Antibody Screen NEGATIVE Urine Color LIGHT-YELLOW Urine Turbidity CLEAR Urine pH 8.0 Urine Specific [place] 1.007 Urine Protein NEG mg/dL Urine Glucose (UA) NEG mg/dL Urine Ketones NEG mg/dL Urine Occult Blood NEG Urine Nitrite NEG Urine Bilirubin NEG Urine Urobilinogen LESS THAN 2.0 MG/DL Urine Leukocyte Esterase NEG Urine RBC LESS THAN 1 /hpf Microscopic Urinalysis Comment CULT NOT INDICATED White Blood Count 12.3 TH/MM3 Red Blood Count 4.14 MIL/MM3 Hemoglobin 11.8 GM/DL Hematocrit 35.6 % Mean Corpuscular Volume 85.9 FL Mean Corpuscular Hemoglobin 28.4 PG Mean Corpuscular Hemoglobin 33.1 % Concent Red Cell Distribution Width 14.8 % Platelet Count 261 TH/MM3 Mean Platelet Volume 8.2 FL Neutrophils (%) (Auto) 73.1 % Lymphocytes (%) (Auto) 10.5 % Monocytes (%) (Auto) 13.9 % Eosinophils (%) (Auto) 2.1 % Basophils (%) (Auto) 0.4 % Neutrophils # (Auto) 9.0 TH/MM3 Lymphocytes # (Auto) 1.3 TH/MM3 Monocytes # (Auto) 1.7 TH/MM3 Eosinophils # (Auto) 0.3 TH/MM3 Basophils # (Auto) 0.1 TH/MM3 CBC Comment DIFF FINAL Differential Comment Test 03/01/17 04:25 Sodium Level 139 MEQ/L Potassium Level 4.0 MEQ/L Chloride Level 103 MEQ/L Carbon Dioxide Level 26.7 MEQ/L Anion Gap 9 MEQ/L Blood Urea Nitrogen 11 MG/DL Creatinine 0.57 MG/DL Estimat Glomerular Filtration 144 ML/MIN Rate Random Glucose 106 MG/DL Calcium Level 8.8 MG/DL Objective Remarks GENERAL: No acute distress. SKIN: No rashes, ecchymoses or lesions. Cool and dry. HEAD: Atraumatic. Normocephalic. No temporal or scalp tenderness. EYES: Pupils equal round and reactive. Extraocular motions intact. No scleral icterus. No injection or drainage. ENT: Nose without bleeding. NECK: Trachea midline. No JVD or lymphadenopathy. Supple, nontender, no meningeal signs. CARDIOVASCULAR: Regular rate and rhythm without murmurs, gallops, or rubs. RESPIRATORY: Decreased breath sounds bilateral, Right chest tube in place, Subcutaneous Emphysema GASTROINTESTINAL: Abdomen soft, non-tender, nondistended. No hepato-splenomegaly , or palpable masses. No guarding. MUSCULOSKELETAL: Extremities without clubbing, cyanosis, or edema. NEUROLOGICAL: Awake and alert. No focal deficits. Medications and IVs Current Medications Medications (Trade) Dose Ordered Sig/Pawel Route Start Time Stop Time Status Last Admin (Zofran Inj) 4 mg Q6H PRN IVP 02/20/17 11:00 (Dulcolax Supp) 10 mg DAILY PRN RECTAL 02/20/17 11:00 (Heparin Inj) 5,000 units Q8H SQ 02/20/17 12:00 03/01/17 12:02 (Narcan Inj) 0.4 mg UNSCH PRN IV 02/20/17 11:00 (Mucinex Er) 600 mg BID PO 02/20/17 21:00 03/01/17 08:47 (Habitrol 14 Mg Patch.24 Hr) 1 patch DAILY T-DERMAL 02/20/17 12:00 03/01/17 08:49 Miscellaneous Information 1 DAILY T-DERMAL 02/20/17 12:00 03/01/17 08:49 (Pepcid Inj) 20 mg Q12H IV PUSH 02/20/17 12:00 03/01/17 12:00 (Levaquin) 500 mg DAILY PO 02/22/17 09:00 03/01/17 08:47 (Lopressor) 12.5 mg Q12HR PO 02/24/17 17:00 03/01/17 08:48 Mupirocin 1 applic 1 applic BID NASAL 02/27/17 21:00 03/09/17 20:59 03/01/17 08:47 Lactated Ringer's 1,000 ml @ 30 mls/hr Q24H PRN IV 02/28/17 00:15 03/03/17 00:14 (NS 500 ml Inj) 500 ml @ 30 mls/hr [id number] PRN IV 02/28/17 00:15 03/03/17 00:14 (Deltasone) 5 mg DAILY PO 03/01/17 09:00 03/01/17 08:47 (NS Flush) 2 ml BID IV FLUSH 02/28/17 21:00 03/01/17 08:46 (NS Flush) 2 ml UNSCH PRN IV FLUSH 02/28/17 13:00 (Surfak) 240 mg HS PO 02/28/17 21:00 02/28/17 21:27 (Milk Of Magnesia Liq) 30 ml DAILY PRN PO 02/28/17 13:00 (Tylenol) 650 mg Q4H PRN PO 02/28/17 13:00 03/01/17 06:07 (NovoLOG SUPPLEMENTAL SCALE) 1 Q6HR SQ 02/28/17 18:00 (D50w (Vial) Inj) 50 ml UNSCH PRN IV 02/28/17 13:00 (Glucagon Inj) 1 mg UNSCH PRN IV 02/28/17 13:00 Miscellaneous Information ALL NURSING DEPARTME... UNSCH PRN .XX 02/28/17 14:15 03/01/17 14:14 ([place] 5-325 Mg) 1 tab Q4H PRN PO 03/01/17 11:00 03/01/17 11:52 ([place] 5-325 Mg) 2 tab Q4H PRN PO 03/01/17 11:00 A/P Problem List: (1) Pneumothorax, right ICD Code: J93.9 (2) COPD (chronic obstructive pulmonary disease) ICD Code: J44.9 (3) S/P chest tube placement ICD Code: Z93.8 Assessment and Plan 1. Acute Pneumothorax probably related to Severe COPD/Emphysema status post Right Chest tube placement, continue Oxygen, Cardiac Monitoring, regulatory law specialist following, Bronchodilator, Mucolytic and Incentive spirometry. continue Levaquin, status post VATS, Pleurodesis and bigger chest tube placement. Improving Subcutaneous emphysema. 2. COPD/Emphysema Mild expiratory wheezing, continue on Steroids by regulatory law specialist. 3. Tobacco dependence strongly recommended to stop smoking 4. Status post Left upper Lobe resection no clear diagnosis, followed by regulatory law specialist Doctor Bert Hampton in [place] at [facility]. 5. Mild Leukocytosis worsening probable secondary to #1 started on Levaquin by regulatory law specialist. 6. Mild Troponin elevation now trending down, probable related to #1. DVT prophylaxis with Heparin Gastric protection with Pepcid. Code Status Full Code. Discussed Condition With Patient and Nurse all questions answered to the best of my abilities Discharge Planning Once cleared by regulatory law specialist. Problem Qualifiers (1) COPD (chronic obstructive pulmonary disease): Qualified Code: J44.1 - Chronic obstructive pulmonary disease with acute exacerbation Tanvir Paz MD March 01, 2017 12:44
--- NOTE | 2017-03-01 16:29 | HHI.PR ---
Subjective Remarks NO SOB CHEST TUBE IN PLACE SMALL LEAK Objective GENERAL: SKIN: Warm and dry. HEAD: Atraumatic. Normocephalic. EYES: Pupils equal and round. No scleral icterus. No injection or drainage. ENT: No nasal bleeding or discharge. Mucous membranes pink and moist. NECK: Trachea midline. No JVD. CARDIOVASCULAR: Regular rate and rhythm. RESPIRATORY: No accessory muscle use. Clear to auscultation. Breath sounds equal bilaterally. GASTROINTESTINAL: Abdomen soft, non-tender, nondistended. Hepatic and splenic margins not palpable. MUSCULOSKELETAL: Extremities without clubbing, cyanosis, or edema. No obvious deformities. NEUROLOGICAL: Awake and alert. No obvious cranial nerve deficits. Motor grossly within normal limits. Five out of 5 muscle strength in the arms and legs. Normal speech. PSYCHIATRIC: Appropriate mood and affect; insight and judgment normal. Vital Signs Date Time Temp Pulse Resp B/P Pulse Ox O2 Delivery O2 Flow Rate FiO2 03/01/17 15:16 94 Nasal Cannula 3.00 03/01/17 15:16 97 03/01/17 14:00 92 03/01/17 13:41 98 03/01/17 13:00 98 03/01/17 12:00 98 03/01/17 12:00 95 Nasal Cannula 3.00 03/01/17 11:54 16 03/01/17 11:00 96 03/01/17 10:00 94 03/01/17 09:00 136 03/01/17 08:34 98.1 100 18 127/76 95 03/01/17 08:17 95 Nasal Cannula 3.00 03/01/17 08:02 95 03/01/17 07:15 101 03/01/17 07:15 18 03/01/17 07:15 95 Nasal Cannula 3.00 03/01/17 06:19 129 03/01/17 06:00 100 03/01/17 05:00 89 03/01/17 04:00 92 03/01/17 03:56 96 Nasal Cannula 3.00 03/01/17 03:24 96 Nasal Cannula 2.00 03/01/17 03:00 98 03/01/17 03:00 98.4 87 16 116/70 96 03/01/17 02:00 96 16 141/87 94 03/01/17 02:00 100 03/01/17 01:00 107 03/01/17 01:00 107 20 117/69 96 03/01/17 00:25 92 Nasal Cannula 3.00 03/01/17 00:00 89 20 113/75 96 03/01/17 00:00 96 Nasal Cannula 2.00 03/01/17 00:00 89 02/28/17 23:00 98.0 89 16 114/73 96 02/28/17 23:00 88 02/28/17 22:00 90 20 138/88 98 02/28/17 22:00 98 02/28/17 21:00 80 20 87/60 96 02/28/17 21:00 112 02/28/17 20:00 99 02/28/17 20:00 98 16 95/67 96 02/28/17 20:00 96 Nasal Cannula 2.00 02/28/17 19:30 95 Nasal Cannula 3.00 02/28/17 19:00 99 02/28/17 19:00 98.0 98 16 124/93 96 02/28/17 18:00 110 02/28/17 18:00 123 16 124/93 95 02/28/17 17:00 95 16 92/56 95 02/28/17 17:00 98 02/28/17 17:00 16 I/O 02/28/17 02/28/17 02/28/17 03/01/17 03/01/17 03/01/17 06:59 14:59 22:59 06:59 14:59 22:59 Intake Total 240 ml 1500 ml 1300 ml 690 ml Output Total 500 ml 100 ml 520 ml 576 ml Balance -260 ml 1400 ml 780 ml 114 ml Intake Oral 240 ml 300 ml 240 ml IV Total 1000 ml 450 ml Other 1500 ml Output Urine Total 500 ml 500 ml 550 ml Chest Tube Drainage Total 0 ml 20 ml 26 ml Estimated Blood Loss 100 ml # Bowel Movements 0 Result Diagram: 03/01/17 0325 03/01/17 0425 Procedures Right Chest tube placement Status post VATS and new bigger Chest tube replaced. Objective Remarks GENERAL: SKIN: Warm and dry. HEAD: Atraumatic. Normocephalic. EYES: Pupils equal and round. No scleral icterus. No injection or drainage. ENT: No nasal bleeding or discharge. Mucous membranes pink and moist. NECK: Trachea midline. No JVD. CARDIOVASCULAR: Regular rate and rhythm. RESPIRATORY: No accessory muscle use. Clear to auscultation. Breath sounds equal bilaterally. GASTROINTESTINAL: Abdomen soft, non-tender, nondistended. Hepatic and splenic margins not palpable. MUSCULOSKELETAL: Extremities without clubbing, cyanosis, or edema. No obvious deformities. NEUROLOGICAL: Awake and alert. No obvious cranial nerve deficits. Motor grossly within normal limits. Five out of 5 muscle strength in the arms and legs. Normal speech. PSYCHIATRIC: Appropriate mood and affect; insight and judgment normal. Assessment and Plan Assessment and Plan IMPRESSION PNEUMOTHORAX CT IN PLACE IMPRESSION REMOVE CT WHEN POSSIBLE Walter Watson MD March 01, 2017 16:29
[2017-03-01] MEDS: RESP: ALBUTEROL 2.5 MG/3 ML NEB (PRN) NEB (19:31)
[2017-03-01] MEDS: DOCUSATE CALCIUM 240 MG CAP PO SCH (21:17)
[2017-03-02] VITALS (26 sets, daily range): BP systolic 140–155; BP diastolic 86–98; PULSE 72–122; RESP 20–22; TEMP 97.3–98.2; O2SAT 93–98
[2017-03-02] MEDS: FAMOTIDINE 20 MG/2 ML VIAL IV PUSH SCH ×3 (01:15→23:57)
[2017-03-02] MEDS: ACETAMINOPHEN/HYDROcodone 325 MG/5 MG TAB PO PRN ×6 (01:21→21:57)
[2017-03-02] MEDS: HEPARIN SODIUM - SQ 10,000 UNITS/ML VIAL SQ SCH ×3 (05:09→20:58)
[2017-03-02] MEDS: INSULIN ASPART SUPPLEMENTAL SCALE SQ SCH ×4 (05:10→17:28)
[2017-03-02] MEDS: RESP: BUDESONIDE 0.5 MG/2 ML NEB NEB SCH ×2 (07:36→19:27)
[2017-03-02] MEDS: REMOVE OLD PATCH T-DERMAL SCH (09:00)
[2017-03-02] MEDS: SODIUM CHLORIDE 0.9% FLUSH 10 ML FLUSH IV FLUSH SCH ×2 (09:00→20:59)
[2017-03-02] MEDS: guaiFENesin E.R. 600 MG TAB PO SCH ×2 (09:17→20:58)
[2017-03-02] MEDS: METOPROLOL TARTRATE 25 MG TAB PO SCH ×2 (09:17→20:58)
[2017-03-02] MEDS: NICOTINE 14 MG/24 HR PATCH T-DERMAL SCH (09:17)
[2017-03-02] MEDS: predniSONE 5 MG TAB PO SCH (09:18)
[2017-03-02] MEDS: MUPIROCIN 2% OINT 1 APPLIC/GM SYR NASAL SCH ×2 (09:18→20:58)
[2017-03-02] MEDS: LEVOFLOXACIN 500 MG TAB PO SCH (09:18)
--- NOTE | 2017-03-02 09:33 | PD.CAR.PN ---
CVT Progress Note Subjective/Hospital Course: 02/23/17 Chest catheter "fell out" last night leading to recurrence of pneumothorax. Catheter replaced with resolution of pneumothorax. He has a small air leak this morning. 02/24/17 right pigtail chest tube in place, + air leak + subq emphysema chest right neck and arm on nasal cannula/ 3 liters CXR noted, resolution of PTX / small right lower lobe infiltrate 02/25 still has +1 air leak still has subqu emphysema chest right neck and arm, unchanged on nasal cannula 02/26 worsening right chest and arm subq emphysema CXR noted , no further PTX, intermittent +1 air leak 02/27 no change in air leak or subq emphysema pt will need right thoracoscopic exploration and pleurodesis in am procedures alternatives discussed with pt 03/01 Doing well Reportedly had a small air-leak No discernible leak this am Possibly remove CT tomorrow Objective: Vital Signs Date Time Temp Pulse Resp B/P Pulse Ox O2 Delivery O2 Flow Rate FiO2 03/02/17 05:00 112 03/02/17 04:00 73 03/02/17 04:00 97.3 112 20 152/98 96 03/02/17 04:00 Nasal Cannula 2.00 Humidified 03/02/17 03:00 72 03/02/17 02:00 74 03/02/17 01:00 86 03/02/17 00:00 98.2 115 22 143/90 95 03/02/17 00:00 Nasal Cannula 2.00 Humidified 03/02/17 00:00 103 03/01/17 23:00 82 03/01/17 22:00 90 03/01/17 21:00 122 03/01/17 20:00 98 03/01/17 20:00 Nasal Cannula 2.00 Humidified 03/01/17 20:00 97.6 128 22 147/93 96 03/01/17 19:32 94 Nasal Cannula 2.00 03/01/17 19:00 122 03/01/17 18:26 83 03/01/17 17:34 103 03/01/17 16:48 14 03/01/17 15:30 98.4 98 16 106/74 94 03/01/17 15:16 94 Nasal Cannula 3.00 03/01/17 15:16 97 03/01/17 14:00 92 03/01/17 13:41 98 03/01/17 13:00 98 03/01/17 12:00 98 03/01/17 12:00 95 Nasal Cannula 3.00 03/01/17 11:54 16 03/01/17 11:50 98.0 98 18 129/84 95 03/01/17 11:00 96 03/01/17 10:00 94 Result Diagram: 03/01/17 0325 03/01/17 0425 (1) Pneumothorax, right Plan: replacement of pigtail chest + air leak / + subq emphysema continue pulm toileting keep chest tube to suction / 10cm will need surgery in am right thoracoscopic exploration with pleurodesis still has extensive sub q emphysema no further ptx on cxr (2) S/P chest tube placement (3) COPD (chronic obstructive pulmonary disease) Plan: on levaquin and steroids Problem Qualifiers (1) COPD (chronic obstructive pulmonary disease): Qualified Code: J44.1 - Chronic obstructive pulmonary disease with acute exacerbation Indra Self MD March 02, 2017 09:33
--- NOTE | 2017-03-02 11:48 | HHI.PR ---
Subjective Remarks Patient seen and examined this am. Intermittent tachycardia. Feels some pain at the chest tube side. On 2 L of NC. Tolerating diet. Using incentive spirometer. Anxious to go home and to know when he can go back to work. Objective Vital Signs Date Time Temp Pulse Resp B/P Pulse Ox O2 Delivery O2 Flow Rate FiO2 03/02/17 11:44 20 03/02/17 08:00 97.4 113 20 140/92 94 03/02/17 07:45 98 Nasal Cannula 2.00 03/02/17 07:00 94 Nasal Cannula 2.00 Humidified 03/02/17 05:00 112 03/02/17 04:00 73 03/02/17 04:00 97.3 112 20 152/98 96 03/02/17 04:00 Nasal Cannula 2.00 Humidified 03/02/17 03:00 72 03/02/17 02:00 74 03/02/17 01:00 86 03/02/17 00:00 98.2 115 22 143/90 95 03/02/17 00:00 Nasal Cannula 2.00 Humidified 03/02/17 00:00 103 03/01/17 23:00 82 03/01/17 22:00 90 03/01/17 21:00 122 03/01/17 20:00 98 03/01/17 20:00 Nasal Cannula 2.00 Humidified 03/01/17 20:00 97.6 128 22 147/93 96 03/01/17 19:32 94 Nasal Cannula 2.00 03/01/17 19:00 122 03/01/17 18:26 83 03/01/17 17:34 103 03/01/17 15:30 98.4 98 16 106/74 94 03/01/17 15:16 94 Nasal Cannula 3.00 03/01/17 15:16 97 03/01/17 14:00 92 03/01/17 13:41 98 03/01/17 13:00 98 03/01/17 12:00 98 03/01/17 12:00 95 Nasal Cannula 3.00 03/01/17 11:54 16 03/01/17 11:50 98.0 98 18 129/84 95 I/O 5/20/17 5/20/17 5/20/17 5/21/17 5/21/17 5/21/17 07:00 15:00 23:00 07:00 15:00 23:00 Intake Total 690 ml 1180 ml 360 ml Output Total 576 ml 975 ml 925 ml Balance 114 ml 205 ml -565 ml Intake Oral 240 ml 1080 ml 360 ml IV Total 450 ml 100 ml 0 ml Output Urine Total 550 ml 975 ml 925 ml Chest Tube Drainage Total 26 ml 0 ml # Bowel Movements 0 0 Result Diagram: 03/01/17 0325 03/01/17 0425 Imaging Last Impressions Chest X-Ray 03/01/17 0600 Signed Impressions: Service Date/Time: Wednesday, March 01, 2017 04:51 - CONCLUSION: 1. Right chest tube present with extensive subcutaneous air. Minimal basilar airspace disease. No significant change. Bebo Morales MD Procedures Right Chest tube placement Status post VATS and new bigger Chest tube replaced. Objective Remarks GENERAL: No acute distress. SKIN: No rashes, ecchymoses or lesions. Cool and dry. HEAD: Atraumatic. Normocephalic. No temporal or scalp tenderness. EYES: Pupils equal round and reactive. Extraocular motions intact. No scleral icterus. No injection or drainage. ENT: Nose without bleeding. NECK: Trachea midline. No JVD or lymphadenopathy. Supple, nontender, no meningeal signs. CARDIOVASCULAR: Regular rate and rhythm without murmurs, gallops, or rubs. RESPIRATORY: Decreased breath sounds bilateral, Right chest tube in place, Subcutaneous Emphysema GASTROINTESTINAL: Abdomen soft, non-tender, nondistended. No hepato-splenomegaly , or palpable masses. No guarding. MUSCULOSKELETAL: Extremities without clubbing, cyanosis, or edema. NEUROLOGICAL: Awake and alert. No focal deficits. A/P Problem List: (1) COPD (chronic obstructive pulmonary disease) ICD Code: J44.9 (2) Pneumothorax, right ICD Code: J93.9 (3) S/P chest tube placement ICD Code: Z93.8 Assessment and Plan 1. Acute Pneumothorax probably related to Severe COPD/Emphysema status post Right Chest tube placement, continue Oxygen, Cardiac Monitoring, pharmacy customer care specialist following, Bronchodilator, Mucolytic and Incentive spirometry. continue Levaquin, status post VATS, Pleurodesis and bigger chest tube placement. Improving Subcutaneous emphysema. --> LIKELY CT REMOVED TOMORROW PER CV SURGERY - home oxygen walk test ordered, may benefit from oxygen given his significant COPD 2. COPD/Emphysema Mild expiratory wheezing, continue on Steroids by pharmacy customer care specialist. 3. Tobacco dependence strongly recommended to stop smoking 4. Status post Left upper Lobe resection no clear diagnosis, followed by pharmacy customer care specialist Doctor Betr Hampton in [place] at [facility]. 5. Mild Leukocytosis worsening probable secondary to #1 started on Levaquin by pharmacy customer care specialist. 6. Mild Troponin elevation now trending down, probable related to #1. DVT prophylaxis with Heparin Gastric protection with Pepcid. Discharge Planning D/C pending resolution of pneumothorax and clearance by CT surgery. - home o2 walk test Problem Qualifiers (1) COPD (chronic obstructive pulmonary disease): Qualified Code: J44.1 - Chronic obstructive pulmonary disease with acute exacerbation Vijaya Reis MD R3 March 02, 2017 11:48
--- NOTE | 2017-03-02 14:27 | HHI.PR ---
Subjective Remarks NO SOB CHEST TUBE IN PLACE SMALL LEAK Objective Vital Signs Date Time Temp Pulse Resp B/P Pulse Ox O2 Delivery O2 Flow Rate FiO2 03/02/17 13:34 18 03/02/17 13:00 84 03/02/17 12:00 80 03/02/17 11:30 94 Nasal Cannula 2.00 Humidified 03/02/17 11:00 86 03/02/17 11:00 97.9 91 20 144/86 94 03/02/17 10:00 86 03/02/17 09:00 98 03/02/17 08:00 97.4 113 20 140/92 94 03/02/17 08:00 86 03/02/17 07:45 98 Nasal Cannula 2.00 03/02/17 07:00 94 Nasal Cannula 2.00 Humidified 03/02/17 07:00 87 03/02/17 05:00 112 03/02/17 04:00 73 03/02/17 04:00 97.3 112 20 152/98 96 03/02/17 04:00 Nasal Cannula 2.00 Humidified 03/02/17 03:00 72 03/02/17 02:00 74 03/02/17 01:00 86 03/02/17 00:00 98.2 115 22 143/90 95 03/02/17 00:00 Nasal Cannula 2.00 Humidified 03/02/17 00:00 103 03/01/17 23:00 82 03/01/17 22:00 90 03/01/17 21:00 122 03/01/17 20:00 98 03/01/17 20:00 Nasal Cannula 2.00 Humidified 03/01/17 20:00 97.6 128 22 147/93 96 03/01/17 19:32 94 Nasal Cannula 2.00 03/01/17 19:00 122 03/01/17 18:26 83 03/01/17 17:34 103 03/01/17 15:30 98.4 98 16 106/74 94 03/01/17 15:16 94 Nasal Cannula 3.00 03/01/17 15:16 97 I/O 03/01/17 03/01/17 03/01/17 03/02/17 03/02/17 03/02/17 07:00 15:00 23:00 07:00 15:00 23:00 Intake Total 690 ml 1180 ml 360 ml Output Total 576 ml 975 ml 925 ml Balance 114 ml 205 ml -565 ml Intake Oral 240 ml 1080 ml 360 ml IV Total 450 ml 100 ml 0 ml Output Urine Total 550 ml 975 ml 925 ml Chest Tube Drainage Total 26 ml 0 ml # Bowel Movements 0 0 Result Diagram: 03/01/17 0325 03/01/17 0425 Procedures Right Chest tube placement Status post VATS and new bigger Chest tube replaced. Objective Remarks GENERAL: SKIN: Warm and dry. HEAD: Atraumatic. Normocephalic. EYES: Pupils equal and round. No scleral icterus. No injection or drainage. ENT: No nasal bleeding or discharge. Mucous membranes pink and moist. NECK: Trachea midline. No JVD. CARDIOVASCULAR: Regular rate and rhythm. RESPIRATORY: No accessory muscle use. Clear to auscultation. Breath sounds equal bilaterally. GASTROINTESTINAL: Abdomen soft, non-tender, nondistended. Hepatic and splenic margins not palpable. MUSCULOSKELETAL: Extremities without clubbing, cyanosis, or edema. No obvious deformities. NEUROLOGICAL: Awake and alert. No obvious cranial nerve deficits. Motor grossly within normal limits. Five out of 5 muscle strength in the arms and legs. Normal speech. PSYCHIATRIC: Appropriate mood and affect; insight and judgment normal. Assessment and Plan Assessment and Plan IMPRESSION PNEUMOTHORAX CT IN PLACE IMPRESSION REMOVE CT WHEN POSSIBLE Walter Watson MD March 02, 2017 14:27
[2017-03-02] MEDS: DOCUSATE CALCIUM 240 MG CAP PO SCH (20:58)
[2017-03-03] VITALS (26 sets, daily range): BP systolic 134–149; BP diastolic 82–90; PULSE 65–112; RESP 18–20; TEMP 98.2–98.6; O2SAT 94–97
[2017-03-03] MEDS: ACETAMINOPHEN/HYDROcodone 325 MG/5 MG TAB PO PRN ×4 (02:23→22:54)
[2017-03-03] MEDS: HEPARIN SODIUM - SQ 10,000 UNITS/ML VIAL SQ SCH ×3 (04:26→20:38)
[2017-03-03] MEDS: INSULIN ASPART SUPPLEMENTAL SCALE SQ SCH ×5 (06:00→23:59)
[2017-03-03] MEDS: RESP: BUDESONIDE 0.5 MG/2 ML NEB NEB SCH ×2 (07:18→19:37)
[2017-03-03] MEDS: NICOTINE 14 MG/24 HR PATCH T-DERMAL SCH (08:34)
[2017-03-03] MEDS: predniSONE 5 MG TAB PO SCH (08:34)
[2017-03-03] MEDS: guaiFENesin E.R. 600 MG TAB PO SCH ×2 (08:35→20:38)
[2017-03-03] MEDS: METOPROLOL TARTRATE 25 MG TAB PO SCH ×2 (08:35→20:38)
[2017-03-03] MEDS: SODIUM CHLORIDE 0.9% FLUSH 10 ML FLUSH IV FLUSH SCH ×2 (08:36→20:38)
[2017-03-03] MEDS: LEVOFLOXACIN 500 MG TAB PO SCH (08:36)
[2017-03-03] MEDS: REMOVE OLD PATCH T-DERMAL SCH (08:37)
[2017-03-03] MEDS: MUPIROCIN 2% OINT 1 APPLIC/GM SYR NASAL SCH ×2 (08:37→20:38)
--- NOTE | 2017-03-03 09:02 | HHI.PR ---
Subjective Remarks Follow up acute pneumothorax 03/03/17-patient seen and examined ;denies any chest pain or shortness of breath. No acute event overnight Objective Vitals Vital Signs Date Time Temp Pulse Resp B/P Pulse Ox O2 Delivery O2 Flow Rate FiO2 03/03/17 07:19 97 Nasal Cannula 2.00 03/03/17 07:00 87 03/03/17 06:00 72 03/03/17 05:00 81 03/03/17 04:00 65 03/03/17 03:00 98.2 65 20 148/88 97 03/03/17 03:00 97 Nasal Cannula 2.00 Humidified 03/03/17 03:00 68 03/03/17 02:00 66 03/03/17 01:00 79 03/03/17 00:00 89 03/02/17 23:00 95 Nasal Cannula 2.00 Humidified 03/02/17 23:00 75 03/02/17 23:00 98.1 81 20 140/88 95 03/02/17 22:00 88 03/02/17 21:00 98 03/02/17 20:00 118 03/02/17 19:27 98 Nasal Cannula 2.00 03/02/17 19:00 79 03/02/17 19:00 96 Nasal Cannula 2.00 Humidified 03/02/17 19:00 98.0 89 20 155/86 96 03/02/17 18:00 86 03/02/17 17:00 90 03/02/17 16:00 86 03/02/17 15:30 96 Nasal Cannula 2.00 03/02/17 15:30 93 Nasal Cannula 2.00 Humidified 03/02/17 15:00 94 03/02/17 15:00 98.2 101 20 148/89 93 03/02/17 14:00 122 03/02/17 13:34 18 03/02/17 13:00 84 03/02/17 12:00 80 03/02/17 11:30 94 Nasal Cannula 2.00 Humidified 03/02/17 11:00 86 03/02/17 11:00 97.9 91 20 144/86 94 03/02/17 10:00 86 03/02/17 09:00 98 I/O 03/02/17 03/02/17 03/02/17 03/03/17 03/03/17 03/03/17 06:59 14:59 22:59 06:59 14:59 22:59 Intake Total 360 ml 600 ml Output Total 925 ml 1975 ml 1100 ml Balance -565 ml -1375 ml -1100 ml Intake Oral 360 ml 600 ml IV Total 0 ml Output Urine Total 925 ml 1975 ml 1100 ml Chest Tube Drainage Total 0 ml # Bowel Movements 0 0 0 Result Diagram: 03/01/17 0325 03/01/17 0425 Imaging Last Impressions Chest X-Ray 03/01/17 0600 Signed Impressions: Service Date/Time: Wednesday, March 01, 2017 04:51 - CONCLUSION: 1. Right chest tube present with extensive subcutaneous air. Minimal basilar airspace disease. No significant change. Bebo Morales MD Objective Remarks GENERAL: NAD SKIN: Warm and dry. HEAD: Normocephalic. EYES: No scleral icterus. No injection or drainage. NECK: Supple, trachea midline. No JVD or lymphadenopathy. CARDIOVASCULAR: Regular rate and rhythm without murmurs, gallops, or rubs. RESPIRATORY: Breath sounds equal bilaterally. No accessory muscle use. Right chest tube in place GASTROINTESTINAL: Abdomen soft, non-tender, nondistended. MUSCULOSKELETAL: No cyanosis, or edema. BACK: Nontender without obvious deformity. No CVA tenderness. A/P Problem List: (1) COPD (chronic obstructive pulmonary disease) ICD Code: J44.9 Status: Acute (2) Pneumothorax on left ICD Code: J93.9 Status: Acute (3) S/P chest tube placement ICD Code: Z93.8 Status: Acute (4) Pneumothorax, right ICD Code: J93.9 Status: Acute Assessment and Plan 66-year-old male with 1. Acute Pneumothorax probably related to Severe COPD/Emphysema status post VATS, Pleurodesis ;status post Right Chest tube placement, continue Oxygen, chargeback specialist following, Bronchodilator, Mucolytic and Incentive spirometry. continue Levaquin. Repeat CXR in Am 03/04/17 - home oxygen walk test ordered, may benefit from oxygen given his significant COPD 2. COPD/Emphysema , continue on Steroids by chargeback specialist. 3. Tobacco dependence strongly recommended to stop smoking 4. Status post Left upper Lobe resection no clear diagnosis, followed by chargeback specialist Doctor Bert mitchell [place] at [facility]. 5. Mild Leukocytosis worsening probable secondary to #1 started on Levaquin by chargeback specialist. 6. Mild Troponin elevation 2/2 #1 now trending down DVT prophylaxis with Heparin Gastric protection with Pepcid. Problem Qualifiers (1) COPD (chronic obstructive pulmonary disease): Qualified Code: J44.1 - Chronic obstructive pulmonary disease with acute exacerbation Alber Hudson MD March 03, 2017 09:02
--- NOTE | 2017-03-03 09:43 | RADRPT ---
EXAM DATE/TIME: 03/03/2017 08:49 [facility] COMPARISON: CHEST SINGLE AP, March 01, 2017, 4:51. INDICATIONS : Evaluate pneumothorax. MEDICAL HISTORY : Chronic obstructive pulmonary disease. SURGICAL HISTORY : Lobectomy. ENCOUNTER: Subsequent ACUITY: 1 week PAIN SCORE: 5/10 LOCATION: chest FINDINGS: Portable AP views of the chest demonstrate a normal-sized cardiac silhouette. Large bore right chest tube is present with tip at the apex of the hemithorax. There is a small right pneumothorax visualize d inferiorly. This was not visualized on the prior study. There is stable extensive subcutaneous emph ysema bilaterally. Bones demonstrate no acute finding. CONCLUSION: 1. Right chest tube remains present and there is a small right pneumothorax, new from the prior study . 2. Stable extensive bilateral subcutaneous emphysema. Jason Lala MD on March 03, 2017 at 9:40 Board Certified Radiologist. This report was verified electronically.
[2017-03-03] MEDS: FAMOTIDINE 20 MG/2 ML VIAL IV PUSH SCH ×2 (12:00→23:59)
--- NOTE | 2017-03-03 12:29 | HHI.PR ---
Subjective Remarks Went for VATS thoracotomy and pleurodesis with resection of blebs.Has improved and no leak from chest tube. was SOB . C/O pain Objective Vital Signs Date Time Temp Pulse Resp B/P Pulse Ox O2 Delivery O2 Flow Rate FiO2 03/03/17 11:10 96 Nasal Cannula 2.00 Humidified 03/03/17 11:05 98.6 80 20 138/82 94 03/03/17 11:00 94 03/03/17 10:00 95 03/03/17 09:00 102 03/03/17 08:00 98.5 80 20 134/84 94 03/03/17 08:00 94 Nasal Cannula 2.00 Humidified 03/03/17 08:00 110 03/03/17 07:35 18 03/03/17 07:19 97 Nasal Cannula 2.00 03/03/17 07:00 87 03/03/17 06:00 72 03/03/17 05:00 81 03/03/17 04:00 65 03/03/17 03:00 98.2 65 20 148/88 97 03/03/17 03:00 97 Nasal Cannula 2.00 Humidified 03/03/17 03:00 68 03/03/17 02:00 66 03/03/17 01:00 79 03/03/17 00:00 89 03/02/17 23:00 95 Nasal Cannula 2.00 Humidified 03/02/17 23:00 75 03/02/17 23:00 98.1 81 20 140/88 95 03/02/17 22:00 88 03/02/17 21:00 98 03/02/17 20:00 118 03/02/17 19:27 98 Nasal Cannula 2.00 03/02/17 19:00 79 03/02/17 19:00 96 Nasal Cannula 2.00 Humidified 03/02/17 19:00 98.0 89 20 155/86 96 03/02/17 18:00 86 03/02/17 17:00 90 03/02/17 16:00 86 03/02/17 15:30 96 Nasal Cannula 2.00 03/02/17 15:30 93 Nasal Cannula 2.00 Humidified 03/02/17 15:00 94 03/02/17 15:00 98.2 101 20 148/89 93 03/02/17 14:00 122 5/21/17 13:00 84 I/O 03/02/17 03/02/17 03/02/17 03/03/17 03/03/17 03/03/17 07:00 15:00 23:00 07:00 15:00 23:00 Intake Total 360 ml 600 ml Output Total 925 ml 1975 ml 1100 ml Balance -565 ml -1375 ml -1100 ml Intake Oral 360 ml 600 ml IV Total 0 ml Output Urine Total 925 ml 1975 ml 1100 ml Chest Tube Drainage Total 0 ml # Bowel Movements 0 0 0 Result Diagram: 03/01/17 0325 03/01/17 0425 Procedures Right Chest tube placement Status post VATS and new bigger Chest tube replaced. Objective Remarks GENERAL: This is a thinly built middle-aged white male who is alert and in no distress HEENT: Head normocephalic. Pupils reactive. Tongue is moist. Throat is clear. NECK: Supple. No bruits, no thyroid enlargement or lymphadenopathy. CHEST: Increased AP diameter with diminished breath sounds at the periphery. There is a chest tube in place in the right chest and wheezes scattered. bilaterally, prolonged expirations. HEART: The heart sounds are regular S1 and S2. No murmur. ABDOMEN: Soft, benign. No mass, no organomegaly. EXTREMITIES: No edema. Normal reflexes. NEUROLOGIC: No gross motor deficits. RECTAL: Exam is deferred. SKIN: Dry and cool. Assessment and Plan Assessment and Plan IMPRESSION 1. Spontaneous right pneumothorax, S/P VATS thoracotomy 2. Severe emphysema with chronic bronchitis 3. 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 Sub Q Emphysema Plan : 1. Chest X ray in am. 2. Chest tube out soon 3. Nebs qid , duoneb. 4. IS at bedside qid 5. D/C prednisone 6. Arrange home o2 2L 7. D/C Levaquin in am Jesus Harvey MD March 03, 2017 12:29
--- NOTE | 2017-03-03 14:36 | PD.CAR.PN ---
CVT Progress Note Subjective/Hospital Course: 02/23/17 Chest catheter "fell out" last night leading to recurrence of pneumothorax. Catheter replaced with resolution of pneumothorax. He has a small air leak this morning. 02/24/17 right pigtail chest tube in place, + air leak + subq emphysema chest right neck and arm on nasal cannula/ 3 liters CXR noted, resolution of PTX / small right lower lobe infiltrate 02/25 still has +1 air leak still has subqu emphysema chest right neck and arm, unchanged on nasal cannula 02/26 worsening right chest and arm subq emphysema CXR noted , no further PTX, intermittent +1 air leak 02/27 no change in air leak or subq emphysema pt will need right thoracoscopic exploration and pleurodesis in am procedures alternatives discussed with pt 03/01 Doing well Reportedly had a small air-leak No discernible leak this am Possibly remove CT tomorrow 03/03 chest tube to water seal small intermittent air leak subq emphysema improved eval for removal in am Objective: GENERAL: SKIN: Warm and dry. HEAD: Normocephalic. EYES: No scleral icterus. No injection or drainage. NECK: Supple, trachea midline. No JVD or lymphadenopathy. CARDIOVASCULAR: Regular rate and rhythm without murmurs, gallops, or rubs. RESPIRATORY: Breath sounds equal bilaterally. No accessory muscle use. subq emphysema improved, chest tube to water seal small intermittent air leak GASTROINTESTINAL: Abdomen soft, non-tender, nondistended. MUSCULOSKELETAL: No cyanosis, or edema. BACK: Nontender without obvious deformity. No CVA tenderness. Vital Signs Date Time Temp Pulse Resp B/P Pulse Ox O2 Delivery O2 Flow Rate FiO2 03/03/17 14:00 94 03/03/17 13:00 99 03/03/17 12:00 93 03/03/17 11:10 96 Nasal Cannula 2.00 Humidified 03/03/17 11:05 98.6 80 20 138/82 94 03/03/17 11:00 94 03/03/17 10:00 95 03/03/17 09:00 102 03/03/17 08:00 98.5 80 20 134/84 94 03/03/17 08:00 94 Nasal Cannula 2.00 Humidified 03/03/17 08:00 110 03/03/17 07:35 18 03/03/17 07:19 97 Nasal Cannula 2.00 03/03/17 07:00 87 03/03/17 06:00 72 03/03/17 05:00 81 03/03/17 04:00 65 03/03/17 03:00 98.2 65 20 148/88 97 03/03/17 03:00 97 Nasal Cannula 2.00 Humidified 03/03/17 03:00 68 03/03/17 02:00 66 03/03/17 01:00 79 03/03/17 00:00 89 03/02/17 23:00 95 Nasal Cannula 2.00 Humidified 03/02/17 23:00 75 03/02/17 23:00 98.1 81 20 140/88 95 03/02/17 22:00 88 03/02/17 21:00 98 03/02/17 20:00 118 03/02/17 19:27 98 Nasal Cannula 2.00 03/02/17 19:00 79 03/02/17 19:00 96 Nasal Cannula 2.00 Humidified 03/02/17 19:00 98.0 89 20 155/86 96 03/02/17 18:00 86 03/02/17 17:00 90 03/02/17 16:00 86 03/02/17 15:30 96 Nasal Cannula 2.00 03/02/17 15:30 93 Nasal Cannula 2.00 Humidified 03/02/17 15:00 94 03/02/17 15:00 98.2 101 20 148/89 93 Result Diagram: 03/01/17 0325 03/01/17 0425 (1) Pneumothorax, right Plan: replacement of pigtail chest + air leak / + subq emphysema continue pulm toileting keep chest tube to suction / 10cm will need surgery in am right thoracoscopic exploration with pleurodesis still has extensive sub q emphysema no further ptx on cxr (2) S/P chest tube placement (3) COPD (chronic obstructive pulmonary disease) Plan: on levaquin and steroids Problem Qualifiers (1) COPD (chronic obstructive pulmonary disease): Qualified Code: J44.1 - Chronic obstructive pulmonary disease with acute exacerbation Catina Noel March 03, 2017 14:36
[2017-03-03] MEDS: DOCUSATE CALCIUM 240 MG CAP PO SCH (20:38)
[2017-03-04] VITALS (30 sets, daily range): BP systolic 115–150; BP diastolic 76–96; PULSE 72–138; RESP 18–20; TEMP 97.8–98.4; O2SAT 92–97
[2017-03-04] MEDS: HEPARIN SODIUM - SQ 10,000 UNITS/ML VIAL SQ SCH ×3 (04:16→20:36)
[2017-03-04] MEDS: RESP: ALBUTEROL 2.5 MG/3 ML NEB (PRN) NEB (04:25)
[2017-03-04] MEDS: INSULIN ASPART SUPPLEMENTAL SCALE SQ SCH ×3 (06:00→18:00)
[2017-03-04] MEDS: ACETAMINOPHEN/HYDROcodone 325 MG/5 MG TAB PO PRN ×3 (07:23→18:38)
[2017-03-04] MEDS: METOPROLOL TARTRATE 25 MG TAB PO SCH ×2 (08:07→20:35)
[2017-03-04] MEDS: NICOTINE 14 MG/24 HR PATCH T-DERMAL SCH (08:07)
[2017-03-04] MEDS: REMOVE OLD PATCH T-DERMAL SCH (08:07)
[2017-03-04] MEDS: guaiFENesin E.R. 600 MG TAB PO SCH ×2 (08:07→20:35)
[2017-03-04] MEDS: predniSONE 5 MG TAB PO SCH (08:08)
[2017-03-04] MEDS: MUPIROCIN 2% OINT 1 APPLIC/GM SYR NASAL SCH ×2 (08:08→20:35)
[2017-03-04] MEDS: SODIUM CHLORIDE 0.9% FLUSH 10 ML FLUSH IV FLUSH SCH ×2 (08:08→20:36)
[2017-03-04] MEDS: RESP: BUDESONIDE 0.5 MG/2 ML NEB NEB SCH (08:34)
--- NOTE | 2017-03-04 08:47 | RADRPT ---
EXAM DATE/TIME: 03/04/2017 08:14 [facility] COMPARISON: CHEST SINGLE AP, March 03, 2017, 8:49. INDICATIONS : Follow-up right side pneumothorax. MEDICAL HISTORY : Chronic obstructive pulmonary disease. SURGICAL HISTORY : Lobectomy. ENCOUNTER: Subsequent ACUITY: 1 week PAIN SCORE: 1/10 LOCATION: Right chest FINDINGS: A single view of the chest demonstrates right basilar atelectasis. Right-sided chest tube without pn eumothorax. Extensive subcutaneous emphysema bilaterally. The cardiomediastinal contours are unremark able. Osseous structures are intact. CONCLUSION: No pneumothorax. Right basilar atelectasis. Alber Gibson MD on March 04, 2017 at 8:45 Board Certified Radiologist. This report was verified electronically.
--- NOTE | 2017-03-04 10:49 | HHI.PR ---
Subjective Remarks Follow up acute pneumothorax 03/03/17-patient seen and examined ;denies any chest pain or shortness of breath. No acute event overnight 03/04/17-patient seen and examined, right chest tube was removed this morning. Patient denies any shortness of breath or chest pain. Objective Vitals Vital Signs Date Time Temp Pulse Resp B/P Pulse Ox O2 Delivery O2 Flow Rate FiO2 03/04/17 10:23 87 03/04/17 09:00 90 03/04/17 08:37 95 Nasal Cannula 2.00 03/04/17 08:00 80 03/04/17 07:20 98.4 91 18 131/76 94 03/04/17 07:00 94 Nasal Cannula 2.00 03/04/17 07:00 72 03/04/17 06:00 89 03/04/17 05:00 86 03/04/17 04:28 95 Nasal Cannula 2.00 03/04/17 04:00 82 03/04/17 04:00 98.3 91 18 149/96 95 03/04/17 04:00 95 Nasal Cannula 3.00 Humidified 03/04/17 03:00 88 03/04/17 02:00 72 03/04/17 01:00 74 03/04/17 00:00 97.8 82 18 144/92 97 03/04/17 00:00 82 03/04/17 00:00 97 Nasal Cannula 3.00 Humidified 03/03/17 23:00 77 03/03/17 22:00 90 03/03/17 21:00 86 03/03/17 20:00 98.2 91 18 149/90 97 03/03/17 20:00 88 03/03/17 20:00 97 Nasal Cannula 3.00 Humidified 03/03/17 19:00 78 03/03/17 17:00 87 03/03/17 16:00 112 03/03/17 15:25 98.6 80 20 142/85 94 03/03/17 15:24 96 Nasal Cannula 2.00 Humidified 03/03/17 15:00 100 03/03/17 14:00 94 03/03/17 13:00 99 03/03/17 12:00 93 03/03/17 11:10 96 Nasal Cannula 2.00 Humidified 03/03/17 11:05 98.6 80 20 138/82 94 03/03/17 11:00 94 I/O 03/03/17 03/03/17 03/03/17 03/04/17 03/04/17 03/04/17 07:00 15:00 23:00 07:00 15:00 23:00 Intake Total 725 ml 360 ml Output Total 1100 ml 1375 ml 1266 ml Balance -1100 ml -650 ml -906 ml Intake Oral 725 ml 360 ml Output Urine Total 1100 ml 1375 ml 1250 ml Chest Tube Drainage Total 16 ml # Bowel Movements 0 1 0 Result Diagram: 03/01/17 0325 03/01/17 0425 Imaging Last Impressions Chest X-Ray 03/04/17 0000 Signed Impressions: Service Date/Time: Saturday, March 04, 2017 08:14 - CONCLUSION: No pneumothorax. Right basilar atelectasis. Alber Gibson MD Objective Remarks GENERAL: NAD SKIN: Warm and dry. HEAD: Normocephalic. EYES: No scleral icterus. No injection or drainage. NECK: Supple, trachea midline. No JVD or lymphadenopathy. CARDIOVASCULAR: Regular rate and rhythm without murmurs, gallops, or rubs. RESPIRATORY: Breath sounds equal bilaterally. No accessory muscle use. GASTROINTESTINAL: Abdomen soft, non-tender, nondistended. MUSCULOSKELETAL: No cyanosis, or edema. BACK: Nontender without obvious deformity. No CVA tenderness. Procedures status post VATS, Pleurodesis ;status post Right Chest tube placement which was removed 03/04/17 A/P Problem List: (1) COPD (chronic obstructive pulmonary disease) ICD Code: J44.9 Status: Acute (2) Pneumothorax on left ICD Code: J93.9 Status: Acute (3) S/P chest tube placement ICD Code: Z93.8 Status: Acute (4) Pneumothorax, right ICD Code: J93.9 Status: Acute Assessment and Plan 66-year-old male with 1. Acute Pneumothorax probably related to Severe COPD/Emphysema status post VATS, Pleurodesis ;status post Right Chest tube placement which was removed 03/04/17 today, continue Oxygen, creative services specialist following, Bronchodilator, Mucolytic and Incentive spirometry. continue Levaquin. Repeat CXR 03/03/17 noted and review without any evidence of pneumothorax - home oxygen walk test ordered, may benefit from oxygen given his significant COPD 2. COPD/Emphysema , s/p Steroids and continue with DuoNeb when necessary by creative services specialist. 3. Tobacco dependence strongly recommended to stop smoking 4. Status post Left upper Lobe resection no clear diagnosis, followed by creative services specialist Doctor Bert Hampton in [place] at [facility]. 5. Mild Leukocytosis worsening probable secondary to #1 started on Levaquin by creative services specialist. 6. Mild Troponin elevation 2/2 #1 now trending down DVT prophylaxis with Heparin Gastric protection with Pepcid. Problem Qualifiers (1) COPD (chronic obstructive pulmonary disease): Qualified Code: J44.1 - Chronic obstructive pulmonary disease with acute exacerbation Alber Hudson MD March 04, 2017 10:49
[2017-03-04] MEDS ORDERED: VENTAER INH (10:55)
[2017-03-04] MEDS ORDERED: METO25TA3 PO (10:55)
[2017-03-04] MEDS ORDERED: IPRA17I INH (10:55)
--- NOTE | 2017-03-04 11:12 | HHI.DS ---
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 Based in [place], came to [facility] to pick a car to deliver to [place], he has COPD/Emphysema with status post Left Upper lobe resection with no clear history of Neoplasia he has landing support specialist in [place] Doctor Bert Hampton he had last appointment In October this year and has next follow up in March this year, he states he woke up in am with some chest discomfort, but when came to [facility] had shortness of breath worsening, he was trying to use his inhaler but was told by his coordinator to get an ambulance he was brought in to ER and found Right Pneumothorax initially on BiPAP and then Chest tube placement. stable CBC/BMP: 03/01/17 0325 03/01/17 0425 Imaging Last Impressions Chest X-Ray 03/04/17 0000 Signed Impressions: Service Date/Time: Saturday, March 04, 2017 08:14 - CONCLUSION: No pneumothorax. Right basilar atelectasis. Alber Gibson MD PE at Discharge GENERAL: NAD SKIN: Warm and dry. HEAD: Normocephalic. EYES: No scleral icterus. No injection or drainage. NECK: Supple, trachea midline. No JVD or lymphadenopathy. CARDIOVASCULAR: Regular rate and rhythm without murmurs, gallops, or rubs. RESPIRATORY: Breath sounds equal bilaterally. No accessory muscle use. GASTROINTESTINAL: Abdomen soft, non-tender, nondistended. MUSCULOSKELETAL: No cyanosis, or edema. BACK: Nontender without obvious deformity. No CVA tenderness. Hospital Course 1. Acute Pneumothorax probably related to Severe COPD/Emphysema for which he was status post VATS, Pleurodesis ;status post Right Chest tube placement which was removed 03/04/17. He was treated with Oxygen, Bronchodilator, Mucolytic, steroid and Incentive spirometry as well as Levaquin. Repeat CXR noted and review without any evidence of pneumothorax. Patient passed oxygen walk test prior to discharge. Both cardiothoracic surgery and pulmonary medicine were consulted. He was started on a low-dose beta sarah. DVT and GI prophylaxis were provided. Pt Condition on Discharge: Stable Discharge Disposition: Discharge Home Discharge Time: > 30 minutes Discharge Instructions DIET: Follow Instructions for: Heart Healthy Diet Activities you can perform: Regular-No Restrictions Follow up Referrals: Appointment for Follow Up - 2 Weeks with Raisa Villanueva MD Appointment for Follow Up Appointment for Follow Up PCP Follow-up - 1 Week Pulmonology New Medications: Albuterol 18 GM Inh (Ventolin Hfa 18 GM Inh) 90 Mcg/Act Aer 2 PUFF INH Q4-6H PRN SHORTNESS OF BREATH #1 Ref 2 INHALER Ipratropium HFA 12.9 GM Inh (Atrovent HFA 12.9 GM Inh) 17 Mcg/Act Aer 2 PUFF INH Q6HR PRN SHORTNESS OF BREATH #1 Ref 1 INHALER Metoprolol Tartrate (Metoprolol Tartrate) 25 Mg Tab 12.5 MG PO Q12HR Blood Pressure Management #60 Ref 3 TAB Alber Hudson MD March 04, 2017 10:51
--- NOTE | 2017-03-04 11:14 | PD.CAR.PN ---
CVT Progress Note Subjective/Hospital Course: 02/23/17 Chest catheter "fell out" last night leading to recurrence of pneumothorax. Catheter replaced with resolution of pneumothorax. He has a small air leak this morning. 02/24/17 right pigtail chest tube in place, + air leak + subq emphysema chest right neck and arm on nasal cannula/ 3 liters CXR noted, resolution of PTX / small right lower lobe infiltrate 02/25 still has +1 air leak still has subqu emphysema chest right neck and arm, unchanged on nasal cannula 02/26 worsening right chest and arm subq emphysema CXR noted , no further PTX, intermittent +1 air leak 02/27 no change in air leak or subq emphysema pt will need right thoracoscopic exploration and pleurodesis in am procedures alternatives discussed with pt 03/01 Doing well Reportedly had a small air-leak No discernible leak this am Possibly remove CT tomorrow 03/03 chest tube to water seal small intermittent air leak subq emphysema improved eval for removal in am 03/04 CXR noted, no PTX chest tube dc without difficulty vaseline occlusive dressing applied pt to leave dressing in place x 48 hours then ok to shower Objective: GENERAL: SKIN: Warm and dry. HEAD: Normocephalic. EYES: No scleral icterus. No injection or drainage. NECK: Supple, trachea midline. No JVD or lymphadenopathy. CARDIOVASCULAR: Regular rate and rhythm without murmurs, gallops, or rubs. RESPIRATORY: Breath sounds equal bilaterally. No accessory muscle use. diminished in bases Vaseline gauze dressing to chest tube site GASTROINTESTINAL: Abdomen soft, non-tender, nondistended. MUSCULOSKELETAL: No cyanosis, or edema. BACK: Nontender without obvious deformity. No CVA tenderness. Vital Signs Date Time Temp Pulse Resp B/P Pulse Ox O2 Delivery O2 Flow Rate FiO2 03/04/17 10:23 87 03/04/17 09:00 90 03/04/17 08:37 95 Nasal Cannula 2.00 03/04/17 08:00 80 03/04/17 07:20 98.4 91 18 131/76 94 03/04/17 07:00 94 Nasal Cannula 2.00 03/04/17 07:00 72 03/04/17 06:00 89 03/04/17 05:00 86 03/04/17 04:28 95 Nasal Cannula 2.00 03/04/17 04:00 82 03/04/17 04:00 98.3 91 18 149/96 95 03/04/17 04:00 95 Nasal Cannula 3.00 Humidified 03/04/17 03:00 88 03/04/17 02:00 72 03/04/17 01:00 74 03/04/17 00:00 97.8 82 18 144/92 97 03/04/17 00:00 82 03/04/17 00:00 97 Nasal Cannula 3.00 Humidified 03/03/17 23:00 77 03/03/17 22:00 90 03/03/17 21:00 86 03/03/17 20:00 98.2 91 18 149/90 97 03/03/17 20:00 88 03/03/17 20:00 97 Nasal Cannula 3.00 Humidified 03/03/17 19:00 78 03/03/17 17:00 87 03/03/17 16:00 112 03/03/17 15:25 98.6 80 20 142/85 94 03/03/17 15:24 96 Nasal Cannula 2.00 Humidified 03/03/17 15:00 100 03/03/17 14:00 94 03/03/17 13:00 99 03/03/17 12:00 93 03/03/17 11:10 96 Nasal Cannula 2.00 Humidified 03/03/17 11:05 98.6 80 20 138/82 94 03/03/17 11:00 94 Result Diagram: 03/01/17 0325 03/01/17 0425 (1) Pneumothorax, right Plan: sub q emphysema improved chest tube removed without difficulty ok for dc after walk test/ for 02 has f/u appointment in 2 weeks (2) S/P chest tube placement (3) COPD (chronic obstructive pulmonary disease) Plan: on levaquin and steroids Problem Qualifiers (1) COPD (chronic obstructive pulmonary disease): Qualified Code: J44.1 - Chronic obstructive pulmonary disease with acute exacerbation Catina Noel March 04, 2017 11:09
[2017-03-04] MEDS: FAMOTIDINE 20 MG/2 ML VIAL IV PUSH SCH (13:11)
--- NOTE | 2017-03-04 15:30 | RADRPT ---
EXAM DATE/TIME: 03/04/2017 14:51 [facility] COMPARISON: CHEST SINGLE AP, March 03, 2017, 8:49. CHEST SINGLE AP, February 20, 2017, 9:03. CHEST SINGLE AP, March 04, 2017, 8:14. INDICATIONS : Post right side chest tube removal. MEDICAL HISTORY : Chronic obstructive pulmonary disease. SURGICAL HISTORY : Lobectomy. ENCOUNTER: Subsequent ACUITY: 2 weeks PAIN SCORE: 4/10 LOCATION: Right chest FINDINGS: Right thoracostomy tube has been removed. There is no evidence of pneumothorax. There is persistent e xtensive subcutaneous emphysema in the neck in the chest. There is mild atelectasis and/or scarring i n the lung bases with blunting of the costophrenic angles. Right hilum appears prominent with mild james rrounding reticular interstitial thickening. There is some scarring in the left suprahilar and perihi lar region. CONCLUSION: Thoracotomy tube removal with no evidence of pneumothorax. Abnormal appearance of the underlying ches t. If the patient has not undergone CT of the chest, this would be recommended. Jason Phan MD on March 04, 2017 at 15:27 Board Certified Radiologist. This report was verified electronically.
--- NOTE | 2017-03-04 20:00 | HHI.PR ---
Subjective Remarks Went for VATS thoracotomy and pleurodesis with resection of blebs.Has improved . Chest tube out and CXR shows no pneumothorax No wheezing. Objective Vital Signs Date Time Temp Pulse Resp B/P Pulse Ox O2 Delivery O2 Flow Rate FiO2 03/04/17 18:25 109 03/04/17 17:46 102 03/04/17 16:35 114 03/04/17 15:42 94 Room Air 03/04/17 15:30 97.8 103 20 115/83 94 03/04/17 15:00 114 03/04/17 14:00 138 03/04/17 13:00 118 03/04/17 12:00 90 03/04/17 11:35 92 Room Air 03/04/17 11:32 98.2 88 19 117/77 97 03/04/17 11:00 96 03/04/17 10:23 87 03/04/17 09:00 90 03/04/17 08:37 95 Nasal Cannula 2.00 03/04/17 08:00 80 03/04/17 07:20 98.4 91 18 131/76 94 03/04/17 07:00 94 Nasal Cannula 2.00 03/04/17 07:00 72 03/04/17 06:00 89 03/04/17 05:00 86 03/04/17 04:28 95 Nasal Cannula 2.00 03/04/17 04:00 82 03/04/17 04:00 98.3 91 18 149/96 95 03/04/17 04:00 95 Nasal Cannula 3.00 Humidified 03/04/17 03:00 88 03/04/17 02:00 72 03/04/17 01:00 74 03/04/17 00:00 97.8 82 18 144/92 97 03/04/17 00:00 82 03/04/17 00:00 97 Nasal Cannula 3.00 Humidified 03/03/17 23:00 77 03/03/17 22:00 90 03/03/17 21:00 86 03/03/17 20:00 98.2 91 18 149/90 97 03/03/17 20:00 88 03/03/17 20:00 97 Nasal Cannula 3.00 Humidified I/O 03/03/17 03/03/17 03/03/17 03/04/17 03/04/17 03/04/17 07:00 15:00 23:00 07:00 15:00 23:00 Intake Total 725 ml 360 ml Output Total 1100 ml 1375 ml 1266 ml 965 ml Balance -1100 ml -650 ml -906 ml -965 ml Intake Oral 725 ml 360 ml Output Urine Total 1100 ml 1375 ml 1250 ml 965 ml Chest Tube Drainage Total 16 ml # Bowel Movements 0 1 0 1 Result Diagram: 03/01/17 0325 03/01/17 0425 Procedures Right Chest tube placement Status post VATS and new bigger Chest tube replaced. Objective Remarks GENERAL: This is a thinly built middle-aged white male who is alert and in no distress HEENT: Head normocephalic. Pupils reactive. Tongue is moist. Throat is clear. NECK: Supple. No bruits, no thyroid enlargement or lymphadenopathy. CHEST: Increased AP diameter with diminished breath sounds at the periphery. Occ wheezes bilaterally, prolonged expirations. HEART: The heart sounds are regular S1 and S2. No murmur. ABDOMEN: Soft, benign. No mass, no organomegaly. EXTREMITIES: No edema. Normal reflexes. NEUROLOGIC: No gross motor deficits. RECTAL: Exam is deferred. SKIN: Dry and cool. Assessment and Plan Assessment and Plan IMPRESSION 1. Spontaneous right pneumothorax, S/P VATS thoracotomy 2. Severe emphysema with chronic bronchitis 3. 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 Sub Q Emphysema Plan : 1. IS at bedside qid 2. D/C O2 if sats >89 on RA 3. Nebs qid , duoneb. 4. D/C Prednisone 5. Add Symbicort 160/4.5 mcg 2 puffs bid 6. Home per Jesus Limon MD March 04, 2017 20:00
[2017-03-04] MEDS: BUDESONIDE-FORMOTEROL 160/4.5 MCG INHALER INH SCH (22:01)
[2017-03-05] VITALS (18 sets, daily range): BP systolic 102–154; BP diastolic 71–91; PULSE 77–112; RESP 18–19; TEMP 97.6–98.1; O2SAT 91–93
[2017-03-05] MEDS: ACETAMINOPHEN/HYDROcodone 325 MG/5 MG TAB PO PRN ×3 (00:18→10:11)
[2017-03-05] MEDS: FAMOTIDINE 20 MG/2 ML VIAL IV PUSH SCH ×2 (00:18→11:57)
[2017-03-05] MEDS: HEPARIN SODIUM - SQ 10,000 UNITS/ML VIAL SQ SCH ×2 (04:05→11:56)
[2017-03-05] MEDS: REMOVE OLD PATCH T-DERMAL SCH (08:23)
[2017-03-05] MEDS: METOPROLOL TARTRATE 25 MG TAB PO SCH (08:23)
[2017-03-05] MEDS: SODIUM CHLORIDE 0.9% FLUSH 10 ML FLUSH IV FLUSH SCH (08:23)
[2017-03-05] MEDS: NICOTINE 14 MG/24 HR PATCH T-DERMAL SCH (08:23)
[2017-03-05] MEDS: MUPIROCIN 2% OINT 1 APPLIC/GM SYR NASAL SCH (08:23)
[2017-03-05] MEDS: guaiFENesin E.R. 600 MG TAB PO SCH (08:23)
[2017-03-05] MEDS: BUDESONIDE-FORMOTEROL 160/4.5 MCG INHALER INH SCH (08:23)
--- NOTE | 2017-03-05 10:19 | HHI.PR ---
Subjective Remarks Follow up acute pneumothorax 03/03/17-patient seen and examined ;denies any chest pain or shortness of breath. No acute event overnight 03/04/17-patient seen and examined, right chest tube was removed this morning. Patient denies any shortness of breath or chest pain. 03/05/17-patient seen and examined, denies any chest pain or shortness of breath. Ambulated without any difficulty. Complaint of symptomatic low blood glucose This morning however resolved. He did pass walk test yesterday Objective Vitals Vital Signs Date Time Temp Pulse Resp B/P Pulse Ox O2 Delivery O2 Flow Rate FiO2 03/05/17 07:55 97.6 97 19 154/91 92 03/05/17 06:00 96 03/05/17 05:17 16 03/05/17 05:00 77 03/05/17 04:00 80 03/05/17 03:00 98.1 109 18 131/82 91 03/05/17 03:00 84 03/05/17 02:00 88 03/05/17 01:28 18 03/05/17 01:00 86 03/05/17 00:00 102 03/04/17 23:00 92 Room Air 03/04/17 23:00 97.8 90 18 150/93 92 03/04/17 23:00 93 03/04/17 22:00 82 03/04/17 21:35 94 21 03/04/17 21:00 94 03/04/17 20:00 94 03/04/17 19:00 95 Room Air 03/04/17 19:00 98.4 104 18 135/89 94 03/04/17 19:00 102 03/04/17 18:25 109 03/04/17 17:46 102 03/04/17 16:35 114 03/04/17 15:42 94 Room Air 03/04/17 15:30 97.8 103 20 115/83 94 03/04/17 15:00 114 03/04/17 14:00 138 03/04/17 13:00 118 03/04/17 12:00 90 03/04/17 11:35 92 Room Air 03/04/17 11:32 98.2 88 19 117/77 97 03/04/17 11:00 96 03/04/17 10:23 87 I/O 503/04/17 03/04/17 03/05/17 03/05/17 03/05/17 06:59 14:59 22:59 06:59 14:59 22:59 Intake Total 360 ml 480 ml Output Total 1266 ml 965 ml 400 ml Balance -906 ml -965 ml 80 ml Intake Oral 360 ml 480 ml Output Urine Total 1250 ml 965 ml 400 ml Chest Tube Drainage Total 16 ml # Voids 1 # Bowel Movements 0 1 Result Diagram: 03/01/17 0325 03/01/17 0425 Objective Remarks GENERAL: NAD SKIN: Warm and dry. HEAD: Normocephalic. EYES: No scleral icterus. No injection or drainage. NECK: Supple, trachea midline. No JVD or lymphadenopathy. CARDIOVASCULAR: Regular rate and rhythm without murmurs, gallops, or rubs. RESPIRATORY: Breath sounds equal bilaterally. No accessory muscle use. GASTROINTESTINAL: Abdomen soft, non-tender, nondistended. MUSCULOSKELETAL: No cyanosis, or edema. BACK: Nontender without obvious deformity. No CVA tenderness. Procedures status post VATS, Pleurodesis ;status post Right Chest tube placement which was removed 03/04/17 A/P Problem List: (1) COPD (chronic obstructive pulmonary disease) ICD Code: J44.9 Status: Acute (2) Pneumothorax on left ICD Code: J93.9 Status: Acute (3) S/P chest tube placement ICD Code: Z93.8 Status: Acute (4) Pneumothorax, right ICD Code: J93.9 Status: Acute Assessment and Plan 66-year-old male with 1. Acute Pneumothorax probably related to Severe COPD/Emphysema status post VATS, Pleurodesis ;status post Right Chest tube placement which was removed 03/04/17 today, continue Oxygen, search specialist following, Bronchodilator, Mucolytic and Incentive spirometry. continue Levaquin. Repeat CXR 03/03/17 noted and review without any evidence of pneumothorax - Passed home oxygen walk test 03/04/17 2. COPD/Emphysema , s/p Steroids and continue with DuoNeb when necessary by search specialist. 3. Tobacco dependence strongly recommended to stop smoking 4. Status post Left upper Lobe resection no clear diagnosis, followed by search specialist Doctor Bert mitchell Ferney at [facility]. 5. Mild Leukocytosis worsening probable secondary to #1 . Currently on Levaquin by search specialist. 6. Mild Troponin elevation 2/2 #1 now trending down DVT prophylaxis with Heparin Gastric protection with Pepcid. Problem Qualifiers (1) COPD (chronic obstructive pulmonary disease): Qualified Code: J44.1 - Chronic obstructive pulmonary disease with acute exacerbation Abler Hudson MD March 05, 2017 10:19
--- NOTE | 2017-03-05 10:55 | PD.CAR.PN ---
CVT Progress Note Subjective/Hospital Course: 02/23/17 Chest catheter "fell out" last night leading to recurrence of pneumothorax. Catheter replaced with resolution of pneumothorax. He has a small air leak this morning. 02/24/17 right pigtail chest tube in place, + air leak + subq emphysema chest right neck and arm on nasal cannula/ 3 liters CXR noted, resolution of PTX / small right lower lobe infiltrate 02/25 still has +1 air leak still has subqu emphysema chest right neck and arm, unchanged on nasal cannula 02/26 worsening right chest and arm subq emphysema CXR noted , no further PTX, intermittent +1 air leak 02/27 no change in air leak or subq emphysema pt will need right thoracoscopic exploration and pleurodesis in am procedures alternatives discussed with pt 03/01 Doing well Reportedly had a small air-leak No discernible leak this am Possibly remove CT tomorrow 03/03 chest tube to water seal small intermittent air leak subq emphysema improved eval for removal in am 03/04 CXR noted, no PTX chest tube dc without difficulty vaseline occlusive dressing applied pt to leave dressing in place x 48 hours then ok to shower 03/05 doing well, passed walk test , on room air dressing in place right anterior chest wall ok to shower tomorrow ok to dc home from [facility] standpoint Objective: GENERAL: SKIN: Warm and dry./ dressing in place right anterior chest HEAD: Normocephalic. EYES: No scleral icterus. No injection or drainage. NECK: Supple, trachea midline. No JVD or lymphadenopathy. CARDIOVASCULAR: Regular rate and rhythm without murmurs, gallops, or rubs. RESPIRATORY: Breath sounds equal bilaterally. No accessory muscle use. GASTROINTESTINAL: Abdomen soft, non-tender, nondistended. MUSCULOSKELETAL: No cyanosis, or edema. BACK: Nontender without obvious deformity. No CVA tenderness. Vital Signs Date Time Temp Pulse Resp B/P Pulse Ox O2 Delivery O2 Flow Rate FiO2 03/05/17 07:55 97.6 97 19 154/91 92 03/05/17 06:00 96 03/05/17 05:17 16 03/05/17 05:00 77 03/05/17 04:00 80 03/05/17 03:00 98.1 109 18 131/82 91 03/05/17 03:00 84 03/05/17 02:00 88 03/05/17 01:28 18 03/05/17 01:00 86 03/05/17 00:00 102 03/04/17 23:00 92 Room Air 03/04/17 23:00 97.8 90 18 150/93 92 03/04/17 23:00 93 03/04/17 22:00 82 03/04/17 21:35 94 21 03/04/17 21:00 94 03/04/17 20:00 94 03/04/17 19:00 95 Room Air 03/04/17 19:00 98.4 104 18 135/89 94 03/04/17 19:00 102 03/04/17 18:25 109 03/04/17 17:46 102 03/04/17 16:35 114 03/04/17 15:42 94 Room Air 03/04/17 15:30 97.8 103 20 115/83 94 03/04/17 15:00 114 03/04/17 14:00 138 03/04/17 13:00 118 03/04/17 12:00 90 03/04/17 11:35 92 Room Air 03/04/17 11:32 98.2 88 19 117/77 97 03/04/17 11:00 96 Result Diagram: 03/01/17 0325 03/01/17 0425 (1) Pneumothorax, right Plan: sub q emphysema improved chest tube removed without difficulty ok for dc after walk test/ for 02 has f/u appointment in 2 weeks (2) S/P chest tube placement (3) COPD (chronic obstructive pulmonary disease) Plan: on levaquin and steroids Problem Qualifiers (1) COPD (chronic obstructive pulmonary disease): Qualified Code: J44.1 - Chronic obstructive pulmonary disease with acute exacerbation Catina Noel March 05, 2017 10:55
[2017-03-05] MEDS ORDERED: METO25TA3 PO (12:04)
[2017-03-05] MEDS ORDERED: METOPROLOL TARTRATE 25 MG TAB PO SCH (21:00)
== END 2017-03-05 14:32 | disposition home or self-care (01) | DRG 167 ==
LOC: NEPE 08:56 → NEDA 10:52 → HCIN 14:01
PROVIDERS: ADMIT Hospitalist; ATTEND Hospitalist
PROC: 0W9930Z Drainage of Right Pleural Cavity with Drainage Device, Percutaneous Approach (ICD-10-PCS; 2017-02-20)
PROC: 5A09357 Assistance with Respiratory Ventilation, Less than 24 Consecutive Hours, Continuous Positive Airway Pressure (ICD-10-PCS; 2017-02-20)
PROC: 0W9930Z Drainage of Right Pleural Cavity with Drainage Device, Percutaneous Approach (ICD-10-PCS; 2017-02-23)
PROC: 0W9940Z Drainage of Right Pleural Cavity with Drainage Device, Percutaneous Endoscopic Approach (ICD-10-PCS; 2017-02-28)
PROC: 3E0L3GC Introduction of Other Therapeutic Substance into Pleural Cavity, Percutaneous Approach (ICD-10-PCS; 2017-02-28)
PROC: 0WJ Anatomical Regions, General, Inspection (ICD-10-PCS; principal; 2017-02-28 11:25)
DX: J93.0 Spontaneous tension pneumothorax (principal); J44.1 Chronic obstructive pulmonary disease with (acute) exacerbation; I10 Essential (primary) hypertension; D72.829 Elevated white blood cell count, unspecified; R00.0 Tachycardia, unspecified; T81.82XA Emphysema (subcutaneous) resulting from a procedure, initial encounter; F12.10 Cannabis abuse, uncomplicated; Y82.8 Other medical devices associated with adverse incidents; Y92.238 Other place in hospital as the place of occurrence of the external cause; Y84.8 Other medical procedures as the cause of abnormal reaction of the patient, or of later complication, without mention of misadventure at the time of the procedure; Z22.322 Carrier or suspected carrier of Methicillin resistant Staphylococcus aureus; Z90.2 Acquired absence of lung [part of]
CPT/HCPCS: 32551; 71010; 80048; 80053; 80061; 81001; 82550; 82552; 82948; 83036; 83735; 83880; 84439; 84443; 84484; 85025; 85027; 85610; 85730; 86850; 86900; 86901; 87641; 93005; 94002; 94150; 94620; 94640; 94664; 96374; J0690; J1644; J2060; J2250; J2270; J2370; J3010; J7030; J7050; J7512; J7613; J7626